=== PATIENT | male | born 1940 | race Caucasian/White ===

== ENCOUNTER 2019-08-18 09:50 | Outpatient (CLI) | payer MEDICARE, SELFPAY ==
--- NOTE | 2019-08-18 10:48 | CT_ITS ---
WS: [id number] CT ABDOMEN AND PELVIS WITH CONTRAST HISTORY: BLADDER MASS TECHNIQUE: Imaging performed of the abdomen and pelvis with IV contrast. Two phase imaging of the ab domen. Coronal and sagittal reformats are submitted. All CT scans at [facility] use at le ast one of these dose optimization techniques: automated exposure control; mA and/or kV adjustment pe r patient size (includes targeted exams where dose is matched to clinical indication); or iterative r econstruction. IV CONTRAST: Visipaque 320; 95 mL IV. Oral contrast: No DLP: 2116.53 mGycm COMPARISON: Ultrasound 03/04/2012 and prior chest CTA 07/08/2015. Lower thorax: Lung bases are clear. Heart is normal size. Small hiatal hernia. Liver/biliary system: Liver is top normal size. There are several scattered hypodensities throughout the liver. There is an additional mass in the RIGHT lobe of the liver with variable peripheral globul ar enhancement. Mass measures 8.0 x 5.1 cm. Mass has been described in the liver on a prior ultrasoun d from [address] from 2014. Suspect this is an atypical hemangioma. The additional smaller scattered hypodensities are probably cysts but too small to characterize. Gallbladder: Normal. No gallstones or wall thickening. No pericholecystic fluid. Pancreas: Normal. Spleen: Normal size spleen with granulomata. Adrenal glands: Normal. Right kidney: Several small cortical cysts. The largest measures 1.1 cm from the lower pole. No obstr uction or mass. Left kidney: Normal. Aorta: Tortuous ectatic aorta. 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 Lymphadenopathy: None. Free fluid: None. GI tract: Unremarkable. Abdominal wall: Small fat-containing abdominal hernia. Pelvis: Well-distended urinary bladder. There is very mild diffuse bladder wall thickening. Markedly enlarged prostate gland indents the posterior bladder. Prostate gland measures 8.4 x 5.6 x 6.2 cm and contains calcification. Bones: Mild narrowing of the hip joints. No osteoblastic or osteolytic bone disease. CT/CT abdomen pelvis w con* [id number] IMPRESSION: 1. Markedly enlarged prostate gland measuring 8.4 x 5.6 x 6.2 cm. Evaluate for possible prostate cancer. 2. Mild diffuse thickening of the bladder wall may be due to bladder outlet ob struction. 3. Hepatic mass measures 8.0 x 5.1 cm. 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 4. Tortuous ectatic aorta with a saccular aneurysm measuring 3.5 cm.
[2019-08-18] MEDS: iodixanol 320 mg/mL 100mL Btl IV (11:20)
== END 2019-08-18 09:51 | disposition home or self-care (01) ==
LOC: RADWPI 09:58
PROVIDERS: Family Provider Internal Medicine; PCP Internal Medicine; Visit Provider Internal Medicine
DX: N32.89 Other specified disorders of bladder (principal); N40.0 Benign prostatic hyperplasia without lower urinary tract symptoms; R16.0 Hepatomegaly, not elsewhere classified; I71.9 Aortic aneurysm of unspecified site, without rupture
CPT/HCPCS: 74177; Q9967

== ENCOUNTER → 2019-10-05 09:47 | Outpatient (BNVA) | payer MEDICARE, SELFPAY | PROVIDERS: Family Provider Internal Medicine; PCP Internal Medicine; Visit Provider Urology | DX: N40.0 Benign prostatic hyperplasia without lower urinary tract symptoms (principal); R97.20 Elevated prostate specific antigen [PSA]; C67.4 Malignant neoplasm of posterior wall of bladder | CPT/HCPCS: 81001; 84153 ==

== ENCOUNTER → 2019-10-13 09:23 | Outpatient (BNVA) | payer MEDICARE, SELFPAY | PROVIDERS: Family Provider Internal Medicine; PCP Internal Medicine; Visit Provider Urology | DX: C67.9 Malignant neoplasm of bladder, unspecified (principal); C67.4 Malignant neoplasm of posterior wall of bladder | CPT/HCPCS: 81001 ==

== ENCOUNTER → 2019-12-16 10:30 | Outpatient (BNVA) | payer MEDICARE, SELFPAY | PROVIDERS: Family Provider Internal Medicine; PCP Internal Medicine; Visit Provider Urology | DX: C67.4 Malignant neoplasm of posterior wall of bladder (principal) | CPT/HCPCS: 81001 ==

== ENCOUNTER 2020-06-06 13:07 | Emergency (ER) | payer MEDICARE, SELFPAY ==
[2020-06-06] VITALS (9 sets, daily range): BP systolic 134–161; BP diastolic 81–100; PULSE 67–92; RESP 12–20; TEMP 36.9–37.1; O2SAT 95–99; BMI 23.7
--- NOTE | 2020-06-06 15:20 | ED_ITS ---
HPI - COVID General: Chief Complaint: COVID symptoms Stated Complaint: COVID+, BCC CHECKED Time Seen by Provider: 06/06/20 13:47 Triage information: No fever, cough or shortness of breath . Exposure to COVID + person last 14 days History of Present Illness: HPI Narrative: Bob is a pleasant 79-year-old male presents emergency room with complaint of recently being diagnosed with Covid. He is not really having any symptoms. He was seen at [facility] today and found to be positive on a rapid antigen he felt a little weak but other than that he has been fine. He does have a history of hypertension ischemic cardiomyopathy systolic congestive heart failure as well as bladder cancer. His breathing is at his baseline he is not had any change she has not had a significant cough. Overall he says he has very few to no symptoms at this time. MD complaint: known COVID positive Prior covid testing: yes, results known Prior testing date: 06/06/20 COVID 19 common symptoms: positive cough and fatigue; negative dyspnea, throat pain, nasal congestion, nausea, vomiting or diarrhea COVID 19 other sytmptoms: negative chest pain Onset (ago): day(s) Pertinent comorbid conditions: hypertension, heart disease and COPD/respiratory disease Treatment prior to arrival: none COVID Results: No Data to Display Review of Systems Const: Reports: fatigue ENMT: Denies: throat pain, ear or mastoid pain, nasal discharge or nasal congestion Card: Denies: chest pain, edema, dyspnea on exertion or orthopnea Resp: Denies: dyspnea GI: Denies: abdominal pain, nausea, vomiting, hematemesis, coffee ground emesis, diarrhea, constipation, bloating, hematochezia or melena : Denies: flank pain, dysuria, urinary frequency or urinary urgency Skin/Breast: Denies: rash or pruritus PFSH ED PFSH: Medical History (Updated 06/06/20 @ 15:48 by Dani Lewis DO) Bladder cancer Elevated PSA Enlarged prostate HTN (hypertension) Hyperlipidemia Ischemic cardiomyopathy Systolic heart failure Surgical History S/P PTCA (percutaneous transluminal coronary angioplasty) Family History Father , at age 91 No problems noted. Mother , at age 91 No problems noted. 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 History of recent travel: Yes ([place]) Out of country: Yes Physical Exam Const: COMMON NORMALS: no acute distress GENERAL APPEARANCE: cooperative and comfortable ORIENTATION/CONSCIOUSNESS: Yes awake, Yes oriented to person, Yes oriented to place and Yes oriented to time HENMT: COMMON NORMALS: normocephalic, atraumatic and hearing grossly normal bilaterally HEAD & SCALP: normocephalic and atraumatic Neck/C-Spine: COMMON NORMALS: no JVD Resp: COMMON NORMALS: normal respiratory effort, No retractions, No use of accessory muscles and clear to auscultation bilaterally AUSCULTATION: clear to auscultation bilaterally Cardio: COMMON NORMALS: no JVD, regular rate, regular rhythm and No murmurs present (Cardio) RATE: regular rate RHYTHM: regular rhythm GI: COMMON NORMALS: Soft to palpation and No hepatosplenomegaly present AUSCULTATION: Yes normoactive bowel sounds PALPATION: Yes Soft to palpation, No Tenderness to palpation present (GI), No Guarding due to palpation present (GI) and Yes No hepatosplenomegaly present Extremity: COMMON NORMALS: normal to inspection, capillary refill normal, no clubbing, cyanosis or edema, no calf tenderness and no pedal edema Neuro: SENSORIUM/ORIENTATION: Yes oriented to person, Yes oriented to place and Yes oriented to time Skin: COMMON NORMALS: no rashes or lesions noted GENERAL SKIN EXAM: no rashes or lesions noted Course Vital Signs: Vital signs: Vital Signs Temperature 98.4 F 06/06/20 19:57 Pulse Rate 70 06/06/20 19:57 Respiratory Rate 18 06/06/20 19:57 Blood Pressure 142/82 06/06/20 19:57 Pulse Oximetry 96 06/06/20 19:57 MDM - COVID MDM Narrative: Medical decision making narrative: Patient tested positive earlier today at [facility] and a rapid antigen test we called to get documentation unfortunately they do not have a printout on their machine but they do recorded in her chart. Verified this with her lab and also talk to Dr. Weir who is on-call for [facility]. They can affirm that he did test positive. I discussed the option of getting IV infusion of monoclonal antibodies with the patient. We discussed the risks and the benefits and why it is that he qualifies. He would like to go ahead and proceed. Will have him sign the consents and start the infusion here in the hospital nursing is checking to see if he will have it here in the ER or if he will be brought over to the outpatient GI lab. Patient completed infusion in the ER department and was discharged home. Discussed signs and symptoms of worsening encouraged to worsen if is any difficulty breathing. COVID Results: No Data to Display Bamlanivimab Consideration Inclusion/Exclusion Criteria age >/= 65 positive rapid antigent test other site ([facility]) hypertension, cardiovascular disease and COPD/other respiratory disease not requiring hospitalization, not requiring oxygen (if not chronically on oxygen) and no increase oxygen requirement (if chronically on oxygen) Patient education Bamlanivimab education: patient/family/caregiver received/reviewed fact sheet, Emergency Use Authorization/unapproved drug status discussed with patient/family/caregiver, alternatives to this treatment discussed with patient/family/caregiver, risks and benefits of medication reviewed with p atient/family/caregiver, patient/family/caregiver given opportunity for questions, which were answered and patient consents to receiving Bamlanivimab Plan for treatment Meets criteria for BAM infusion Bamlanivimab information given and Order infusion of Bamlanivimab today. Other information Direct antigen test at [facility] confirmed with their office as well as with Dr. Weir. He had a positive direct antigen their machine is not printing out a formal result it is read off the machine and then entered into their computer system. Discharge Plan Discharge Patient Disposition: Home Clinical Impression: Asymptomatic COVID-19 virus infection Condition: Stable Prescriptions: No Action nitroglycerin [Nitrostat] 0.4 mg tablet, sublingual 0.4 mg SUBLINGUAL DIRECTED RF: 0 cholecalciferol (vitamin D3) 400 unit capsule 400 unit PO DAILY RF: 0 lisinopril 2.5 mg tablet 1.25 mg PO BID RF: 0 alprazolam 0.25 mg tablet 0.25 mg PO BID RF: 0 rosuvastatin 5 mg tablet 5 mg PO DAILY Qty: 90 RF: 3 sertraline 25 mg tablet 25 mg PO DAILY RF: 0 Discharge Orders: Discharge Order (Routine); Ordered 06/06/20 Ordered By: Renetta Gama Referrals: Bryn Sandoval DO [Primary Care Provider] - 1-3 days Discharge Diet: Usual diet Discharge Activity: Resume usual activity Activity Restrictions/Additional Instructions: Follow-up with your primary care doctor with the emergency room if you have any further symptoms, or worsening symptoms of shortness of breath. Coding Level of Care Code ED Abrasive Worker for Chg Fwd Exam Comprehensive
--- NOTE | 2020-06-14 14:16 | DCPLANNER ---
healthcare account manager made follow up phone call with patient after receiving the BAM infusion.
== END 2020-06-06 19:45 | disposition home or self-care (01) ==
PROVIDERS: Emergency Provider Emergency Medicine; PCP Internal Medicine
DX: U07.1 COVID-19 (principal); E78.5 Hyperlipidemia, unspecified; I11.0 Hypertensive heart disease with heart failure; I50.20 Unspecified systolic (congestive) heart failure; Z85.51 Personal history of malignant neoplasm of bladder
CPT/HCPCS: 12345; 96365; 99283; 99284; J7050

== ENCOUNTER 2020-09-26 07:18 | Outpatient (CLI) | payer MEDICARE, SELFPAY ==
--- NOTE | 2020-09-26 07:28 | US_ITS ---
WS: [id number] ULTRASOUND ABDOMEN CLINICAL INFORMATION: LIVER MASS KIDNEY CYSTS COMPARISON: CT September 07, 2019 FINDINGS: Liver Size: Normal. Craniocaudal length: 14.8 cm. Echogenicity: Normal. Surface nodularity: None. Mass (size and location): Heterogeneous hyperechoic mass in the right hepatic lobe measuring 4.6 x 5. 4 x 4.6 cm similar to ultrasound March 14, [address] Bile ducts Intrahepatic ducts: Normal. Common bile duct diameter: 0.2 cm. Gallbladder Normal. Gallstones: None. Gallbladder sludge: None. Gallbladder wall thickening: None. Pericholecystic fluid: None. Sonographic Peterson sign: Absent. Pancreas Not well visualized Spleen Splenomegaly: None. Craniocaudal length: 10.7 cm. Right kidney: Small simple cysts Hydronephrosis: None. Size: 12.0 cm x 5.2 cm x 5.0 cm Left kidney: Normal. Hydronephrosis: None. Size: 9.9 cm x 3.9 cm x 4.2 cm. Tortuous ectatic aorta with aneurysm measuring 3.9 x 4.0 cm unchanged from recent CT Diffuse bladder wall thickening can be seen with chronic cystitis. Nodular enlarged prostate measures 7.1 x 6.6 x 3.7 cm Ascites: None. US/US abdomen complete* [id number] IMPRESSION: 1. Heterogeneous hyperechoic hepatic mass is unchanged from the prior studies nonspecific but most likely hemangioma. 2. Aneurysmal abdominal aorta unchanged 3. Simple cysts right kidney. 4. Diffuse bladder wall thickening can be seen with bladder outlet obstruction . 5. Enlarged prostate as seen on the recent CT. Recommend correlation PSA.
== END 2020-09-26 07:19 | disposition home or self-care (01) ==
LOC: US 07:19
PROVIDERS: PCP Internal Medicine; Visit Provider Family Medicine
DX: Z87.898 Personal history of other specified conditions (principal); Q61.02 Congenital multiple renal cysts; N40.0 Benign prostatic hyperplasia without lower urinary tract symptoms; I71.4 Abdominal aortic aneurysm, without rupture; R16.0 Hepatomegaly, not elsewhere classified
CPT/HCPCS: 76700

== ENCOUNTER → 2020-11-16 10:21 | Outpatient (BNVA) | payer MEDICARE, SELFPAY | PROVIDERS: PCP Internal Medicine; Visit Provider Urology | DX: C67.4 Malignant neoplasm of posterior wall of bladder (principal); R97.20 Elevated prostate specific antigen [PSA]; N40.0 Benign prostatic hyperplasia without lower urinary tract symptoms | CPT/HCPCS: 81003 ==

== ENCOUNTER 2021-01-08 14:09 | Emergency (ER) | payer MEDICARE, SELFPAY ==
[2021-01-08 14:25] VITALS: BP 133/78; PULSE 71; RESP 18; TEMP 36.6; O2SAT 97; BMI 24.3
[2021-01-08 14:32] VITALS: BP 128/77; PULSE 55; RESP 18; O2SAT 98
--- NOTE | 2021-01-08 15:16 | ECG_ITS ---
[facility] Test Date: 2021-01-08 Pat Name: Bob Barreto Department: Room: Gender: Male [employer] Machine: : 1940 Requested By: Amol Lancaster Order Number: [id number] Christopher MD: Ancelmo Hudson M.D. Measurements Intervals [place] Rate: 54 P: 45 IN: 206 QRS: -19 QRSD: 95 T: 52 QT: 390 QTc: 371 Interpretive Statements SINUS BRADYCARDIA WITH SINUS ARRHYTHMIA POSSIBLE ANTERIOR MYOCARDIAL INFARCTION [30 ms Q WAVE IN V3/V4, OR R < 0.2 mV IN V4], OF INDETERMINATE AGE Compared to ECG 01/08/2021 16:14:06 First degree AV block no longer present Myocardial infarct finding still present Electronically Signed On 01-09-2021 21:05:50 CDT by Ancelmo Hudson M.D. [email or web address]
--- NOTE | 2021-01-08 15:17 | W.ED.CHESTPA ---
Documented by User: Amol Lancaster MD 01/08/21 17:59 HPI - Chest Pain General: Chief Complaint: Chest Pain Stated Complaint: cp Time Seen by Provider: 01/08/21 15:12 History of Present Illness: HPI narrative: This patient is a 80-year-old male who presents to the emergency department with chest pain that began around 7 AM this morning. Patient has taken a total of 3 nitro today but still having a nagging pressure type pain left chest. Patient does have a history of cardiac stents in the past. Patient did take aspirin 3 baby aspirin today. Will do medical evaluation treat as needed complaint: chest pain and chest heaviness Pertinent past history: coronary artery disease Onset (ago): hour(s) Timing of current episode: episodic Prior episodes: Yes Onset: during rest Pain location: substernal and left chest Pain radiation: none Severity: similar to previous episodes Quality: aching Relieving factors: nothing Exacerbating factors: nothing Associated symptoms: Deny abdominal pain, dyspnea, fever(s), nausea, palpitations or vomiting Review of Systems General: Reports: 10 or more systems reviewed and unremarkable except in HPI and below Const: Denies: fever(s), chills, body aches or fatigue Eyes: Denies: change in vision or blurry vision ENMT: Denies: throat pain, hoarseness or mouth pain Card: Reports: chest pain; Denies: palpitations, irregular heart rhythm, edema, swelling of feet/ankles or lightheadedness Resp: Denies: dyspnea, productive cough, non-productive cough, wheezing or pain on inspiration GI: Denies: abdominal pain, nausea or vomiting : Denies: flank pain, dysuria, urinary frequency, urinary urgency or urinary hesitancy Musc: Denies: neck pain, back pain, extremity pain, extremity swelling, joint pain, joint swelling, joint redness, joint warmth or limited range of motion Skin/Breast: Denies: rash, pruritus, erythema or skin tenderness Neuro: Denies: headache(s), numbness in extremities or weakness in extremities Psych: Denies: anxiety or depression PFS ED PFSH: Medical History (Updated 01/08/21 @ 18:53 by Ruben Cool DO) Bladder cancer Elevated PSA Enlarged prostate HTN (hypertension) Hyperlipidemia Ischemic cardiomyopathy Systolic heart failure Surgical History S/P PTCA (percutaneous transluminal coronary angioplasty) Family History Father , at age 91 No problems noted. Mother , at age 91 No problems noted. 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 History of recent travel: No ([employer]) Physical Exam Const: COMMON NORMALS: no acute distress, average body habitus, patient oriented x3, no limitations, healthy appearing, alert and well nourished HENMT: COMMON NORMALS: normocephalic, atraumatic, hearing grossly normal bilaterally, external ears normal, EAC's normal, TM's normal bilaterally, Normal external nose present, Normal nasal mucous membranes and turbinates present, moist oral mucous membranes, oropharynx normal, dentition normal and gingiva normal HEAD & SCALP: normocephalic and atraumatic NOSE: Normal external nose present and Normal nasal mucous membranes and turbinates present EXTERNAL EAR: Yes external ears normal EXTERNAL AUDITORY CANAL: EAC's normal TYMPANIC MEMBRANE: TM's normal bilaterally Neck/C-Spine: COMMON NORMALS: full ROM, no lymphadenopathy, supple, no meningeal signs, no JVD, Thyroid normal and No carotid bruits THYROID: Thyroid normal Chest: COMMONS NORMALS: normal inspection of the chest, normal palpation of entire chest wall, normal inspection of the breasts and normal palpation of the breasts Breast/axilla inspection: Yes normal inspection of the breasts BREAST/AXILLA PALPATION: Yes normal palpation of the breasts Resp: COMMON NORMALS: normal respiratory effort, No retractions, No use of accessory muscles, clear to auscultation bilaterally and percussion normal AUSCULTATION: clear to auscultation bilaterally PERCUSSION: percussion normal Cardio: COMMON NORMALS: no JVD, regular rate, regular rhythm, S1 normal heart sound present, S2 normal heart sound present, No gallops present (Cardio), No clicks present (Cardio), No murmurs present (Cardio), No rub (Cardio) and Peripheral pulses 2+ throughout RATE: regular rate RHYTHM: regular rhythm HEART SOUNDS: S1 normal heart sound present and S2 normal heart sound present PERIPHERAL PULSES: Peripheral pulses 2+ throughout GI: COMMON NORMALS: Normal to inspection, nondistended, normoactive bowel sounds present, Soft to palpation, non-tender, No hepatosplenomegaly present, no masses and no bruits PALPATION: Yes Soft to palpation and Yes No hepatosplenomegaly present : COMMON NORMALS: Yes no CVA tenderness BLADDER/KIDNEY EXAM: Yes no CVA tenderness Back/Pelvis: COMMON NORMALS: no CVA tenderness, thoracic and lumbar spine normal to inspection, no thoracic nor lumbar tenderness, thoraco-lumbar ROM normal and straight leg raise negative bilaterally Extremity: COMMON NORMALS: normal to inspection, full ROM, capillary refill normal, no joint enlargement, no clubbing, cyanosis or edema, no calf tenderness and no pedal edema Neuro: COMMON NORMALS: patient oriented x3 SENSORIUM/ORIENTATION: Yes alert MENINGEAL SIGNS: Yes no meningeal signs Course Vital Signs: Vital signs: Vital Signs Temperature 97.8 F 01/08/21 14:25 Pulse Rate 58 L 01/08/21 18:19 Respiratory Rate 12 01/08/21 18:19 Blood Pressure 152/92 01/08/21 18:19 Pulse Oximetry 98 01/08/21 18:19 MDM - Chest Pain Lab Data: Labs: Lab Results 01/08/21 01/08/21 01/08/21 Range/Units 15:25 15:25 15:25 WBC 6.3 (4.0-10.0) 10^3/ uL RBC 4.17 (4.1-5.3) 10^6/u L Hgb 13.2 (11.7-16.6) g/dL Hct 39.8 L (42.0-52.0) % MCV 95.4 H (80-94) fL MCH 31.7 (28.0-34.0) pg MCHC 33.2 (30.0-36.0) g/dL RDW 12.6 (12.1-15.1) % Plt Count 162 (130-400) 10^3/c mm MPV 10.1 (7.4-10.4) fL Neut % (Auto) 52.9 % Lymph % (Auto) 29.4 % [place] % (Auto) 14.2 % Eos % (Auto) 2.4 % Baso % (Auto) 0.6 % Neut # (Auto) 3.35 (1.8-7.7) 10^3/u L Lymph # (Auto) 1.9 (0.8-4.8) 10^3/u L [place] # (Auto) 0.9 (0.2-0.9) 10^3/u L Eos # (Auto) 0.2 (0.0-0.8) 10^3/u L Baso # (Auto) 0.0 (0.0-0.1) 10^3/u L Nucleated RBC % (a uto) 0 % Nucleated RBCs # 0.0 /100WBC PT 13.50 (12.1-14.9) SECO NDS INR 1.00 (0.8-1.2) APTT 26.4 (23.9-36.7) SECO NDS D-Dimer 0.58 (0-0.59) ug/mIFE U Sodium 135 L (136-145) mmol/L Potassium 4.7 (3.5-5.1) mmol/L Chloride 100 (98-107) mmol/L Carbon Dioxide 26 (22-29) mmol/L Anion Gap 13.7 (5-19) BUN 13 (8-23) mg/dL Creatinine 1.2 (0.7-1.2) mg/dL GFR Calculation Not Reportable Glucose 105 (65-115) mg/dL Calculated Osmolal ity 280 L (285-295) mOsm/k g Calcium 9.1 (8.5-10.5) mg/dL Total Bilirubin 0.8 (0.15-1.2) mg/dL AST 28 (0-40) U/L ALT 23 (0-41) U/L Alkaline Phosphata se 61 (40-130) IU/L Troponin T Baselin e (0-15) ng/L Troponin T 120 Min ione (0-15) ng/L Delta Troponin T (0-10) ABS# NT-Pro-B Natriuret Pep 136 (0-450) pg/mL Total Protein 6.3 L (6.6-8.7) g/dL Albumin 4.0 (3.5-5.2) g/dL Globulin 2.3 (1.3-4.6) g/dL 01/08/21 01/08/21 Range/Units 15:25 17:19 WBC (4.0-10.0) 10^3/ uL RBC (4.1-5.3) 10^6/u L Hgb (11.7-16.6) g/dL Hct (42.0-52.0) % MCV (80-94) fL MCH (28.0-34.0) pg MCHC (30.0-36.0) g/dL RDW (12.1-15.1) % Plt Count (130-400) 10^3/c mm MPV (7.4-10.4) fL Neut % (Auto) % Lymph % (Auto) % [place] % (Auto) % Eos % (Auto) % Baso % (Auto) % Neut # (Auto) (1.8-7.7) 10^3/u L Lymph # (Auto) (0.8-4.8) 10^3/u L [place] # (Auto) (0.2-0.9) 10^3/u L Eos # (Auto) (0.0-0.8) 10^3/u L Baso # (Auto) (0.0-0.1) 10^3/u L Nucleated RBC % (a uto) % Nucleated RBCs # /100WBC PT (12.1-14.9) SECO NDS INR (0.8-1.2) APTT (23.9-36.7) SECO NDS D-Dimer (0-0.59) ug/mIFE U Sodium (136-145) mmol/L Potassium (3.5-5.1) mmol/L Chloride (98-107) mmol/L Carbon Dioxide (22-29) mmol/L Anion Gap (5-19) BUN (8-23) mg/dL Creatinine (0.7-1.2) mg/dL GFR Calculation Glucose (65-115) mg/dL Calculated Osmolal ity (285-295) mOsm/k g Calcium (8.5-10.5) mg/dL Total Bilirubin (0.15-1.2) mg/dL AST (0-40) U/L ALT (0-41) U/L Alkaline Phosphata se (40-130) IU/L Troponin T Baselin e 18 H (0-15) ng/L Troponin T 120 Min ione 16.89 H (0-15) ng/L Delta Troponin T -1.11 L (0-10) ABS# NT-Pro-B Natriuret Pep (0-450) pg/mL Total Protein (6.6-8.7) g/dL Albumin (3.5-5.2) g/dL Globulin (1.3-4.6) g/dL EKG Data^: EKG 1: Attestation: I personally reviewed and interpreted this EKG as follows: EKG interpretation date: 01/08/21 EKG interpretation time: 14:24 Prior EKG tracings: not available for review Interpretation: Sinus rhythm with a heart rate of 67 nonspecific EKG changes. Abnormal EKG EKG 2: Attestation: I personally reviewed and interpreted this EKG as follows: EKG interpretation date: 01/08/21 EKG interpretation time: 16:21 Prior EKG tracings: available for review Interpretation: Sinus bradycardia with sinus arrhythmia heart rate 54 nonspecific EKG changes chronic abnormal EKG Discharge Plan Discharge Patient Disposition: Home Clinical Impression: Chest pain Qualifiers: Chest pain type: unspecified Qualified Code(s): R07.9 - Chest pain, unspecified Condition: Stable Prescriptions: No Action nitroglycerin [Nitrostat] 0.4 mg tablet, sublingual 0.4 mg SUBLINGUAL DIRECTED RF: 0 alprazolam 0.25 mg tablet 0.25 mg PO BID PRNRF: 0 cholecalciferol (vitamin D3) 10 mcg (400 unit) capsule 400 unit PO BID RF: 0 aspirin [Adult Low Dose Aspirin] 81 mg tablet,delayed release (DR/EC) 162 mg PO DAILY RF: 0 lisinopril 2.5 mg tablet 2.5 mg PO DAILY Qty: 90 RF: 3 rosuvastatin 5 mg tablet 5 mg PO DAILY Qty: 90 RF: 3 Discharge Orders: Discharge ED (Routine); Ordered 01/08/21 Ordered By: Ruben Cool Referrals: Bryn Sandoval DO [Primary Care Provider] - 4-7 days Patient Instructions: Chest Pain (ED) Activity Restrictions/Additional Instructions: Return for worsening or repeated episodes of chest discomfort, shortness of breath, fever, cough or congestion, any other concerning symptoms. Call your heart doctor tomorrow and let them know you were here, as more outpatient tests may be needed Coding Level of Care Code ED Assembly Room Supervisor for Chg Fwd Exam Comprehensive Documented by User: Ruben Cool DO 01/09/21 05:33 HPI - Chest Pain General: Chief Complaint: Chest Pain Stated Complaint: cp Time Seen by Provider: 01/08/21 15:12 PFSH ED PFSH: Medical History (Updated 01/08/21 @ 18:53 by Ruben Cool DO) Bladder cancer Elevated PSA Enlarged prostate HTN (hypertension) Hyperlipidemia Ischemic cardiomyopathy Systolic heart failure Surgical History S/P PTCA (percutaneous transluminal coronary angioplasty) Family History Father , at age 91 No problems noted. Mother , at age 91 No problems noted. 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 Lancaster at shift change. This gentleman has had chest pain since 7 AM. His EKG not show specific ST elevation x2, he does have a borderline NC interval. No evidence of 2nd or thrid degree heart block. His troponin did not rise at 2 hours, and remains negative. His other laboratory is benign. The patient refused chest x-ray. His D-dimer is negative as well. The patient was offered an outpatient stress test, but declined. Lab Data: Labs: Lab Results 01/08/21 01/08/21 01/08/21 Range/Units 15:25 15:25 15:25 WBC 6.3 (4.0-10.0) 10^3/ uL RBC 4.17 (4.1-5.3) 10^6/u L Hgb 13.2 (11.7-16.6) g/dL Hct 39.8 L (42.0-52.0) % MCV 95.4 H (80-94) fL MCH 31.7 (28.0-34.0) pg MCHC 33.2 (30.0-36.0) g/dL RDW 12.6 (12.1-15.1) % Plt Count 162 (130-400) 10^3/c mm MPV 10.1 (7.4-10.4) fL Neut % (Auto) 52.9 % Lymph % (Auto) 29.4 % [place] % (Auto) 14.2 % Eos % (Auto) 2.4 % Baso % (Auto) 0.6 % Neut # (Auto) 3.35 (1.8-7.7) 10^3/u L Lymph # (Auto) 1.9 (0.8-4.8) 10^3/u L [place] # (Auto) 0.9 (0.2-0.9) 10^3/u L Eos # (Auto) 0.2 (0.0-0.8) 10^3/u L Baso # (Auto) 0.0 (0.0-0.1) 10^3/u L Nucleated RBC % (a uto) 0 % Nucleated RBCs # 0.0 /100WBC PT 13.50 (12.1-14.9) SECO NDS INR 1.00 (0.8-1.2) APTT 26.4 (23.9-36.7) SECO NDS D-Dimer 0.58 (0-0.59) ug/mIFE U Sodium 135 L (136-145) mmol/L Potassium 4.7 (3.5-5.1) mmol/L Chloride 100 (98-107) mmol/L Carbon Dioxide 26 (22-29) mmol/L Anion Gap 13.7 (5-19) BUN 13 (8-23) mg/dL Creatinine 1.2 (0.7-1.2) mg/dL GFR Calculation Not Reportable Glucose 105 (65-115) mg/dL Calculated Osmolal ity 280 L (285-295) mOsm/k g Calcium 9.1 (8.5-10.5) mg/dL Total Bilirubin 0.8 (0.15-1.2) mg/dL AST 28 (0-40) U/L ALT 23 (0-41) U/L Alkaline Phosphata se 61 (40-130) IU/L Troponin T Baselin e (0-15) ng/L Troponin T 120 Min ione (0-15) ng/L Delta Troponin T (0-10) ABS# NT-Pro-B Natriuret Pep 136 (0-450) pg/mL Total Protein 6.3 L (6.6-8.7) g/dL Albumin 4.0 (3.5-5.2) g/dL Globulin 2.3 (1.3-4.6) g/dL 01/08/21 01/08/21 Range/Units 15:25 17:19 WBC (4.0-10.0) 10^3/ uL RBC (4.1-5.3) 10^6/u L Hgb (11.7-16.6) g/dL Hct (42.0-52.0) % MCV (80-94) fL MCH (28.0-34.0) pg MCHC (30.0-36.0) g/dL RDW (12.1-15.1) % Plt Count (130-400) 10^3/c mm MPV (7.4-10.4) fL Neut % (Auto) % Lymph % (Auto) % [place] % (Auto) % Eos % (Auto) % Baso % (Auto) % Neut # (Auto) (1.8-7.7) 10^3/u L Lymph # (Auto) (0.8-4.8) 10^3/u L [place] # (Auto) (0.2-0.9) 10^3/u L Eos # (Auto) (0.0-0.8) 10^3/u L Baso # (Auto) (0.0-0.1) 10^3/u L Nucleated RBC % (a uto) % Nucleated RBCs # /100WBC PT (12.1-14.9) SECO NDS INR (0.8-1.2) APTT (23.9-36.7) SECO NDS D-Dimer (0-0.59) ug/mIFE U Sodium (136-145) mmol/L Potassium (3.5-5.1) mmol/L Chloride (98-107) mmol/L Carbon Dioxide (22-29) mmol/L Anion Gap (5-19) BUN (8-23) mg/dL Creatinine (0.7-1.2) mg/dL GFR Calculation Glucose (65-115) mg/dL Calculated Osmolal ity (285-295) mOsm/k g Calcium (8.5-10.5) mg/dL Total Bilirubin (0.15-1.2) mg/dL AST (0-40) U/L ALT (0-41) U/L Alkaline Phosphata se (40-130) IU/L Troponin T Baselin e 18 H (0-15) ng/L Troponin T 120 Min ione 16.89 H (0-15) ng/L Delta Troponin T -1.11 L (0-10) ABS# NT-Pro-B Natriuret Pep (0-450) pg/mL Total Protein (6.6-8.7) g/dL Albumin (3.5-5.2) g/dL Globulin (1.3-4.6) g/dL Discharge Plan Discharge Patient Disposition: Home Clinical Impression: Chest pain Qualifiers: Chest pain type: unspecified Qualified Code(s): R07.9 - Chest pain, unspecified Condition: Stable Prescriptions: No Action nitroglycerin [Nitrostat] 0.4 mg tablet, sublingual 0.4 mg SUBLINGUAL DIRECTED RF: 0 alprazolam 0.25 mg tablet 0.25 mg PO BID PRNRF: 0 cholecalciferol (vitamin D3) 10 mcg (400 unit) capsule 400 unit PO BID RF: 0 aspirin [Adult Low Dose Aspirin] 81 mg tablet,delayed release (DR/EC) 162 mg PO DAILY RF: 0 lisinopril 2.5 mg tablet 2.5 mg PO DAILY Qty: 90 RF: 3 rosuvastatin 5 mg tablet 5 mg PO DAILY Qty: 90 RF: 3 Discharge Orders: Discharge ED (Routine); Ordered 01/08/21 Ordered By: Ruben Cool Referrals: Bryn Sandoval DO [Primary Care Provider] - 4-7 days Patient Instructions: Chest Pain (ED) Activity Restrictions/Additional Instructions: Return for worsening or repeated episodes of chest discomfort, shortness of breath, fever, cough or congestion, any other concerning symptoms. Call your heart doctor tomorrow and let them know you were here, as more outpatient tests may be needed Coding Level of Care Code ED Assembly Room Supervisor for [employer] Fwd Exam Comprehensive
[2021-01-08 15:44] LABS: Basophils % 0.6 %; Eosinophils # 0.2 10^3/uL (0.0-0.8); Eosinophils % 2.4 %; Hematocrit 39.8 % (42.0-52.0); Hemoglobin 13.2 g/dL (11.7-16.6); Lymphocytes # 1.9 10^3/uL (0.8-4.8); Lymphocytes % 29.4 %; Mean Corpuscular HGB Conc 33.2 g/dL (30.0-36.0); Mean Corpuscular Hemoglobin 31.7 pg (28.0-34.0); Mean Corpuscular Volume 95.4 fL (80-94); Mean Platelet Volume 10.1 fL (7.4-10.4); Monocytes # 0.9 10^3/uL (0.2-0.9); Monocytes % 14.2 %; Neutrophils # 3.35 10^3/uL (1.8-7.7); Neutrophils % 52.9 %; Nucleated Red Blood Cells % 0 %; Platelet Count 162 10^3/cmm (130-400); Red Blood Count 4.17 10^6/uL (4.1-5.3); Red Cell Distribution Width 12.6 % (12.1-15.1); White Blood Count 6.3 10^3/uL (4.0-10.0)
[2021-01-08 15:54] LABS: Partial Thromboplastin Time 26.4 SECONDS (23.9-36.7)
[2021-01-08 15:57] LABS: D Dimer 0.58 ug/mIFEU (0-0.59)
[2021-01-08 16:02] LABS: Troponin(5th) Baseline 18 ng/L (0-15)
[2021-01-08 16:09] LABS: Alanine Aminotransferase 23 U/L (0-41); Alkaline Phosphatase 61 IU/L (40-130); Anion Gap 13.7 (5-19); Aspartate Amino Transferase 28 U/L (0-40); Blood Urea Nitrogen 13 mg/dL (8-23); Calcium 9.1 mg/dL (8.5-10.5); Carbon Dioxide 26 mmol/L (22-29); Chloride 100 mmol/L (98-107); Creatinine Clr Calc Pharmacy 60.1294; Globulin 2.3 g/dL (1.3-4.6); Glucose 105 mg/dL (65-115); NT Pro B Type Natriuretic Pept 136 pg/mL (0-450); Osmolality Calculated 280 mOsm/kg (285-295); Potassium 4.7 mmol/L (3.5-5.1); Sodium 135 mmol/L (136-145); Total Bilirubin 0.8 mg/dL (0.15-1.2); Total Protein 6.3 g/dL (6.6-8.7)
[2021-01-08] MEDS: lidocaine 2% viscous 15 ML, aluminum-mag hydrox-simethicon 30 ML, sucralfate oral liq 1 GM PO (16:29)
[2021-01-08 16:32] VITALS: PULSE 52
--- NOTE | 2021-01-08 17:16 | ECG_ITS ---
[facility] Test Date: 2021-01-08 Pat Name: Bob Barreto Department: Room: Gender: Male Telephone Order Clerk: : 1940 Requested By: Amol Lancaster Order Number: [id number] Christopher MD: Ancelmo Hudson M.D. Measurements Intervals [place] Rate: 52 P: 48 TX: 213 QRS: -21 QRSD: 97 T: 48 QT: 393 QTc: 368 Interpretive Statements SINUS BRADYCARDIA WITH FIRST DEGREE AV BLOCK LOW QRS VOLTAGE IN PRECORDIAL LEADS [QRS DEFLECTION < 1.0 mV IN CHEST LEADS] ANTERIOR MYOCARDIAL INFARCTION [40+ ms Q WAVE AND/OR ST/T ABNORMALITY IN V3/V4], PROBABLY RECENT ACUTE [place] Compared to ECG 04/17/2019 17:02:20 First degree AV block now present Low QRS voltage now present Sinus rhythm no longer present Left-axis deviation no longer present Myocardial infarct finding still present Electronically Signed On 01-11-2021 0:32:24 CDT by Ancelmo Hudson M.D. [id number]
[2021-01-08 17:19] VITALS: PULSE 55; RESP 18
[2021-01-08 18:05] LABS: Troponin 5 2HR 16.89 ng/L (0-15)
[2021-01-08 18:08] LABS: Troponin 5 2HR Delta -1.11 ABS# (0-10)
[2021-01-08 18:19] VITALS: BP 152/92; PULSE 58; RESP 12; O2SAT 98
== END 2021-01-08 19:16 | disposition home or self-care (01) ==
PROVIDERS: Emergency Medicine; Emergency Provider Emergency Medicine; PCP Internal Medicine
DX: R07.9 Chest pain, unspecified (principal); Z79.82 Long term (current) use of aspirin; Z85.51 Personal history of malignant neoplasm of bladder; E78.5 Hyperlipidemia, unspecified; I11.0 Hypertensive heart disease with heart failure; I50.20 Unspecified systolic (congestive) heart failure
CPT/HCPCS: 36415; 80053; 83880; 84484; 85025; 85378; 85610; 85730; 93005; 99284

== ENCOUNTER → 2021-11-16 08:55 | Outpatient (BNVA) | payer MEDICARE, SELFPAY | PROVIDERS: PCP Internal Medicine; Visit Provider Urology | DX: C67.4 Malignant neoplasm of posterior wall of bladder (principal); R97.20 Elevated prostate specific antigen [PSA] | CPT/HCPCS: 52000; 81003; 99214 ==

== ENCOUNTER 2022-03-29 07:23 | Outpatient (CLI) | payer MEDICARE, SELFPAY | END 2022-03-29 07:24 | disposition home or self-care (01) | PROVIDERS: PCP Internal Medicine; Visit Provider Urology | DX: R97.20 Elevated prostate specific antigen [PSA] (principal); C67.4 Malignant neoplasm of posterior wall of bladder | CPT/HCPCS: 84153; 99213 ==

== ENCOUNTER → 2022-04-12 12:35 | Outpatient (BNVA) | payer MEDICARE, SELFPAY | PROVIDERS: PCP Internal Medicine; Visit Provider Urology | DX: C67.9 Malignant neoplasm of bladder, unspecified (principal); R97.20 Elevated prostate specific antigen [PSA]; C67.4 Malignant neoplasm of posterior wall of bladder | CPT/HCPCS: 81003 ==

== ENCOUNTER 2022-09-26 07:04 | Outpatient (CLI) | payer MEDICARE, SELFPAY | END 2022-09-26 07:05 | disposition home or self-care (01) | LOC: LAB 07:06 | PROVIDERS: PCP Internal Medicine; Visit Provider Urology | DX: R97.20 Elevated prostate specific antigen [PSA] (principal) | CPT/HCPCS: 36415; 84153 ==

== ENCOUNTER → 2022-09-27 12:37 | Outpatient (BNVA) | payer MEDICARE, SELFPAY | PROVIDERS: PCP Internal Medicine; Visit Provider Urology | DX: C67.4 Malignant neoplasm of posterior wall of bladder (principal); R97.20 Elevated prostate specific antigen [PSA] | CPT/HCPCS: 81003; 99213 ==

== ENCOUNTER → 2022-11-12 10:45 | Outpatient (BNVA) | payer MEDICARE, SELFPAY | PROVIDERS: PCP Internal Medicine; Visit Provider Internal Medicine Cardiovascular Disease | DX: I25.5 Ischemic cardiomyopathy (principal); I11.0 Hypertensive heart disease with heart failure; I50.22 Chronic systolic (congestive) heart failure; Z98.61 Coronary angioplasty status; I25.10 Atherosclerotic heart disease of native coronary artery without angina pectoris; Z79.82 Long term (current) use of aspirin | CPT/HCPCS: 99213 ==

== ENCOUNTER → 2022-12-13 15:07 | Outpatient (BNVA) | payer MEDICARE, SELFPAY | PROVIDERS: PCP Internal Medicine; Visit Provider Urology | DX: C67.9 Malignant neoplasm of bladder, unspecified (principal); C67.4 Malignant neoplasm of posterior wall of bladder; R97.20 Elevated prostate specific antigen [PSA] | CPT/HCPCS: 81003 ==

== ENCOUNTER 2023-03-13 21:55 | Emergency (ER) | payer MEDICARE, SELFPAY ==
--- NOTE | 2023-03-13 21:57 | XRR_ITS ---
PROCEDURE INFORMATION: Exam: XR Chest Exam date and time: 03/13/2023 10:10 PM Age: 82 years old Clinical indication: Pain; Chest pressure; Additional info: Cp TECHNIQUE: Imaging protocol: Radiologic exam of the chest. Views: 1 view. COMPARISON: CR XR chest 1V [id number] 06/26/2017 8:07 PM FINDINGS: Lungs: Unremarkable. No consolidation. Pleural spaces: Unremarkable. No pleural effusion. No pneumothorax. Heart/Mediastinum: Unremarkable. No cardiomegaly. There is prominence of the descending thoracic aorta. Bones/joints: Unremarkable. Intraperitoneal space: There is no free intraperitoneal air. XR/XR chest 1V portable [id number] IMPRESSION: No acute cardiopulmonary disease.
[2023-03-13 21:59] VITALS: BP 158/83; PULSE 64; RESP 16; TEMP 36.4; O2SAT 99
--- NOTE | 2023-03-13 22:02 | ECG_ITS ---
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 Measurements Intervals [place] Rate: 61 P: 10 [place]: 194 QRS: 57 QRSD: 92 T: -3 QT: 386 QTc: 392 Interpretive Statements SINUS RHYTHM POSSIBLE ANTERIOR MYOCARDIAL INFARCTION , OF INDETERMINATE AGE [30 ms Q WAVE IN V3/V4, OR R < 0.2 mV IN V4] Compared to ECG 01/08/2021 16:21:33 Sinus bradycardia no longer present Sinus arrhythmia no longer present Myocardial infarct finding still present Electronically Signed On 03-14-2023 6:48:18 CDT by Loyd Garibay M.D. [id number]
--- NOTE | 2023-03-13 22:22 | ED_ITS ---
HPI - Chest Pain General: Chief Complaint: Chest Pain Stated Complaint: cp Time Seen by Provider: 03/13/23 22:03 Source: patient Mode of arrival: ambulatory Limitations: no limitations History of Present Illness: 82-year-old male states that over the last 3 days he has had some substernal chest pain he states been a dull ache and sharp at times. He denies any shortness of breath he denies any nausea or diaphoresis states this is intermittent and random denies any worsening pain with exertion has some relief with nitro he is currently pain-free. Associated symptoms: Deny abdominal pain, dyspnea, fever(s), nausea or vomiting Review of Systems Const: Denies: fever(s), chills, body aches or change in appetite ENMT: Denies: throat pain or dental pain Card: Reports: chest pain Resp: Denies: dyspnea GI: Denies: abdominal pain, nausea, vomiting or diarrhea Musc: Denies: neck pain or back pain Skin/Breast: Denies: rash Neuro: Denies: headache(s) PFSH ED PFSH: Medical History Bladder cancer CAD (coronary artery disease) Elevated PSA Enlarged prostate HTN (hypertension) Hyperlipidemia Ischemic cardiomyopathy Systolic heart failure Surgical History S/P arterial stent S/P PTCA (percutaneous transluminal coronary angioplasty) Family History Father , at age 91 No problems noted. Mother , at age 91 No problems noted. 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 Physical Exam Const: COMMON NORMALS: no acute distress, patient oriented x3 and healthy appearing HENMT: COMMON NORMALS: normocephalic and atraumatic HEAD & SCALP: normocephalic and atraumatic Eye: COMMON NORMALS: Equal, round and reactive pupils present and EOMs intact bilaterally PUPIL: Yes Equal, round and reactive pupils present Neck/C-Spine: COMMON NORMALS: supple Chest: COMMONS NORMALS: normal inspection of the chest and normal palpation of entire chest wall Resp: COMMON NORMALS: normal respiratory effort, No retractions, No use of accessory muscles and clear to auscultation bilaterally AUSCULTATION: clear to auscultation bilaterally Cardio: COMMON NORMALS: regular rate, regular rhythm and No murmurs present (Cardio) RATE: regular rate RHYTHM: regular rhythm GI: COMMON NORMALS: Normal to inspection, nondistended, normoactive bowel sounds present, Soft to palpation, non-tender and no masses PALPATION: Yes Soft to palpation Extremity: COMMON NORMALS: normal to inspection and full ROM Neuro: COMMON NORMALS: patient oriented x3, moves all extremities and no focal motor deficits Psych: COMMON NORMALS: mental status grossly normal, Normal thought process present and cooperative THOUGHT PROCESS: Normal thought process present Skin: COMMON NORMALS: no rashes or lesions noted and no wounds GENERAL SKIN EXAM: no rashes or lesions noted Course Vital Signs: Vital signs: Vital Signs Temperature 97.5 F L 03/13/23 21:59 Pulse Rate 60 03/14/23 00:08 Respiratory Rate 16 03/14/23 00:08 Blood Pressure 127/68 03/14/23 00:08 Pulse Oximetry 96 03/14/23 00:08 MDM - Chest Pain Medical Decision Making Patient presents here chest pain is atypical in nature he is currently pain-free patient's troponins here are normal he has no signs of dissection or pulm embolism he is stable for discharge he is to follow-up with cardiology return if worsening he understands agrees to plan. Medical Records I reviewed the patient's medical records. Lab Data I reviewed the patient's lab results. 03/13/23 22:19 03/13/23 22:19 Radiology Impressions Chest X-Ray 03/13/23 21:57 IMPRESSION: No acute cardiopulmonary disease. Laboratory Results WBC 4.82 10^3/uL (3.29-11.43) 03/13/23 22:19 RBC 4.54 10^6/uL (3.85-5.65) 03/13/23 22:19 Hgb 14.60 g/dL (11.27-16.99) 03/13/23 22:19 Hct 42.3 % (37-53) 03/13/23 22:19 MCV 93.2 fl (82-101) 03/13/23 22:19 MCH 32.2 pg (27-33) 03/13/23 22:19 MCHC 34.5 g/dL (30-55) 03/13/23 22:19 RDW 12.2 % (12.1-15.1) 03/13/23 22:19 Plt Count 151 10^3/cmm (157-399) L 03/13/23 22:19 MPV 9.9 fL (7.4-10.4) 03/13/23 22:19 Neut % (Auto) 48.0 % 03/13/23 22:19 Lymph % (Auto) 30.7 % 03/13/23 22:19 Daniels % (Auto) 17.2 % 03/13/23 22:19 Eos % (Auto) 3.3 % 03/13/23 22:19 Baso % (Auto) 0.6 % 03/13/23 22:19 Neut # (Auto) 2.31 10^3/uL (1.8-7.7) 03/13/23 22:19 Lymph # (Auto) 1.5 10^3/uL (0.8-4.8) 03/13/23 22:19 Daniels # (Auto) 0.8 10^3/uL (0.2-0.9) 03/13/23 22:19 Eos # (Auto) 0.2 10^3/uL (0.0-0.8) 03/13/23 22:19 Baso # (Auto) 0.0 10^3/uL (0.0-0.1) 03/13/23 22:19 Nucleated RBC % (auto) 0 % 03/13/23 22:19 Nucleated RBCs # 0.0 /100WBC 03/13/23 22:19 PT 12.20 SECONDS (12.1-14.9) 03/13/23 22:19 INR 0.88 (0.8-1.2) 03/13/23 22:19 Sodium 136 mmol/L (136-145) 03/13/23 22:19 Potassium 4.4 mmol/L (3.5-5.1) 03/13/23 22:19 Chloride 98 mmol/L (98-107) 03/13/23 22:19 Carbon Dioxide 29 mmol/L (22-29) 03/13/23 22:19 Anion Gap 13.4 (5-19) 03/13/23 22:19 BUN 18 mg/dL (8-23) 03/13/23 22:19 Creatinine 1.1 mg/dL (0.7-1.2) 03/13/23 22:19 GFR Calculation Not Reportable 03/13/23 22:19 Glucose 116 mg/dL (65-115) H 03/13/23 22:19 Calculated Osmolality 285 mOsm/kg (285-295) 03/13/23 22:19 Calcium 9.7 mg/dL (8.5-10.5) 03/13/23 22:19 Total Bilirubin 0.4 mg/dL (0.15-1.2) 03/13/23 22:19 AST 23 U/L (0-40) 03/13/23 22:19 ALT 22 U/L (0-41) 03/13/23 22:19 Alkaline Phosphatase 69 U/L (40-130) 03/13/23 22:19 Troponin T Baseline 15 ng/L (0-15) 03/13/23 22:19 Troponin T 120 Minute 16.92 ng/L (0-15) H 03/14/23 00:30 Delta Troponin T 1.92 ABS# (0-10) 03/14/23 00:30 Total Protein 7.6 g/dL (6.6-8.7) 03/13/23 22:19 Albumin 5.1 g/dL (3.5-5.2) 03/13/23 22:19 Globulin 2.5 g/dL (1.3-4.6) 03/13/23 22:19 Lipase 49 U/L (13-60) 03/13/23 22:19 Discharge Plan Discharge Patient Disposition: Home Clinical Impression: Chest pain Condition: Stable Prescriptions: No Action cholecalciferol (vitamin D3) 10 mcg (400 unit) capsule 400 unit PO BID aspirin [Adult Low Dose Aspirin] 81 mg tablet,delayed release (DR/EC) 162 mg PO DAILY lidocaine HCl 2 % jelly 1 applic intra-urethral ONCE Qty: 1 0RF cyanocobalamin (vitamin B-12) 1,000 mcg capsule 1,000 mcg PO DAILY rosuvastatin 5 mg tablet 5 mg PO DAILY Qty: 30 0RF Rx Instructions: MUST have follow-up with new provider for further refills lisinopril 5 mg tablet 5 mg PO DAILY Qty: 90 3RF nitroglycerin [Nitrostat] 0.4 mg tablet, sublingual 0.4 mg SUBLINGUAL DIRECTED Qty: 25 6RF Discharge Orders: Discharge ED (Routine); Ordered 03/14/23 Ordered By: Lex Pretty Referrals: Loyd Garibay M.D [Physician] - 1-3 days Bryn Sandoval DO [Primary Care Provider] - Discharge Diet: Advance as tolerated Discharge Activity: Resume usual activity Patient Instructions: Chest Pain (ED) Coding Level of Care Code ED Instructional Designer for Margarita Vázquez
[2023-03-13 22:27] LABS: Basophils % 0.6 %; Eosinophils # 0.2 10^3/uL (0.0-0.8); Eosinophils % 3.3 %; Hematocrit 42.3 % (37-53); Lymphocytes # 1.5 10^3/uL (0.8-4.8); Lymphocytes % 30.7 %; Mean Corpuscular HGB Conc 34.5 g/dL (30-55); Mean Corpuscular Hemoglobin 32.2 pg (27-33); Mean Corpuscular Volume 93.2 fl (82-101); Mean Platelet Volume 9.9 fL (7.4-10.4); Monocytes # 0.8 10^3/uL (0.2-0.9); Monocytes % 17.2 %; Neutrophils # 2.31 10^3/uL (1.8-7.7); Nucleated Red Blood Cells % 0 %; Platelet Count 151 10^3/cmm (157-399); Red Blood Count 4.54 10^6/uL (3.85-5.65); Red Cell Distribution Width 12.2 % (12.1-15.1); White Blood Count 4.82 10^3/uL (3.29-11.43)
[2023-03-13] MEDS: aspirin 81 mg Chew Tablet 324 MG PO (22:37)
[2023-03-13 22:40] LABS: INR 0.88 (0.8-1.2)
[2023-03-13 22:46] LABS: Troponin(5th) Baseline 15 ng/L (0-15)
[2023-03-13 22:49] LABS: Alanine Aminotransferase 22 U/L (0-41); Albumin Level 5.1 g/dL (3.5-5.2); Alkaline Phosphatase 69 U/L (40-130); Anion Gap 13.4 (5-19); Aspartate Amino Transferase 23 U/L (0-40); Blood Urea Nitrogen 18 mg/dL (8-23); Calcium 9.7 mg/dL (8.5-10.5); Carbon Dioxide 29 mmol/L (22-29); Chloride 98 mmol/L (98-107); Globulin 2.5 g/dL (1.3-4.6); Glucose 116 mg/dL (65-115); Lipase 49 U/L (13-60); Osmolality Calculated 285 mOsm/kg (285-295); Potassium 4.4 mmol/L (3.5-5.1); Sodium 136 mmol/L (136-145); Total Bilirubin 0.4 mg/dL (0.15-1.2); Total Protein 7.6 g/dL (6.6-8.7)
--- NOTE | 2023-03-13 23:57 | ECG_ITS ---
[facility] Test Date: 2023-03-14 Pat Name: Bob Barreto Department: Room: Gender: Male Provider Relations Coordinator: : 1940 Requested By: Lex Pretty Order Number: [id number] Chritsopher MD: Loyd Garibay M.D. Measurements Intervals [place] Rate: 56 P: 58 [place]: 208 QRS: 11 QRSD: 93 T: 69 QT: 395 QTc: 382 Interpretive Statements SINUS BRADYCARDIA Compared to ECG 03/13/2023 22:02:31 Sinus rhythm no longer present Myocardial infarct finding no longer present Electronically Signed On 03-14-2023 6:49:42 CDT by Loyd Garibay M.D. [email or web address] Ltdmerit health central[facility].[employer]/store/OM/[id number]
[2023-03-14 00:08] VITALS: BP 127/68; PULSE 60; RESP 16; O2SAT 96
[2023-03-14 00:54] LABS: Troponin 5 2HR 16.92 ng/L (0-15)
[2023-03-14 01:05] LABS: Troponin 5 2HR Delta 1.92 ABS# (0-10)
[2023-03-14 01:41] VITALS: BP 127/68; PULSE 60; RESP 16; TEMP 36.4; O2SAT 96
--- NOTE | 2023-03-14 08:59 | DCPLANNER ---
Addendum entered by Niurka Guerra 03/14/23 13:12: Patient has a follow up appointment scheduled for Monday, March 27, 2023 at 1:[address] Johnson at [facility]. Original Note: product communications manager had message to schedule a follow up appointment for patient with cardiology. product communications manager sent patients information to the front office staff at [facility]. Patients information will be printed and reviewed. Clinic will call patient with appointment information.
== END 2023-03-14 01:43 | disposition home or self-care (01) ==
PROVIDERS: Emergency Provider Emergency Medicine; PCP Internal Medicine
DX: R07.9 Chest pain, unspecified (principal); Z79.82 Long term (current) use of aspirin; Z85.51 Personal history of malignant neoplasm of bladder; I25.10 Atherosclerotic heart disease of native coronary artery without angina pectoris; I10 Essential (primary) hypertension; E78.5 Hyperlipidemia, unspecified
CPT/HCPCS: 36415; 71045; 80053; 83690; 84484; 85025; 85610; 93005; 99285

== ENCOUNTER → 2023-03-27 13:07 | Outpatient (BNVA) | payer MEDICARE, SELFPAY | PROVIDERS: PCP Internal Medicine; Visit Provider Internal Medicine Cardiovascular Disease | DX: I25.5 Ischemic cardiomyopathy (principal); R97.20 Elevated prostate specific antigen [PSA]; I11.0 Hypertensive heart disease with heart failure; I50.22 Chronic systolic (congestive) heart failure; I25.10 Atherosclerotic heart disease of native coronary artery without angina pectoris; Z98.61 Coronary angioplasty status | CPT/HCPCS: 99213 ==

== ENCOUNTER → 2023-11-08 11:16 | Outpatient (BNVA) | payer MEDICARE, SELFPAY | PROVIDERS: PCP Internal Medicine; Visit Provider Internal Medicine Cardiovascular Disease | DX: I25.5 Ischemic cardiomyopathy (principal); Z98.61 Coronary angioplasty status; I11.0 Hypertensive heart disease with heart failure; I50.22 Chronic systolic (congestive) heart failure; I25.10 Atherosclerotic heart disease of native coronary artery without angina pectoris; E78.5 Hyperlipidemia, unspecified | CPT/HCPCS: 99213 ==

== ENCOUNTER 2024-03-06 08:36 | Emergency (ER) | payer MEDICARE, SELFPAY ==
[2024-03-06] VITALS (7 sets, daily range): BP systolic 110–126; BP diastolic 64–88; PULSE 54–61; RESP 16–18; TEMP 36.6; O2SAT 92–94; BMI 24.1
--- NOTE | 2024-03-06 08:40 | XR_ITS ---
WS: [id number] Portable AP upright chest, 03/06/2024 Clinical Data: dyspnea/cough Comparison: Portable chest, 03/13/2023 Findings: No nodules, masses or effusions are seen. The heart is normal. The pulmonary vascularity is not increased. No pneumonia or pneumothorax is seen. The aortic arch and descending thoracic aorta s how calcification and tortuosity. There are monitor leads on the chest wall. XR/XR chest 1V portable [id number] Impression: Atherosclerosis.
--- NOTE | 2024-03-06 08:43 | ECG_ITS ---
[facility] Test Date: 2024-03-06 Pat Name: Bob Barreto Department: Room: Gender: Male Unit Clerk: : 1940 Requested By: Dani Canada Order Number: [id number] Christopher MD: Loyd Garibay M.D. Measurements Intervals [place] Rate: 57 P: 47 [place]: 196 QRS: -28 QRSD: 94 T: 58 QT: 402 QTc: 392 Interpretive Statements SINUS BRADYCARDIA BORDERLINE LEFT AXIS DEVIATION [QRS AXIS < -20] NONSPECIFIC T-WAVE ABNORMALITY Compared to ECG 03/14/2023 00:10:53 T-wave abnormality now present Electronically Signed On 03-06-2024 11:28:34 CDT by Loyd Garibay M.D. https://[email or web address].HireArtmagee general hospitalChromalouis stokes [facility].[employer]/store/NU/[id number] f
--- NOTE | 2024-03-06 08:48 | ED_ITS ---
HPI - SOB/Dyspnea 2 General: Chief Complaint: Shortness of Breath/Dyspnea Stated Complaint: sob Time Seen by Provider: 03/06/24 08:39 History of Present Illness: HPI Narrative: 83-year-old male presents emergency room complaining of generally feeling weak. He arrived by private vehicle but had gone to an ambulance. They did an EKG systolic some stickers on his chest when he got here. He has a known history of coronary disease and previously had CA with stent placement. He was seen a couple of days ago by his commercial real estate lender was told his EKG was normal. He has a little bit of low-grade fever along with a nonproductive cough myalgias just generally not feeling well fatigue and malaise. Associated symptoms: Deny abdominal pain, chest pain or fever(s) Related Data Home Medications Medication Instructions Recorded Confirmed cyanocobalamin (vitamin B-12) 1,000 mcg PO DAILY 11/12/22 03/06/24 1,000 mcg capsule aspirin 81 mg tablet,delayed 243 mg PO DAILY 11/08/23 03/06/24 release (Adult Low Dose Aspirin) cholecalciferol (vitamin D3) 10 400 unit PO DAILY 11/08/23 03/06/24 mcg (400 unit) capsule alprazolam 0.25 mg tablet 0.25 mg PO BID PRN Anxiety 03/06/24 03/06/24 amoxicillin 875 mg-potassium 1 tab PO BID 03/06/24 03/06/24 clavulanate 125 mg tablet lisinopril 5 mg tablet 5 mg PO BID 03/06/24 03/06/24 prednisone 20 mg tablet 20 mg PO DAILY 03/06/24 03/06/24 Previous Rx's Medication Instructions Recorded nitroglycerin 0.4 mg sublingual 0.4 mg sublingual DIRECTED #25 02/28/23 tablet (Nitrostat) tabs rosuvastatin 5 mg tablet 5 mg PO DAILY #90 tabs 06/07/23 albuterol sulfate 90 mcg/actuation 2 inh inhalation Q4H PRN shortness 03/06/24 aerosol inhaler of breath or wheezing #18 grams Allergies Allergy/AdvReac Type Severity Reaction Status Date / Time No Known Allergies Allergy Verified 11/08/23 11:22 Review of Systems 2 Const: Denies: fever(s) or chills Card: Denies: chest pain Resp: Reports: dyspnea GI: Denies: abdominal pain : Denies: dysuria, urinary frequency or urinary urgency Musc: Denies: neck pain or back pain Skin/Breast: Denies: rash PFSH ED 2 PFSH: Medical History (Updated 03/06/24 @ 14:37 by Dani Lewis DO) CAD (coronary artery disease) Elevated PSA Bladder cancer Enlarged prostate Hyperlipidemia HTN (hypertension) Systolic heart failure Ischemic cardiomyopathy Surgical History S/P arterial stent S/P PTCA (percutaneous transluminal coronary angioplasty) Family History Father , at age 91 No problems noted. Mother , at age 91 No problems noted. 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 Physical Exam 2 Const: COMMON NORMALS: no acute distress GENERAL APPEARANCE: cooperative and comfortable ORIENTATION/CONSCIOUSNESS: Yes awake, Yes oriented to person, Yes oriented to place and Yes oriented to time HENMT: COMMON NORMALS: normocephalic, atraumatic and hearing grossly normal bilaterally HEAD & SCALP: normocephalic and atraumatic Resp: COMMON NORMALS: normal respiratory effort, No retractions, No use of accessory muscles and clear to auscultation bilaterally AUSCULTATION: clear to auscultation bilaterally Cardio: COMMON NORMALS: regular rate, regular rhythm and No murmurs present (Cardio) RATE: regular rate RHYTHM: regular rhythm GI: COMMON NORMALS: Soft to palpation and No hepatosplenomegaly present A USCULTATION: Yes normoactive bowel sounds PALPATION: Yes Soft to palpation, No Tenderness to palpation present (GI), No Guarding due to palpation present (GI) and Yes No hepatosplenomegaly present Extremity: COMMON NORMALS: normal to inspection, capillary refill normal, no clubbing, cyanosis or edema, no calf tenderness and no pedal edema Neuro: SENSORIUM/ORIENTATION: Yes oriented to person, Yes oriented to place and Yes oriented to time Skin: COMMON NORMALS: no rashes or lesions noted GENERAL SKIN EXAM: no rashes or lesions noted Course 2 Vital Signs: Vital signs: Vital Signs Temperature 97.8 F 03/06/24 08:41 Pulse Rate 61 03/06/24 13:48 Respiratory Rate 18 03/06/24 13:48 Blood Pressure 110/64 03/06/24 11:40 Pulse Oximetry 92 03/06/24 13:48 Oxygen Delivery Me thod Room Air 03/06/24 13:48 MDM - SOB/Dyspnea Medical Decision Making Cardiac enzymes are negative EKG did not show any acute changes. Patient is anxious to go home and also did a CTA of his chest that shows also negative really had chest pain per se he had more shortness of breath. He has cardiac workup he has been seen for in [place]. He has not had any hypoxia or further shortness of breath since arriving here. Will set him up for a outpatient stress test. Medical Records I reviewed the patient's medical records. Lab Data I reviewed the patient's lab results. 03/06/24 08:52 03/06/24 08:52 Labs/Radiology: Radiology Impressions Chest X-Ray 03/06/24 08:40 Impression: Atherosclerosis. Chest CTA 03/06/24 11:43 IMPRESSION: 1. No pulmonary embolism. 2. No pneumonia. 3. Mildly ectatic atheromatous thoracic aorta. Laboratory Results WBC 2.30 10^3/uL (3.29-11.43) L 03/06/24 08:52 RBC 4.27 10^6/uL (3.85-5.65) 03/06/24 08:52 Hgb 13.30 g/dL (11.27-16.99) 03/06/24 08:52 Hct 38.8 % (37-53) 03/06/24 08:52 MCV 90.9 fl (82-101) 03/06/24 08:52 MCH 31.1 pg (27-33) 03/06/24 08:52 MCHC 34.3 g/dL (30-55) 03/06/24 08:52 RDW 12.1 % (12.1-15.1) 03/06/24 08:52 Plt Count 88 10^3/cmm (157-399) L 03/06/24 08:52 MPV 10.1 fL (7.4-10.4) 03/06/24 08:52 Neut % (Auto) 59.1 % 03/06/24 08:52 Lymph % (Auto) 28.3 % 03/06/24 08:52 [place] % (Auto) 11.7 % 03/06/24 08:52 Eos % (Auto) 0.0 % 03/06/24 08:52 Baso % (Auto) 0.0 % 03/06/24 08:52 Neut # (Auto) 1.36 10^3/uL (1.8-7.7) L 03/06/24 08:52 Lymph # (Auto) 0.7 10^3/uL (0.8-4.8) L 03/06/24 08:52 [place] # (Auto) 0.3 10^3/uL (0.2-0.9) 03/06/24 08:52 Eos # (Auto) 0.0 10^3/uL (0.0-0.8) 03/06/24 08:52 Baso # (Auto) 0.0 10^3/uL (0.0-0.1) 03/06/24 08:52 Nucleated RBC % (auto) 0 % 03/06/24 08:52 Nucleated RBCs # 0.0 /100WBC 03/06/24 08:52 Sodium 134 mmol/L (136-145) L 03/06/24 08:52 Potassium 3.9 mmol/L (3.5-5.1) 03/06/24 08:52 Chloride 96 mmol/L (98-107) L 03/06/24 08:52 Carbon Dioxide 24 mmol/L (22-29) 03/06/24 08:52 Anion Gap 16.9 (5-19) 03/06/24 08:52 BUN 22 mg/dL (8-23) 03/06/24 08:52 Creatinine 1.2 mg/dL (0.7-1.2) 03/06/24 08:52 GFR Calculation Not Reportable 03/06/24 08:52 Glucose 142 mg/dL (65-115) H 03/06/24 08:52 Calculated Osmolality 284 mOsm/kg (285-295) L 03/06/24 08:52 Calcium 8.3 mg/dL (8.5-10.5) L 03/06/24 08:52 Total Bilirubin 0.3 mg/dL (0.15-1.2) 03/06/24 08:52 AST 39 U/L (0-40) 03/06/24 08:52 ALT 32 U/L (0-41) 03/06/24 08:52 Alkaline Phosphatase 70 U/L (40-130) 03/06/24 08:52 Troponin T Baseline 18 ng/L (0-15) H 03/06/24 08:52 Troponin T 120 Minute 18.12 ng/L (0-15) H 03/06/24 10:39 Delta Troponin T 0.12 ABS# (0-10) 03/06/24 10:39 NT-Pro-B Natriuret Pep 114 pg/mL (0-450) 03/06/24 08:52 Total Protein 6.4 g/dL (6.6-8.7) L 03/06/24 08:52 Albumin 4.2 g/dL (3.5-5.2) 03/06/24 08:52 Globulin 2.2 g/dL (1.3-4.6) 03/06/24 08:52 All radiology interpretation(s) finalized by discharge EKG Data EKG 1: Interpretation: March 06, 2024 843 Sinus bradycardia with left axis deviation rate of 57 [place] interval [address] change. No significant change from 03/14/2023 EKG 2: Interpretation: EKG done at 03/06/2024 1053 EKG shows sinus bradycardia. Mild Derek axis deviation. Rate of 57 [place] interval of 199 QT is normal no acute ST segment changes noted Discharge Plan Discharge Patient Disposition: Home Clinical Impression: Dyspnea Condition: Stable Prescriptions: New albuterol sulfate 90 mcg/actuation HFA aerosol inhaler 2 inh INHALATION Q4H PRN (Reason: shortness of breath or wheezing) Qty: 18 0RF No Action cholecalciferol (vitamin D3) 10 mcg (400 unit) capsule 400 unit PO DAILY aspirin [Adult Low Dose Aspirin] 81 mg tablet,delayed release (DR/EC) 243 mg PO DAILY Rx Instructions: (3 tablets) cyanocobalamin (vitamin B-12) 1,000 mcg capsule 1,000 mcg PO DAILY nitroglycerin [Nitrostat] 0.4 mg tablet, sublingual 0.4 mg SUBLINGUAL DIRECTED Qty: 25 6RF rosuvastatin 5 mg tablet 5 mg PO DAILY Qty: 90 3RF prednisone 20 mg tablet 20 mg PO DAILY alprazolam 0.25 mg tablet 0.25 mg PO BID PRN (Reason: Anxiety) amoxicillin-pot clavulanate 875-125 mg tablet 1 tab PO BID lisinopril 5 mg tablet 5 mg PO BID Discharge Orders: Discharge ED (Routine); Ordered 03/06/24 Ordered By: Dani Lewis Referrals: Bryn Sandoval, [Primary Care Provider] - Discharge Diet: Usual diet Discharge Activity: Increase activity as tolerated Patient Instructions: Opioid Safety, Pain Management Activity Restrictions/Additional Instructions: Thank you for choosing [facility] for your healthcare needs today. It is very important that you follow up as instructed or that you return to the Emergency Department should you have concerns or if your condition changes or worsens in any way. You are seen in the emergency room and brief episode of shortness of breath. Examination of your heart and lungs did not show any abnormalities. There is no sign of acute coronary syndrome CTA of your chest did not show any pulmonary embolism. No signs of pneumonia or pneumothorax. Will set you up for an outpatient Lexiscan sestamibi stress test. You can use albuterol as needed for further episodes of shortness of breath or symptoms otherwise change or worsen return to the emergency Coding Level of Care Code ED Precision Assembler Bench for Margarita Vázquez
[2024-03-06 09:01] LABS: Hematocrit 38.8 % (37-53); Lymphocytes # 0.7 10^3/uL (0.8-4.8); Lymphocytes % 28.3 %; Mean Corpuscular HGB Conc 34.3 g/dL (30-55); Mean Corpuscular Hemoglobin 31.1 pg (27-33); Mean Corpuscular Volume 90.9 fl (82-101); Mean Platelet Volume 10.1 fL (7.4-10.4); Monocytes # 0.3 10^3/uL (0.2-0.9); Monocytes % 11.7 %; Neutrophils # 1.36 10^3/uL (1.8-7.7); Neutrophils % 59.1 %; Nucleated Red Blood Cells % 0 %; Platelet Count 88 10^3/cmm (157-399); Red Blood Count 4.27 10^6/uL (3.85-5.65); Red Cell Distribution Width 12.1 % (12.1-15.1)
[2024-03-06 09:17] LABS: Troponin(5th) Baseline 18 ng/L (0-15)
[2024-03-06 09:18] LABS: Alanine Aminotransferase 32 U/L (0-41); Albumin Level 4.2 g/dL (3.5-5.2); Alkaline Phosphatase 70 U/L (40-130); Aspartate Amino Transferase 39 U/L (0-40); Chloride 96 mmol/L (98-107); Glucose 142 mg/dL (65-115); Potassium 3.9 mmol/L (3.5-5.1); Sodium 134 mmol/L (136-145)
[2024-03-06 09:54] LABS: Anion Gap 16.9 (5-19); Blood Urea Nitrogen 22 mg/dL (8-23); Carbon Dioxide 24 mmol/L (22-29); Creatinine Clr Calc Pharmacy 56.9719; Globulin 2.2 g/dL (1.3-4.6); Total Bilirubin 0.3 mg/dL (0.15-1.2)
[2024-03-06 10:00] LABS: Calcium 8.3 mg/dL (8.5-10.5); Osmolality Calculated 284 mOsm/kg (285-295); Total Protein 6.4 g/dL (6.6-8.7)
--- NOTE | 2024-03-06 10:53 | ECG_ITS ---
[facility] Test Date: 2024-03-06 Pat Name: Bob Barreto Department: Room: Gender: Male Occupational Health And Safety Manager: : 1940 Requested By: Dani Canada Order Number: [id number] Christopher MD: Loyd Garibay M.D. Measurements Intervals [place] Rate: 57 P: 46 [place]: 199 QRS: -24 QRSD: 93 T: 48 QT: 405 QTc: 395 Interpretive Statements SINUS BRADYCARDIA BORDERLINE LEFT AXIS DEVIATION [QRS AXIS < -20] Compared to ECG 03/06/2024 08:43:41 T-wave abnormality no longer present Electronically Signed On 03-06-2024 11:29:27 CDT by Loyd Garibay M.D. [email or web address].[employer]/store/[id number]
[2024-03-06 11:03] LABS: Troponin 5 2HR 18.12 ng/L (0-15); Troponin 5 2HR Delta 0.12 ABS# (0-10)
--- NOTE | 2024-03-06 11:43 | CT_ITS ---
WS: [id number] CT CHEST ANGIOGRAPHY WITH REFORMATS HISTORY: Dyspnea TECHNIQUE: Contiguous axial images are obtained through the chest during arterial injection of intrav enous contrast. Images are reconstructed to evaluate the pulmonary arteries. MIP imaging also reviewe d. All CT scans at [facility] use at least one of these dose optimization techniques: automat ed exposure control; mA and/or kV adjustment per patient size (includes targeted exams where dose is matched to clinical indication); or iterative reconstruction. CONTRAST: Omnipaque 350; 100 mL IV. DLP: 141.25 mGy.cm COMPARISON: 07/08/2015 With good opacification of the pulmonary arteries. No filling defects or pulmonary emboli are identif ied. Mildly ectatic atherosclerotic thoracic aorta. Moderate LEFT heart enlargement. No RIGHT heart s train. No pericardial or pleural effusions. Mild volume loss in the lower lung perez and dependent changes. No pneumonia. No pulmonary mass or n odule. No adenopathy. Small hiatal hernia. Low-attenuation mass in the RIGHT lobe of the liver has been previously described as a hemangioma. Vi sualized gallbladder is normal. No adrenal mass. CT/CT angio chest PE protcl [id number] IMPRESSION: 1. No pulmonary embolism. 2. No pneumonia. 3. Mildly ectatic atheromatous thoracic aorta.
[2024-03-06 12:16] LABS: NT Pro B Type Natriuretic Pept 114 pg/mL (0-450)
[2024-03-06] MEDS: iohexol 350 mg/mL 500 mL Btl (per mL) IV (13:19)
== END 2024-03-06 14:52 | disposition home or self-care (01) ==
PROVIDERS: Emergency Provider Family Medicine; PCP Internal Medicine
DX: R06.00 Dyspnea, unspecified (principal); R00.1 Bradycardia, unspecified; Z79.82 Long term (current) use of aspirin; I25.10 Atherosclerotic heart disease of native coronary artery without angina pectoris; Z85.51 Personal history of malignant neoplasm of bladder; E78.5 Hyperlipidemia, unspecified; I11.0 Hypertensive heart disease with heart failure; I50.20 Unspecified systolic (congestive) heart failure; I25.5 Ischemic cardiomyopathy
CPT/HCPCS: 36415; 71045; 71275; 80053; 83880; 84484; 85025; 93005; 99285; Q9967

== ENCOUNTER → 2024-05-12 09:56 | Outpatient (BNVA) | payer MEDICARE, SELFPAY | PROVIDERS: PCP Internal Medicine; Visit Provider Nurse Practitioner Family | DX: I25.5 Ischemic cardiomyopathy (principal); I25.10 Atherosclerotic heart disease of native coronary artery without angina pectoris; I11.0 Hypertensive heart disease with heart failure; I50.20 Unspecified systolic (congestive) heart failure | CPT/HCPCS: 99214 ==

== ENCOUNTER 2024-06-02 19:55 | Emergency (ER) | payer MEDICARE, SELFPAY ==
[2024-06-02 19:58] VITALS: BP 154/90; PULSE 109; RESP 18; TEMP 36.8; O2SAT 98; BMI 24.3
--- NOTE | 2024-06-02 20:18 | XRR_ITS ---
PROCEDURE INFORMATION: Exam: XR Chest Exam date and time: 06/02/2024 8:22 PM Age: 83 years old Clinical indication: Cough and fever; Additional info: Cough fever TECHNIQUE: Imaging protocol: Radiologic exam of the chest. Views: 1 view. COMPARISON: CT angio chest PE protcl [id number] 03/06/2024 12:58 PM FINDINGS: Lungs: Unremarkable. No consolidation. Pleural spaces: Unremarkable. No pleural effusion. No pneumothorax. Heart/Mediastinum: Unremarkable. No cardiomegaly. Bones/joints: Unremarkable. XR/XR chest 1V portable [id number] IMPRESSION: No acute findings.
[2024-06-02 20:57] LABS: Basophils % 0.3 %; Eosinophils # 0.1 10^3/uL (0.0-0.8); Hematocrit 38.9 % (37-53); Lymphocytes # 0.8 10^3/uL (0.8-4.8); Lymphocytes % 8.3 %; Mean Corpuscular HGB Conc 33.4 g/dL (30-55); Mean Corpuscular Hemoglobin 31.2 pg (27-33); Mean Corpuscular Volume 93.3 fl (82-101); Mean Platelet Volume 9.9 fL (7.4-10.4); Monocytes # 1.1 10^3/uL (0.2-0.9); Neutrophils # 7.94 10^3/uL (1.8-7.7); Neutrophils % 79.1 %; Nucleated Red Blood Cells % 0 %; Platelet Count 155 10^3/cmm (157-399); Red Blood Count 4.17 10^6/uL (3.85-5.65); Red Cell Distribution Width 12.9 % (12.1-15.1); White Blood Count 10.03 10^3/uL (3.29-11.43)
[2024-06-02 21:13] LABS: Lactic Sepsis W/Reflex 0.9 mmol/L (0.5-2.2)
[2024-06-02 21:14] LABS: Alanine Aminotransferase 14 U/L (0-41); Albumin Level 4.5 g/dL (3.5-5.2); Alkaline Phosphatase 68 U/L (40-130); Anion Gap 14.3 (5-19); Aspartate Amino Transferase 20 U/L (0-40); Blood Urea Nitrogen 19 mg/dL (8-23); Calcium 9.8 mg/dL (8.5-10.5); Carbon Dioxide 28 mmol/L (22-29); Chloride 101 mmol/L (98-107); Creatinine Clr Calc Pharmacy 62.4217; Globulin 3.1 g/dL (1.3-4.6); Glucose 130 mg/dL (65-115); Osmolality Calculated 292 mOsm/kg (285-295); Potassium 4.3 mmol/L (3.5-5.1); Sodium 139 mmol/L (136-145); Total Bilirubin 0.5 mg/dL (0.15-1.2); Total Protein 7.6 g/dL (6.6-8.7)
--- NOTE | 2024-06-02 21:14 | ECG_ITS ---
[facility]: [facility]24-[facility]02 Pat Name: Bob Barreto Department: Room: Gender: Male Faith Healer: : 1940 Requested By: Kevin Segura Order Number: [id number] Christopher MD: KRISTY SHELTON Measurements Intervals [place] Rate: 104 P: 53 [place]: 148 QRS: -3 QRSD: 88 T: 77 QT: 323 QTc: 426 Interpretive Statements SINUS TACHYCARDIA LOW QRS VOLTAGE IN PRECORDIAL LEADS [QRS DEFLECTION < 1.0 mV IN CHEST LEADS] ABNORMAL RHYTHM ECG Compared to ECG 03/06/2024 10:53:30 Low QRS voltage now present Sinus bradycardia no longer present Electronically Signed On 06-03-2024 17:22:41 TIMBER FRAMER by KRISTY SHELTON [id number]
--- NOTE | 2024-06-02 21:40 | ED_ITS ---
HPI - COVID 2 General: Chief Complaint: COVID symptoms Stated Complaint: Fever, chills, weakness, coughing Time Seen by Provider: 06/02/24 21:17 Source: patient Mode of arrival: ambulatory Limitations: no limitations History of Present Illness: Patient is an 83-year-old male present to the emergency department complaining of COVID-like symptoms for the past week. States he took a home COVID test prior to presenting which was positive. He is reporting fatigue, weakness, fevers, chills, and a productive cough, though states he has been coughing for a month. States that with a cough in the past he was prescribed antibiotics and this did improve it. No sick contact exposure to his knowledge. MD complaint: known COVID positive and has COVID symptoms Prior covid testing: yes, results known Prior testing date: 06/02/24 COVID 19 common symptoms: positive fever(s), chills, productive cough and fatigue; negative dyspnea, headache(s), throat pain, nausea, vomiting or diarrhea COVID 19 other sytmptoms: negative chest pain Onset (ago): week(s) COVID Results: 2 Coronavirus (PCR) Positive (Negative) A 06/02/24 21:31 Related Data Home Medications Medication Instructions Recorded Confirmed cyanocobalamin (vitamin B-12) 1,000 mcg PO DAILY 11/12/22 05/12/24 1,000 mcg capsule aspirin 81 mg tablet,delayed 243 mg PO DAILY 11/08/23 05/12/24 release (Adult Low Dose Aspirin) cholecalciferol (vitamin D3) 10 400 unit PO DAILY 11/08/23 05/12/24 mcg (400 unit) capsule alprazolam 0.25 mg tablet 0.25 mg PO BID PRN Anxiety 03/06/24 05/12/24 amoxicillin 875 mg-potassium 1 tab PO BID 03/06/24 05/12/24 clavulanate 125 mg tablet prednisone 20 mg tablet 20 mg PO DAILY 03/06/24 05/12/24 clopidogrel 75 mg tablet 75 mg PO DAILY 05/12/24 05/12/24 lisinopril 5 mg tablet 2.5 mg PO BID 05/12/24 05/12/24 Previous Rx's Medication Instructions Recorded nitroglycerin 0.4 mg sublingual 0.4 mg sublingual DIRECTED #25 02/28/23 tablet (Nitrostat) tabs rosuvastatin 5 mg tablet 5 mg PO DAILY #90 tabs 06/07/23 albuterol sulfate 90 mcg/actuation 2 inh inhalation Q4H PRN shortness 03/06/24 aerosol inhaler of breath or wheezing #18 grams azithromycin 500 mg tablet 500 mg PO DAILY 5 days #5 tabs 06/02/24 Allergies Allergy/AdvReac Type Severity Reaction Status Date / Time No Known Allergies Allergy Verified 05/12/24 10:00 Review of Systems 2 General: Reports: 10 or more systems reviewed and unremarkable except in HPI and below Const: Reports: fever(s), chills, fatigue and malaise Eyes: Denies: change in vision ENMT: Denies: throat pain, ear or mastoid pain or nasal discharge Card: Denies: chest pain, palpitations, swelling of feet/ankles or lightheadedness Resp: Reports: productive cough; Denies: dyspnea or wheezing GI: Denies: abdominal pain, nausea, vomiting, diarrhea or constipation : Denies: flank pain, difficulty urinating, dysuria or urinary frequency Musc: Denies: neck pain, back pain or joint pain Skin/Breast: Denies: rash Neuro: Denies: headache(s), numbness in extremities or weakness in extremities PFSH ED 2 PFSH: Medical History CAD (coronary artery disease) Elevated PSA Bladder cancer Enlarged prostate Hyperlipidemia HTN (hypertension) Systolic heart failure Ischemic cardiomyopathy Surgical History S/P arterial stent S/P PTCA (percutaneous transluminal coronary angioplasty) Family History Father , at age 91 No problems noted. Mother , at age 91 No problems noted. 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 Physical Exam 2 Const: COMMON NORMALS: no acute distress and no limitations GENERAL APPEARANCE: cooperative, comfortable and well developed O RIENTATION/CONSCIOUSNESS: Yes awake HENMT: COMMON NORMALS: normocephalic, atraumatic, hearing grossly normal bilaterally, Normal external nose present, moist oral mucous membranes and oropharynx normal HEAD & SCALP: normocephalic and atraumatic NOSE: Normal external nose present Eye: COMMON NORMALS: Equal, round and reactive pupils present, EOMs intact bilaterally and conjunctivae normal CONJUNCTIVA: Yes conjunctivae normal P UPIL: Yes Equal, round and reactive pupils present Neck/C-Spine: COMMON NORMALS: full ROM, supple and no JVD Resp: COMMON NORMALS: normal respiratory effort, No retractions, No use of accessory muscles and clear to auscultation bilaterally AUSCULTATION: clear to auscultation bilaterally Cardio: COMMON NORMALS: no JVD, regular rate, regular rhythm, No clicks present (Cardio), No murmurs present (Cardio) and No rub (Cardio) RATE: r egular rate RHYTHM: regular rhythm GI: COMMON NORMALS: Normal to inspection, nondistended, normoactive bowel sounds present, Soft to palpation and non-tender AUSCULTATION: Yes normoactive bowel sounds PALPATION: Yes Soft to palpation RECTAL EXAM: Yes deferred Extremity: COMMON NORMALS: normal to inspection, full ROM and capillary refill normal Psych: COMMON NORMALS: mental status grossly normal and Normal thought process present THOUGHT PROCESS: Normal thought process present Skin: COMMON NORMALS: no rashes or lesions noted GENERAL SKIN EXAM: no rashes or lesions noted Course 2 Vital Signs: Vital signs: Vital Signs Temperature 98.2 F 06/02/24 19:58 Pulse Rate 91 06/02/24 22:48 Respiratory Rate 18 06/02/24 19:58 Blood Pressure 131/63 06/02/24 22:48 Pulse Oximetry 94 06/02/24 22:48 Oxygen Delivery Me thod Room Air 06/02/24 21:45 MDM - COVID Medical Decision Making Patient tested positive with home COVID test earlier, is also positive here in the emergency department. His lab work was normal, x-ray normal, EKG normal. Was concerned of the symptoms, he had a lot of questions asked in regards to COVID and did ask if we could prescribe him Paxlovid here. Told him he needs to follow-up with primary care in regards to any questions or with his COVID, he did have reports of multiple weeks of a productive cough, and this could be a coinfection with an atypical respiratory bronchitis, states that he had antibiotics in the past and has helped this so we will prescribe short course of azithromycin at this time. Vitals have been stable throughout ED course, will be discharged home at this time. Lab Data 06/02/24 20:49 06/02/24 20:49 Radiology Impressions Chest X-Ray 06/02/24 20:18 IMPRESSION: No acute findings. Laboratory Results WBC 10.03 10^3/uL (3.29-11.43) 06/02/24 20:49 RBC 4.17 10^6/uL (3.85-5.65) 06/02/24 20:49 Hgb 13.00 g/dL (11.27-16.99) 06/02/24 20:49 Hct 38.9 % (37-53) 06/02/24 20:49 MCV 93.3 fl (82-101) 06/02/24 20:49 MCH 31.2 pg (27-33) 06/02/24 20:49 MCHC 33.4 g/dL (30-55) 06/02/24 20:49 RDW 12.9 % (12.1-15.1) 06/02/24 20:49 Plt Count 155 10^3/cmm (157-399) L 06/02/24 20:49 MPV 9.9 fL (7.4-10.4) 06/02/24 20:49 Neut % (Auto) 79.1 % 06/02/24 20:49 Lymph % (Auto) 8.3 % 06/02/24 20:49 Frederick % (Auto) 11.0 % 06/02/24 20:49 Eos % (Auto) 1.0 % 06/02/24 20:49 Baso % (Auto) 0.3 % 06/02/24 20:49 Neut # (Auto) 7.94 10^3/uL (1.8-7.7) H 06/02/24 20:49 Lymph # (Auto) 0.8 10^3/uL (0.8-4.8) 06/02/24 20:49 Frederick # (Auto) 1.1 10^3/uL (0.2-0.9) H 06/02/24 20:49 Eos # (Auto) 0.1 10^3/uL (0.0-0.8) 06/02/24 20:49 Baso # (Auto) 0.0 10^3/uL (0.0-0.1) 06/02/24 20:49 Nucleated RBC % (auto) 0 % 06/02/24 20:49 Nucleated RBCs # 0.0 /100WBC 06/02/24 20:49 Sodium 139 mmol/L (136-145) 06/02/24 20:49 Potassium 4.3 mmol/L (3.5-5.1) 06/02/24 20:49 Chloride 101 mmol/L (98-107) 06/02/24 20:49 Carbon Dioxide 28 mmol/L (22-29) 06/02/24 20:49 Anion Gap 14.3 (5-19) 06/02/24 20:49 BUN 19 mg/dL (8-23) 06/02/24 20:49 Creatinine 1.1 mg/dL (0.7-1.2) 06/02/24 20:49 GFR Calculation Not Reportable 06/02/24 20:49 Glucose 130 mg/dL (65-115) H 06/02/24 20:49 Calculated Osmolality 292 mOsm/kg (285-295) 06/02/24 20:49 Lactic Acid 0.9 mmol/L (0.5-2.2) 06/02/24 20:49 Calcium 9.8 mg/dL (8.5-10.5) 06/02/24 20:49 Total Bilirubin 0.5 mg/dL (0.15-1.2) 06/02/24 20:49 AST 20 U/L (0-40) 06/02/24 20:49 ALT 14 U/L (0-41) 06/02/24 20:49 Alkaline Phosphatase 68 U/L (40-130) 06/02/24 20:49 Total Protein 7.6 g/dL (6.6-8.7) 06/02/24 20:49 Albumin 4.5 g/dL (3.5-5.2) 06/02/24 20:49 Globulin 3.1 g/dL (1.3-4.6) 06/02/24 20:49 Coronavirus (PCR) Positive (Negative) A 06/02/24 21:31 Influenza A (PCR) Negative (Negative) 06/02/24 21:31 Influenza Type B (PCR) Negative (Negative) 06/02/24 21:31 RSV (PCR) Negative (Negative) 06/02/24 21:31 2 Coronavirus (PCR) Positive (Negative) A 06/02/24 21:31 All radiology interpretation(s) finalized by discharge Discharge Plan Discharge Patient Disposition: Home Clinical Impression: COVID-19 Condition: Stable Prescriptions: New azithromycin 500 mg tablet 500 mg PO DAILY 5 Days Qty: 5 0RF No Action cholecalciferol (vitamin D3) 10 mcg (400 unit) capsule 400 unit PO DAILY aspirin [Adult Low Dose Aspirin] 81 mg tablet,delayed release (DR/EC) 243 mg PO DAILY Rx Instructions: (3 tablets) cyanocobalamin (vitamin B-12) 1,000 mcg capsule 1,000 mcg PO DAILY clopidogrel 75 mg tablet 75 mg PO DAILY nitroglycerin [Nitrostat] 0.4 mg tablet, sublingual 0.4 mg SUBLINGUAL DIRECTED Qty: 25 6RF rosuvastatin 5 mg tablet 5 mg PO DAILY Qty: 90 3RF prednisone 20 mg tablet 20 mg PO DAILY alprazolam 0.25 mg tablet 0.25 mg PO BID PRN (Reason: Anxiety) amoxicillin-pot clavulanate 875-125 mg tablet 1 tab PO BID albuterol sulfate 90 mcg/actuation HFA aerosol inhaler 2 inh INHALATION Q4H PRN (Reason: shortness of breath or wheezing) Qty: 18 0RF lisinopril 5 mg tablet 2.5 mg PO BID Discharge Orders: Discharge ED (Routine); Ordered 06/02/24 Ordered By: Haroldo Chatman Referrals: Bryn Sandoval DO [Primary Care Provider] - Patient Instructions: COVID-19 (Coronavirus Disease 2019) (ED) Activity Restrictions/Additional Instructions: Tylenol or ibuprofen for any pain or fevers. Drink plenty of fluids. Take azithromycin for your productive cough, closely follow-up with your primary care provider and house mover helper. Return with any new or worsening. Contagion precautions. Coding Level of Care Code ED Retirement Assistant for Margarita Vázquez
[2024-06-02 21:45] VITALS: O2SAT 94
[2024-06-02 22:16] VITALS: BP 125/75; PULSE 94; O2SAT 91
[2024-06-02 22:22] LABS: Influenza A NEGATIVE (Negative); Influenza B NEGATIVE (Negative); Respiratory Syncytial Virus Ce NEGATIVE (Negative)
[2024-06-02 22:30] VITALS: BP 131/63; PULSE 91; O2SAT 94
[2024-06-02 22:35] LABS: Covid PCR Positive (Negative)
[2024-06-02 22:48] VITALS: BP 131/63; PULSE 91; O2SAT 94
== END 2024-06-02 22:40 | disposition home or self-care (01) ==
PROVIDERS: Emergency Medicine; Emergency Provider Physician Assistant; PCP Internal Medicine
DX: U07.1 COVID-19 (principal); Z11.52 Encounter for screening for COVID-19; Z79.82 Long term (current) use of aspirin; I25.10 Atherosclerotic heart disease of native coronary artery without angina pectoris; C67.9 Malignant neoplasm of bladder, unspecified; E78.5 Hyperlipidemia, unspecified; I11.0 Hypertensive heart disease with heart failure; I50.20 Unspecified systolic (congestive) heart failure; Z95.5 Presence of coronary angioplasty implant and graft
CPT/HCPCS: 0241U; 36415; 71045; 80053; 83605; 85025; 93005; 99285

== ENCOUNTER → 2024-06-24 16:21 | Outpatient (BNVA) | payer MEDICARE, SELFPAY | PROVIDERS: PCP Internal Medicine; Visit Provider Internal Medicine Cardiovascular Disease | DX: I25.5 Ischemic cardiomyopathy (principal); I11.0 Hypertensive heart disease with heart failure; I50.22 Chronic systolic (congestive) heart failure; I25.10 Atherosclerotic heart disease of native coronary artery without angina pectoris | CPT/HCPCS: 99213 ==

== ENCOUNTER 2025-01-16 16:07 | Emergency (ER) | payer MEDICARE, SELFPAY ==
--- OUTSIDE RECORDS SUMMARY | 2025-01-16 16:16 | XMS_ITS | Clinical Summary ---
Author Organization [facility] de Address [address] [place] [address] Phone Care Team Providers Care Alarm Mechanic Name Role Phone LozanoJeramie hammonds DO Primary Care Provider Allergies No known active allergies Medications aspirin (CHELSI CHEWABLE) 81 mg Tablet, Chewable Take 81 mg by mouth 2 times daily . Active lisinopril (PRINIVIL) 2.5 mg tablet Take 0.5 Tablet (1.25 mg) by mouth daily. 10 Tablet 0 07/09/2015 Active ALPRAZolam (XANAX) 0.25 mg tablet 05/14/2018 Active rosuvastatin (CRESTOR) 5 mg tablet 05/28/2018 Active Active Problems Problem Noted Date Diagnosed Date Precordial pain 07/08/2015 Atherosclerosis of [place] coronary artery of [place] sherri heart 07/08/2015 Overview (07/08/2015): PCI to LAD. Family History Medical History Relation Name Comments Colon Cancer Neg Hx Social History Tobacco Use Types Packs/Day Years Used Date Smoking Tobacco: Never Smokeless Tobacco: Never Alcohol Use Standard Drinks/Week Comments No 0 (1 standard drink = 0.6 oz pur e alcohol) Sex and Gender Information Value Date Recorded Sex Assigned at Not on file Legal Sex Male 6:47 AM FILTER BED PLACER Gender Identity Not on file Sexual Orientation Not on file Last Filed Vital Signs Vital Sign Reading Time Taken Comments Blood Pressure 113/78 06/27/2018 8:54 AM FILTER BED PLACER Pulse 74 06/27/2018 8:54 AM FILTER BED PLACER Temperature 36.9 C (98.4 F) 06/27/2018 7:19 AM FILTER BED PLACER Respiratory Rate 18 06/27/2018 8:49 AM FILTER BED PLACER Oxygen Saturation 97% 06/27/2018 8:54 AM FILTER BED PLACER Inhaled Oxygen Concentration - - Weight 86.2 kg (190 lb) 06/25/2018 9:52 AM FILTER BED PLACER Height 188 cm (6' 2 ) 06/25/2018 9:52 AM FILTER BED PLACER Body Mass Index 24.39 06/25/2018 9:52 AM FILTER BED PLACER Plan of Treatment Health Maintenance Due Date Last Done Comments DTAP/TDAP/TD VACCINES (1 - Tdap) 1961 PNEUMOCOCCAL VACCINE 50+ YEA RS (1 of 1 - PCV) 1992 ZOSTER VACCINE (1 of 2) 1992 RSV VACCINE (60+ or ) (1 - 1-dose 75+ series) 2017 COLORECTAL SCREENING 06/27/2023 06/27/2018, 06/27/2018, 03/31/2012, Additional history exists INFLUENZA VACCINE (#1) 2025 Procedures Procedure Name Priority Date/Time Associated Diagnosis Comments COLONOSCOPY REPORT 06/27/2018 8: 33 AM FILTER BED PLACER from Last 3 Months or Most Recently Relevant to Health Maintenance Results * COLONOSCOPY REPORT (06/27/2018 8:33 AM FILTER BED PLACER) Narrative Procedure Note Gm Isbell MD - 06/27/2018 8:33 AM CST [facility] GI Patient Name: Bob Barreto Procedure Date: 06/27/2018 Date of : 1940 Admit Type: Outpatient Age: 77 Attending MD: Gm Isbell , Procedure: Colonoscopy Indications: Screening for colorectal malignant neoplasm, High risk colon cancer surveillance: Personal history of colonic polyps Providers: Rachel Hebert, Chelsie Bond Referring MD: Jeramie Lozano, Medicines: Monitored Anesthesia Care Complications: No immediate complications. Procedure: Pre-Anesthesia Assessment: - [place] Protocol: - Pre-procedure Verification: Prior to the procedure, the patient's identity was verified by full name and date of . The patient's identity was verified on all pertinent medical records, including History and Physical and pre-anesthesia assessment. Also prior to the procedure, a History and Physical was performed, and patient medications, allergies and sensitivities were reviewed. The patient's tolerance of previous anesthesia was reviewed. The risks and benefits of the procedure and the sedation options and risks were discussed with the patient. All questions were answered and informed consent was obtained. - Time-Out: Prior to the start of the procedure, the patient's identification, proposed procedure, accurate signed consent, correctly labeled images and records, and need for prophylactic antibiotics were verified by the physician and the nurse in the endoscopy suite. - Prior to the procedure, a History and Physical was performed, and patient medications, allergies and sensitivities were reviewed. The patient's tolerance of previous anesthesia was reviewed. - The risks and benefits of the procedure and the sedation options and risks were discussed with the patient. All questions were answered and informed consent was obtained. After I obtained informed consent, the scope was passed under direct vision. Throughout the procedure, the patient's blood pressure, pulse, and oxygen saturations were monitored continuously. The Colonoscope was introduced through the anus and advanced to the cecum, identified by appendiceal orifice and ileocecal valve. The colonoscopy was performed with ease. The patient tolerated the procedure well. The quality of the bowel preparation was adequate. The ileocecal valve, appendiceal orifice, and rectum were photographed. Estimated Blood Loss: Estimated blood loss was minimal. Findings: The perianal and digital rectal examinations were normal. Pertinent negatives include normal sphincter tone, no palpable rectal lesions and no anal lesion or abnormality was detected. Internal hemorrhoids were found during retroflexion. The hemorrhoids were small. A 7 mm polyp was found in the ascending colon. The polyp was sessile. The polyp was removed with a cold snare. Resection and retrieval were complete. Estimated blood loss was minimal. Verification of patient identification for the specimen was done by the physician, nurse and certified master safe technician using the patient's name and date. Impression: - Internal hemorrhoids. - One 7 mm polyp in the ascending colon, removed with a cold snare. Resected and retrieved. Recommendation: - Await pathology results. - Resume previous diet. - Patient has a contact number available for emergencies. The signs and symptoms of potential delayed complications were discussed with the patient. Return to normal activities tomorrow. Written discharge instructions were provided to the patient. - Continue present medications. - Repeat colonoscopy is recommended for surveillance. The colonoscopy date will be determined after pathology results from today's exam become available for review. Gm Isbell, 06/27/2018 8:33:24 AM Number of Addenda: 0 Note Initiated On: 06/27/2018 8:10 AM Scope Withdrawal Time 0 hours 6 minutes 26 seconds Scope In: 8:18:52 AM Scope Out: 8:30:48 AM [address] [place], [place] Gm Isbell MD GI PROCEDURE ORDERABL ES Final Result from Last 3 Months or Most Recently Relevant to Health Maintenance [place] [address] [place] [address] Advance Directives For more information, please contact: [phone] * Full Code (Latest Code Status on File) Date Activated Date Inactivated Comments 06/27/2018 7:25 AM 06/27/2018 11:08 AM * Full Code Date Activated Date Inactivated Comments 07/08/2015 6:59 PM 07/09/2015 7:34 PM * Full Code Date Activated Date Inactivated Comments 03/31/2012 9:23 AM 03/31/2012 12:46 PM Care Teams Alarm Mechanic Relationship Specialty Start Date End Date Jeramie Lozano DO [address] [place] [address] PCP - General Family Practice 02/21/12
--- OUTSIDE RECORDS SUMMARY | 2025-01-16 16:16 | XMS_ITS | Clinical Summary ---
Author Organization [facility] Address [address] Attn: Epic Prelude ADT LYDIA JONES [address] Care Team Providers Care Plant Specialist Name Role Phone Jeramie Lozano DO Primary Care Provider Allergies No known active allergies Medications ALPRAZolam (XANAX) 0.25 mg tablet 05/14/2018 Active rosuvastatin (CRESTOR) 5 mg tablet 05/28/2018 Active lisinopriL (PRINIVIL) 2.5 mg tablet Take 0.5 Tablet (1.25 mg) by mouth daily. 10 Tablet 0 07/09/2015 Active aspirin (CHELSI CHEWABLE) 81 mg Tablet, Chewable Take 81 mg by mouth 2 times daily . 07/08/2015 Active Active Problems Problem Noted Date Diagnosed Date Atherosclerosis of [place] coronary artery of [place] sherri heart 07/08/2015 Overview (11/10/2020): PCI to LAD. Precordial pain 07/08/2015 Family History Medical History Relation Name Comments Colon Cancer Neg Hx Social History Tobacco Use Types Packs/Day Years Used Date Smoking Tobacco: Never Smokeless Tobacco: Never Alcohol Use Standard Drinks/Week Comments No 0 (1 standard drink = 0.6 oz pur e alcohol) Sex and Gender Information Value Date Recorded Sex Assigned at Not on file Legal Sex Male 6:30 AM BI CONSULTANT Gender Identity Not on file Sexual Orientation Not on file Last Filed Vital Signs Vital Sign Reading Time Taken Comments Blood Pressure 113/78 06/27/2018 8:54 AM BI CONSULTANT Pulse 74 06/27/2018 8:54 AM BI CONSULTANT Temperature 36.9 C (98.4 F) 06/27/2018 7:19 AM BI CONSULTANT Respiratory Rate 18 06/27/2018 8:49 AM BI CONSULTANT Oxygen Saturation - - Inhaled Oxygen Concentration - - Weight 86.2 kg (190 lb) 06/25/2018 9:52 AM BI CONSULTANT Height 188 cm (6' 2 ) 06/25/2018 9:52 AM BI CONSULTANT Body Mass Index 24.39 06/25/2018 9:52 AM BI CONSULTANT Plan of Treatment Health Maintenance Due Date Last Done Comments DTAP/TDAP/TD VACCINES (1 - Tdap) 1961 PNEUMOCOCCAL VACCINE 50+ YEA RS (1 of 1 - PCV) 1992 ZOSTER VACCINE (1 of 2) 1992 RSV VACCINE (60+ or ) (1 - 1-dose 75+ series) 2017 COLORECTAL SCREENING 06/27/2023 06/27/2018, 06/27/20 18 INFLUENZA VACCINE (#1) 2025 Procedures Procedure Name Priority Date/Time Associated Diagnosis Comments COLONOSCOPY REPORT Routine 06/27/2018 8:33 AM BI CONSULTANT from Last 3 Months or Most Recently Relevant to Health Maintenance Results * COLONOSCOPY REPORT (06/27/2018 8:33 AM BI CONSULTANT) 06/27/2018 8:33 AM BI CONSULTANT Gm Isbell MD GI PROCEDURE ORDERABL ES Final Result [facility] from Last 3 Months or Most Recently Relevant to Health Maintenance Care Teams Plant Specialist Relationship Specialty Start Date End Date Jeramie Lozano DO [address] [place] [address] PCP - General Family Practice 02/21/12
[2025-01-16 16:17] VITALS: BP 175/78; PULSE 76; RESP 18; TEMP 36.7; O2SAT 97
--- OUTSIDE RECORDS SUMMARY | 2025-01-16 16:17 | XMS_ITS | Data Portability ---
Author Organization [facility], [facility] Address [address] [place] [address] Care Team Providers Care Cardiology Consultant Name Role Phone TATIANA BRADLEY Primary Care Provider Unavailabl e Assessment No assessment recorded. Plan of Treatment Reminders Order Date Submit Date Provider Last Modified By Organization Details Last Modified Time Details Appointments Sandoval Transfer 2024 08:30A M Tatiana Bradley MD Not available Not available Not available Lab hemoglobi n A1C/hemog lobin total, QN, blood 2023 024 [facility], [address], [place], [address], 07/06/2024 12:38:52 CBC 2023 024 [facility], [address], [place], [address], 03/30/2024 16:00:39 BMP, serum or plasma 2023 024 [facility], [address], [place], [address], 03/30/2024 16:53:32 Referral None recorded. Procedures None recorded. Surgeries None recorded. Imaging None recorded. Medication Orders alprazola m 0.25 mg tablet 2023 024 [id number], [address], [place], [place], [id number], 06/08/2024 11:40:05 prednison e 20 mg tablet 2023 024 [facility] #[id number], [address], [place], [place], [id number], 03/04/2024 10:35:02 Augmentin 875 mg-125 mg tablet 2023 024 [facility] #44607, [address], [place], [place], [id number], 03/30/2024 14:40:28 alprazola m 0.25 mg tablet 2023 024 [facility] #[id number], [address], [place], [place], [id number], 03/04/2024 10:35:06 Patient TargetsNo targets recorded. Patient Instructions Encounter Date Encounter Id Patient Instructions Last Modified By Organization Details Last Modified Time 03/30/2024 [id number] hospital records reviewed s/p stent to lad and opening of old stent gets psa with urology next week sleeps all night but wakes up exhausted; easily dozes; 14 on epworth; will need sleep study Not available 03/30/2024 14:59:29 07/01/2024 [id number] reassured on ski n lesion on neck follows with cardiology monitoring sugar he would like to establish with Dr. Bradley [email or web address] Not available 07/01/2024 10:36:16 07/06/2024 [id number] he is checking sugar at home and running higher last a1c 6; repeat today blood pressure reviewed from home and excellent Not available 07/06/2024 12:21:13 Reason for Referral None Reported. Results Created Date Observation Date Name Description Value Unit Range Abnormal Flag Note LastModifiedBy Organization Detail LastModifiedTime 03/30/20 24 03/30/2024 CBC WBC 4.8 x10 4.5-10 .5 Not Available [facility] [address], [place], [address], 03/30/2024 16:00:39 03/30/20 24 03/30/2024 CBC RBC 3.71 x10 4.30-5 .90 low Not Available [facility] [address], [place], [address], 03/30/2024 16:00:39 03/30/20 24 03/30/2024 CBC HGB 12.0 g/dL 13.5-1 8.0 low Not Available [facility] [address], [place], [address], 03/30/2024 16:00:39 03/30/20 24 03/30/2024 CBC HCT 34.4 % 35.0-6 0.0 low Not Available [facility] [address] [facility] [address], [place], [address], 03/30/2024 16:00:39 03/30/20 24 03/30/2024 CBC MCV 92.8 fL 80.0-9 9.9 Not Available [facility] [address] [facility] [address], [place], [address], 03/30/2024 16:00:39 03/30/20 24 03/30/2024 CBC MCH 32.5 pg 27.0-3 2.0 high Not Available [facility] [address] 1, [place], [address], 03/30/2024 16:00:39 03/30/20 24 03/30/2024 CBC MCHC 35.0 g/dL 32.0-3 6.0 Not Available [facility] [address] [facility] 1, [place], [address], 03/30/2024 16:00:39 03/30/20 24 03/30/2024 CBC RDW 13.6 % 11.5-1 4.5 Not Available [facility] [address] 1, [place], [address], 03/30/2024 16:00:39 03/30/20 24 03/30/2024 CBC plt 133.8 x10 150.0- 451.0 low Not Available [facility] [address] [facility] 1, [place], [address], 03/30/2024 16:00:39 03/30/20 24 03/30/2024 CBC lymphocytes % 23.4 % 20.0-5 0.0 Not Available [facility] [address] [facility] 1, [place], [address], 03/30/2024 16:00:39 03/30/20 24 03/30/2024 CBC granulcytes % 56.9 % 30.0-7 0.0 Not Available [facility] [address] [facility], [place], [address], 03/30/2024 16:00:39 03/30/20 24 03/30/2024 CBC monocytes % 16.3 % 2.0-16 .0 high Not Available [facility] [address] [facility] 1, [place], [address], 03/30/2024 16:00:39 03/30/20 24 03/30/2024 CBC granulcytes# 2.7 x10 Not Mora ilable [facility] [address] [facility], [place], [address], 03/30/2024 16:00:39 03/30/20 24 03/30/2024 CBC lymphocytes # 1.1 x10 Not Available [facility] [address] 1, [place], [address], 03/30/2024 16:00:39 03/30/20 24 03/30/2024 CBC monocytes # 0.8 x10 Not Avai lable [facility] [address], [place], [address], 03/30/2024 16:00:39 03/30/20 24 03/30/2024 BMP (MALE ) glucose 111.0 mg/dL 60.0-9 9.0 high Not Available [facility] [address] [facility] 1, [place], [address], 03/30/2024 16:53:32 03/30/20 24 03/30/2024 BMP (MALE ) BUN (blood urea nitrogen) 16.0 mg/dL 10.0-2 6.0 Not Available [facility] [address] [facility] 1, [place], [address], 03/30/2024 16:53:32 03/30/20 24 03/30/2024 BMP (MALE ) creatinine (serum) 1.2 mg/dL 0.4-1. 5 Not Available [facility] [address] [facility] 1, [place], [address], 03/30/2024 16:53:32 03/30/20 24 03/30/2024 BMP (MALE ) BUN/creatini ne ratio 13.11 ratio Not Available [facility] [address] 1, [place], [address], 03/30/2024 16:53:32 03/30/20 24 03/30/2024 BMP (MALE ) calcium 9.3 mg/dL 8.4-10 .5 Not Available [facility] [address] 1, [place], [address], 03/30/2024 16:53:32 03/30/20 24 03/30/2024 BMP (MALE ) sodium 136.0 mmol/ L 136.0- 145.0 Not Available [facility] [address] [facility] 1, [place], [address], 03/30/2024 16:53:32 03/30/20 24 03/30/2024 BMP (MALE ) potassium 4.4 mmol/ L 3.5-5. 1 Not Available [facility] [address], [place], [address], 03/30/2024 16:53:32 03/30/20 24 03/30/2024 BMP (MALE ) chloride 105.0 mmol/ L 98.0-1 10.0 normal Not Available [facility] [address], [place], [address], 03/30/2024 16:53:32 03/30/20 24 03/30/2024 BMP (MALE ) C02 27.0 mmol/ L 22.0-3 1.0 Not Available [facility] [address] [facility], [place], [address], 03/30/2024 16:53:32 07/06/20 24 07/06/2024 HBA1C hemaglobin A1C 5.8 4.2-6. 5 Not Available [facility] [address] [facility], [place], [address], 07/06/2024 12:38:51 Result Notes None recorded. Problems Name Problem SNOMED Code Status Onset Date Resolution Date Notes Provider Name and Address Organization Details Recorded Time Coronary atherosc lerosis 312118736 Active 2021 Jerri robles [facility] 4 10:51:04 Hyperten sive disorder 78810347 Active 2021 Jerri robles [facility] 4 10:51:08 Acute sinusiti s 44988907 Completed 202003/30/2021 SINUSITI S - Status is Inactive ; Recorded 03/30/20 21 8:32AM by Veronica Cam CMT, Annotati on/Adden dum; Promoted ; acuity set as *; Not Available [facility] 3 03:08:33 Bipolar I disorder 376445865 Completed 202003/30/2021 BIPOLAR AFFECTIV E DISORDER - Status is Inactive ; Recorded 03/30/20 9:36AM by DAVID Szymanski, Office Visit; Promoted ; acuity set as *; Not Available [facility] 3 03:08:33 Hyperlip idemia 70674029 Active 2022 ROJELIO KIAN null, [facility] 3 08:31:28 Seborrhe ic keratosi s 022928849 Active [address], [address] , [facility] 4 10:35:18 [facility] hyperten andrews 05015953 Active 2022 Radha robles, [facility] 3 11:31:33 Coronary arterios clerosis 16620219 Active 2022 Radha robles, [facility] 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 3 11:32:00 Anxiety 91917773 Active 2022 Radha Ruby null, [facility] 3 11:32:06 Prostate mass 217320169 Active 2022 Radha robles, [facility] 3 11:32:28 Liver mass 282166912 Active 2022 Radha Ruby null, [facility] 3 11:32:37 Hypergly cemia 83554487 Active 2022 Radha robles, [facility] 3 11:32:56 Mass of urinary bladder 736225473 Active 2022 Radha robles, [facility] 3 11:33:05 Prostate specific antigen above referenc e range 402775970 Active 2022 Radha robles, [facility] 3 11:33:22 Mass of neck 024406649 Active 2022 Radha robles, [facility] 3 11:33:35 Myocardi al infarcti on 89840496 Active 2022 Radha Anneers travis [facility] 3 11:33:49 Dysphagi a 10097815 Active 2022 Radha robles, [facility] 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 3 11:34:23 Malignan t neoplasm of prostate 604440726 Active [address], [address] , [facility] 3 11:15:15 Notes:Some problems listed i n Document: #[id number] could not be added to this patient's chart. Please review this document and add these problems to the patient's chart manually as needed. Problem Notes None recorded. Procedures Surgical History Date Name Laterality Status Provider Name and Address Organization Details Recorded Time 2 Psa screening completed KATI BAUTISTA [facility] 05/20/2023 10:01:21 Imaging Results None recorded. Procedure Notes None recorded. Medical Equipment None Reported. Allergies No known drug allergies Medications Name Sig Start Date Stop Date Status Note LastModified by Organization Details LastModified Time bicalutam joon 50 mg tablet 03/30 completed Not Available Not Available Not Available ondansetr on HCl 4 mg tablet TAKE 1 TABLET BY MOUTH EVERY 6 HOURS NEEDED FOR NAUSEA OR VOMITING active Not Available Not Available No t Available prednison e 20 mg tablet TAKE 1 TABLET BY MOUTH EVERY DAY active Not Available Not Available No t Available clopidogr el 75 mg tablet TAKE 1 TABLET BY MOUTH DAILY active Not Available Not Available No t Available aspirin 81 mg tablet,de layed release daily active Not Available Not Available Not Available alprazola m 0.25 mg tablet TAKE 1 TABLET BY MOUTH TWICE DAILY NEEDED active Not Available Not Available No t Available nitroglyc ilir 0.4 mg sublingua l tablet DISSOLVE ONE TABLET UNDER TONGUE NEEDED FOR CHEST PAIN active Not Available Not Available No t Available sertralin e 25 mg tablet Take 1 tablet every day by oral route. 03/30 completed Not Available Not Available Not Available aspirin 81 mg chewable tablet TAKE 1 TABLET BY MOUTH DAILY 03/30 completed Not Available Not Available Not Available lisinopri l 5 mg tablet TAKE 1 TABLET BY MOUTH TWICE DAILY active Not Available Not Available No t Available levofloxa douglas 500 mg tablet 12/26 completed Not Available Not Available Not Available lisinopri l 2.5 mg tablet TAKE 1 TABLET BY MOUTH TWICE DAILY active Not Available Not Available No t Available amoxicill in 875 mg-potass ium clavulana te 125 mg tablet TAKE 1 TABLET BY MOUTH EVERY 12 HOURS 03/30 completed Not Available Not Available Not Available Ventolin HFA 90 mcg/actua tion aerosol inhaler INHALE 2 PUFFS BY MOUTH EVERY 4 HOURS NEEDED FOR SHORTNES S OF BREATH OR WHEEZING active Not Available Not Available No t Available azithromy douglas 500 mg tablet TAKE 1 TABLET BY MOUTH DAILY FOR 5 DAYS 07/01 completed Not Available Not Available Not Available rosuvasta tin 5 mg tablet TAKE 1 TABLET BY MOUTH EVERY DAY 03/30 completed Not Available Not Available Not Available rosuvasta tin 20 mg tablet TAKE 1 TABLET BY MOUTH AT BEDTIME active Not Available Not Available No t Available bupropion HCl XL 150 mg 24 hr tablet, extended release Take 1 tablet every day by oral route. 03/30 completed Not Available Not Available Not Available nystatin 942696 UNIT OINTMENT ,BID 03/30 completed Not Available Not Available Not Available alprazola m two times daily, as needed 07/01 completed Recorded 03/12/20 22 2:13PM by Bryn Sandoval DO, Office Visit; Refill Quantity : 10; Tablet; Not Available Not Available Not Available lisinopri l daily 12/29 completed cs/smf; 63700; Recorded 07/31/19 22 7:59AM by Komal Aragon (Authori frederickd through Bryn Sandoval DO), Office Visit; Refill Quantity : 30; Tablet; Not Available Not Available Not Available Crestor daily 12/29 completed 14080; Recorded 08/31/19 23 11:17AM by Liss Chaparro (Authori maryam through Hernesto Stanley MD), Refill Request; Refill Quantity : 90; Tablet; Not Available Not Available Not Available aspirin 81 mg capsule Take 1 capsule every day by oral route. 07/01 completed Not Available Not Available Not Available COVID-19 At-Home Test kit TEST DIRECTED TODAY active Not Available Not Available No t Available Vitals Date Recorded Body weight Respiratory rate Heart rate Oxygen saturation Oxygen saturation in Arterial blood by Pulse oximetry Systolic And Diastolic Provider Name and Address Organization Details Last Updated DateTime 4 36487.3 7 g 16 /min 82 /min 95 % 95 % 96/54 mm[Hg] [facility] 4 10:18:43 Date Recorded Body height Body mass index (BMI) Body weight Oxygen saturation Oxygen saturation in Arterial blood by Pulse oximetry Systolic And Diastolic Provider Name and Address Organization Details Last Updated DateTime 4 187.96 cm 9.5 kg/m2 43843.8 4 g 95 % 95 % 122/64 mm[Hg] [facility] 4 14:37:25 Date Recorded Body height Body mass index (BMI) Body weight Respiratory rate Heart rate Oxygen saturation Oxygen saturation in Arterial blood by Pulse oximetry Systolic And Diastolic Provider Name and Address Organization Details Last Updated DateTime 4 187.96 cm 23.2 kg/m2 05969.2 2 g 20 /min 92 /min 94 % 94 % 132/70 mm[Hg] [facility] 4 11:20:40 Date Recorded Body height Body mass index (BMI) Body weight Respiratory rate Heart rate Oxygen saturation Oxygen saturation in Arterial blood by Pulse oximetry Systolic And Diastolic Provider Name and Address Organization Details Last Updated DateTime 4 187.96 cm 24.5 kg/m2 27880.1 4 g 18 /min 50 /min 97 % 97 % 136/72 mm[Hg] [facility] 4 10:13:36 Date Recorded Body height Body mass index (BMI) Body weight Heart rate Oxygen saturation Oxygen saturation in Arterial blood by Pulse oximetry Systolic And Diastolic Provider Name and Address Organization Details Last Updated DateTime 4 187.96 cm 10.5 kg/m2 99284.5 7 g 82 /min 90 % 90 % 142/70 mm[Hg] [facility] 4 12:07:06 Social History Question Answer Notes LastModified by Organization D etails LastModified Time Are You Blind Or Do You Have Difficulty Seeing? No [email or web address] Information n ot available 10/03/2022 Are You Deaf Or Do You Have Serious Difficulty Hearing? No [email or web address] Information not available 10/03/2022 Do You Have Difficulty Walking Or Climbing Stairs? No [email or web address] Information not available 10/03/2022 Sex: Unknown Functional Status Question Answer Note LastModified by Organizat ion Details LastModified Time Are you able to walk? YESWOREST [email or web address] Information not available 10/03/2022 Do you have difficulty doing errands alone? No [email or web address] Information not available 10/03/2022 Are you able to care for yourself? Yes [email or web address] Information not available 10/03/2022 Do you have difficulty dressing or bathing? No [email or web address] Information not available 10/03/2022 Mental Status Question Answer Note LastModified by Organization D etails LastModified Time Do you have difficulty concentrating, remembering or making decisions? No [email or web address] Information no t available 10/03/2022 Family History Relationship Description Onset Age of this Age Resolved Age Notes LastModified by Organization Details LastModified Time Mother Anxiety [email or web address] Not available 0 10/29/2024 08:35:10 Mother Hypertensive disorder [email or web address] Not available 2024 08:35:22 Medical History Condition Response Coronary Artery Disease N Gout N Kidney Stones N Hyperthyroidism N Hypothyroidism N Depression N COPD N Anemia N Difficulty Swallowing N MRSA exposure N Anxiety Disorder N Meniere's disease N Diabetes N Obesity N Arthritis N Mental Disorder N Tuberculosis N AIDS/HIV N Congestive Heart Failure (CHF) N Cancer Y Stroke N Diverticulitis N Asthma N Reflux/GERD N High Cholesterol N Liver Disease N Heart Disease N Pulmonary Embolism N Fibromyalgia N Chronic Ear Infections N Hypertension N Osteoporosis N Kidney Disease N Past Encounters Encounter ID Performer Location Encounter Start Date Encounter Closed Date Diagnosis/Indication Diagnosis SNOMED-CT Code Diagnosis ICD10 Code Diagnosis Note [id number] Bryn Sandoval DO [facility] ([facility]) [address] [place] [address] 10/03/2022 10:19:09 10/09/2022 18:20:00 Anxiety 77940502 F41.9 Prostate s pecific antigen above reference range 257740388 R97.20 Essential hypertension 77569604 I10 Presbyesophagus 67711629 4 K22.89 [id number] DO STACY Porras ([facility]) [address] [place] [address] 11/09/2022 10:43:31 11/09/2022 19:21:44 Malignant neoplasm of prostate 828679988 C61 MRI reviewed showing stage 4 [id number] Bryn Sandoval DO [facility] ([facility]) [address] [place] [address] 12/26/2022 15:29:39 12/26/2022 20:48:34 Hyperlipidemia 56825637 E78.00 Malignant neoplasm of prostate 156443601 C61 Major depr essive disorder 863989859 F32.9 [id number] Bryn Sandoval DO [facility] ([facility]) [address] [place] [address] 02/11/2023 11:05:32 02/11/2023 20:02:23 Anxiety 63384970 F41.9 Major depr essive disorder 064507302 F32.9 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 C61 [id number] Bryn Sandoval DO [facility] ([facility]) [address] [place] [address] 5 07/01/2023 08:38:59 07/01/2023 09:31:48 Essential hypertension 43844286 I10 Hyperlipidemia 73371991 E78.00 Malignant neoplasm of prostate 140933689 C61 [id number] Bryn Sandoval DO [facility] ([facility]) [address] [place] [address] 07/01/2023 13:52:58 07/01/2023 16:40:16 Essential hypertension 44532205 I10 Active or passive immunization 314319791 Z23 Adult [facility] th examination 158289543 Z00.01 Anxiety 91093294 F41.9 Change in skin lesion 39 2952340 L98.9 [id number] Bryn Sandoval DO [facility] ([facility]) [address] [place] [address] 12/30/2023 11:38:31 12/30/2023 17:06:23 Essential hypertension 41063875 I10 [id number] Bryn Sandoval DO [facility] ([facility]) [address] [place] [address] 03/04/2024 10:11:00 03/04/2024 10:43:37 Malignant neoplasm of prostate 549508293 C61 Hypertensive disorder 38 303935 I10 Anxiety 52758193 F41.9 Acute bact erial bronchitis 713915833 J20.9 [id number] Bryn Sandoval DO [facility] ([facility]) [address] [place] [address] 03/30/2024 14:23:02 03/30/2024 15:41:34 Coronary arteriosclerosis 99862728 I25.10 Stented co ronary artery 472125783 Z95.5 [id number] Bryn Sandoval DO [facility] ([facility]) [address] [place], [place] [address] 06/08/2024 11:14:56 06/08/2024 12:20:57 Middle ear effusion 9200313172 H74.8X9 Anxiety 93345262 F41.9 [id number] Bryn Sandoval DO [facility] ([facility]) [address] [place] [address] 5 07/01/2024 10:05:15 07/01/2024 11:36:56 Seborrheic keratosis 608195743 L82.1 Coronary arteriosclerosis 14683411 I25.10 Hyperglycemia 95467353 R 73.9 [id number] Bryn Sandoval DO [facility] ([facility]) [address] [place] [address] 5 07/06/2024 12:00:36 07/06/2024 12:41:23 Hyperglycemia 23284454 R73.9 Essential hypertension 89898801 I10 Health Concerns Section Related Observation LastModified by Organization Detai ls LastModified Time None Recorded Concern Status LastModified by Organization Details LastModified Time None Recorded Advance Directives Directive None Recorded Payers Insurance Date Sequence Insurance Name Policy Number Policy Laughlin Covered Member ID Laughlin Member ID Guarantor Name 01/16/2025 1 [facility] (MEDICARE REPLACEMENT/A DVANTAGE - PPO) [id number] Bob Barreto [id number] Bob Barreto Notes Date Note Type Note Provider Name and Address Organization Details Recorded Time 03/04/2024 text/html Generalized Anxi ety DisorderReported bypatient.Severity:mod erate Context:depression Associated Symptoms:excess anxiety Bryn Sandoval DO [address] [place] [address], [address], [facility] Garcia 03/04/2024 10:34:58 03/30/2024 text/html Generalized Anxi ety DisorderReported bypatient.Severity:mod erate Context:depression Associated Symptoms:excess anxiety Bryn Sandoval DO [address] [place] [address], [phone], [facility] Garcia 03/30/2024 14:59:36 06/08/2024 text/html CoughReported bypatient.Quality:prod uctive Severity:moderate Context:non-smoker Bryn Sandoval, [address], [address], [facility], [place] 06/08/2024 11:39:13 07/01/2024 text/html Skin LesionRepor santo bypatient.Location:[facility] Severity:unchanged Aggravating Factors:none Prior Treatments:none Bryn Sandoval [address], [address], [facility], [place] 07/01/2024 10:37:38 07/06/2024 text/html Generalized Anxi ety DisorderReported bypatient.Severity:mod erate Context:depression Associated Symptoms:excess anxiety Bryn Sandoval [address], [address], [facility], [place] 07/06/2024 12:23:03
--- NOTE | 2025-01-16 16:27 | ECG_ITS ---
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
== END 2025-01-16 16:41 | disposition left against medical advice (07) ==
LOC: ER 16:14
PROVIDERS: Emergency Provider Family Medicine; PCP Family Medicine
DX: R94.31 Abnormal electrocardiogram [ECG] [EKG] (principal); Z53.21 Procedure and treatment not carried out due to patient leaving prior to being seen by health care provider
CPT/HCPCS: 93005

== ENCOUNTER → 2025-01-27 15:43 | Outpatient (BNVA) | payer MEDICARE, SELFPAY | PROVIDERS: PCP Family Medicine; Visit Provider Internal Medicine Cardiovascular Disease | DX: I25.10 Atherosclerotic heart disease of native coronary artery without angina pectoris (principal); Z98.61 Coronary angioplasty status; F41.9 Anxiety disorder, unspecified; I11.0 Hypertensive heart disease with heart failure; I50.20 Unspecified systolic (congestive) heart failure | CPT/HCPCS: 99214 ==

== ENCOUNTER 2025-02-10 09:06 | Outpatient (CLI) | payer MEDICARE, SELFPAY ==
--- NOTE | 2025-02-10 09:00 | USCV_ITS ---
Bob Barreto Age: 84 Gender: M : 1940 Exam Date: 02/10/2025 09:14 Ordering Phys: Darci Sosa MD ([email or web address]) Technologist: [employer]R Exam Location: [facility] [place] Indication: bilat stenosis Risk Factors: Previous Vascular Surgery: Right Brachial BP: / Left Brachial BP: / Right Left Velocity (cm/s) Spectral Plaque Velocity (cm/s) Spectral Plaque Syst/Diast Broadening Syst/Diast Broadening 80.90/ 11.60 Prox CCA 74.90 / 15.20 71.50/ 12.80 Mid CCA 59.10 / 16.20 73.80/ 16.80 Distal CCA 63.90 / 15.20 43.90/ 10.60 Prox ICA 53.30 / 13.00 57.40/ 14.90 Mid ICA 51.80 / 15.90 41.60/ 11.90 Distal ICA 65.40 / 21.10 73.00 ECA 90.50 0.60 ICA/CCA 0.80 Antegrade Vertebral Antegrade 39.00/ 9.30 cm/s 39.30/ 11.60 cm/s Bi Subclavian Tri 54.70 109.4 0 CONCLUSIONS Right ICA stenosis <50%. Moderate atheromatous plaque right carotid bulb/ICA. Left ICA stenosis <50%. Moderate atheromatous plaque left carotid bulb/ICA. Normal antegrade Doppler flow noted in the left vertebral artery. Normal antegrade Doppler flow noted in the right vertebral artery. Estevan Humphreys MD (Electronically Signed) Final Date: 10 February 2025 16:06 S
== END 2025-02-10 09:07 | disposition home or self-care (01) ==
LOC: RAD 09:07
PROVIDERS: PCP Family Medicine; Visit Provider Internal Medicine Cardiovascular Disease
DX: I65.23 Occlusion and stenosis of bilateral carotid arteries (principal)
CPT/HCPCS: 93880

== ENCOUNTER 2025-06-01 23:47 | Emergency (ER) | payer MEDICARE, SELFPAY ==
--- NOTE | 2025-06-01 23:49 | ECG_ITS ---
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 Measurements Intervals [place] Rate: 53 P: 43 RI: 215 QRS: -14 QRSD: 102 T: 44 QT: 409 QTc: 386 Interpretive Statements SINUS BRADYCARDIA WITH FIRST DEGREE AV BLOCK LOW QRS VOLTAGE IN PRECORDIAL LEADS [QRS DEFLECTION < 1.0 mV IN CHEST LEADS] Compared to ECG 01/16/2025 16:17:18 First degree AV block now present Sinus rhythm no longer present Electronically Signed On 06-02-2025 07:39:41 RECLAMATION WORKER by Ancelmo Hudson M.D. [email or web address]
[2025-06-01 23:53] VITALS: BP 157/74; PULSE 53; RESP 18; TEMP 36.4; O2SAT 99; BMI 24.9
[2025-06-02] VITALS (11 sets, daily range): BP systolic 139–185; BP diastolic 75–104; PULSE 54–70; O2SAT 96–99
[2025-06-02 01:23] LABS: Hematocrit 34.1 % (37-53); Hemoglobin 11.40 g/dL (11.27-16.99); Mean Corpuscular HGB Conc 33.4 g/dL (30-55); Mean Corpuscular Hemoglobin 30.6 pg (27-33); Mean Corpuscular Volume 91.4 fl (82-101); Nucleated Red Blood Cells % 0 %; Platelet Count 145 10^3/cmm (157-399); Red Blood Count 3.73 10^6/uL (3.85-5.65); White Blood Count 5.19 10^3/uL (3.29-11.43)
[2025-06-02 01:46] LABS: Troponin(5th) Baseline 22 ng/L (0-15)
--- NOTE | 2025-06-02 01:49 | ECG_ITS ---
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 Measurements Intervals [place] Rate: 54 P: 39 TN: 192 QRS: 13 QRSD: 92 T: 55 QT: 406 QTc: 387 Interpretive Statements SINUS BRADYCARDIA LOW QRS VOLTAGE IN PRECORDIAL LEADS [QRS DEFLECTION < 1.0 mV IN CHEST LEADS] Compared to ECG 01/16/2025 16:17:18 Sinus rhythm no longer present Electronically Signed On 06-02-2025 09:52:30 CONSTRUCTION STONEMASON by Ancelmo Hudson M.D. [email or web address] [id number]
[2025-06-02 01:56] LABS: Alanine Aminotransferase 21 U/L (0-41); Albumin Level 4.3 g/dL (3.5-5.2); Alkaline Phosphatase 92 U/L (40-130); Anion Gap 15.3 (5-19); Aspartate Amino Transferase 23 U/L (0-40); Blood Urea Nitrogen 12 mg/dL (8-23); Calcium 9.4 mg/dL (8.5-10.5); Carbon Dioxide 26 mmol/L (22-29); Chloride 96 mmol/L (98-107); Globulin 2.2 g/dL (1.3-4.6); Glucose 112 mg/dL (65-115); Magnesium 2.2 mg/dL (1.7-2.3); NT Pro B Type Natriuretic Pept 194 pg/mL (0-450); Osmolality Calculated 277 mOsm/kg (285-295); Potassium 4.3 mmol/L (3.5-5.1); Sodium 133 mmol/L (136-145); Total Protein 6.5 g/dL (6.6-8.7)
[2025-06-02 02:58] LABS: CRP High Sensitivity Cardiac 2.000 mg/dL (0.0-0.3)
[2025-06-02 03:44] LABS: Troponin 5 2HR 20.24 ng/L (0-15)
[2025-06-02 03:50] LABS: Troponin 5 2HR Delta -1.76 ABS# (0-10)
--- NOTE | 2025-06-02 04:10 | W.ED.CHESTPA ---
HPI - Chest Pain General: Chief Complaint: Chest Pain Stated Complaint: Chest Pains Time Seen by Provider: 06/02/25 00:23 History of Present Illness: Patient is an 84-year-old male with a history of CAD status post PCI, heart failure, HLD, hypertension who presents to the ED with a recent episode of dull, midline chest pain that did not radiate, seemingly occurred with exertion while he was working, resolve quickly with rest and did not recur. He is completely pain-free on initial ED evaluation. He reports chronic weakness over the past month, which has been more pronounced in the last few days, and attributes this to a persistent urinary tract/prostate infection for which he has been on various antibiotics for approximately 30 days, currently restarted on his original regimen for the past three days and is due to follow-up with the urologist tomorrow to further discuss this. He has had no abdominal pain, NVD, dysuria, hematuria. He has not had provocative cardiac testing in the last year, denies having episodes of this chest pain prior to today's episode. Related Data Home Medications ?Medication ?Instructions ?Recorded ?Confirmed aspirin 81 mg tablet,delayed 243 mg PO DAILY 11/08/23 01/27/25 release (Adult Low Dose Aspirin) cholecalciferol (vitamin D3) 10 400 unit PO DAILY 11/08/23 01/27/25 mcg (400 unit) capsule alprazolam 0.25 mg tablet 0.25 mg PO BID PRN Anxiety 03/06/24 01/27/25 clopidogrel 75 mg tablet 75 mg PO DAILY 05/12/24 01/27/25 lisinopril 5 mg tablet 5 mg PO BID 04/13/25 Previous Rx's ?Medication ?Instructions ?Recorded nitroglycerin 0.4 mg sublingual 0.4 mg sublingual DIRECTED #25 02/28/23 tablet (Nitrostat) tabs rosuvastatin 5 mg tablet 5 mg PO DAILY #90 tabs 06/07/23 Allergies Allergy/AdvReac Type Severity Reaction Status Date / Time No Known Allergies Allergy Verified 06/02/25 00:06 Review of Systems General: Reports: 10 or more systems reviewed and unremarkable except in HPI and below Card: Reports: chest pain : Reports: dysuria [facility] ED PFSH: Medical History (Updated 06/02/25 @ 04:10 by Jose Martin Cormier DO) CAD (coronary artery disease) Elevated PSA Bladder cancer Enlarged prostate Hyperlipidemia HTN (hypertension) Systolic heart failure Ischemic cardiomyopathy Surgical History S/P arterial stent S/P PTCA (percutaneous transluminal coronary angioplasty) Family History Father , at age 91 No problems noted. Mother , at age 91 No problems noted. 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 Normal sinus rhythm with no murmurs, no leg swelling, 2+ pulses throughout, good cap refill. Breathing comfortably on room air, saturating well, able to speak in full sentences without getting short of breath, no adventitious lung sounds. Abdomen soft, nontender, nondistended, no overlying skin changes, no CVA tenderness. Course Vital Signs: Vital signs: Vital Signs Temperature 97.5 F L 06/01/25 23:53 Pulse Rate 60 06/02/25 04:00 Respiratory Rate 18 06/01/25 23:53 Blood Pressure 147/75 06/02/25 04:00 Pulse Oximetry 97 06/02/25 04:00 Oxygen Delivery Me thod Room Air 06/02/25 03:30 MDM - Chest Pain Medical Decision Making -ddx: Stable versus unstable angina, pericarditis, URI, pneumonia, dysrhythmia, UTI, prostatitis, dehydration, electrolyte abnormality - Patient overall well-appearing, with 1 episode of sending stable angina, quickly resolved after exertion, has not been having this leading up to now, has felt a little weaker than normal over the past few days in setting of treatment of his prostatitis, will evaluate with cardiac/infectious labs and risk stratify for ultimate disposition, denying needing any pain medication at this time. - Patient with largely reassuring laboratory evaluation, no signs or symptoms concerning for bacteremia or sepsis, normal vitals, no leukocytosis low ESR. No significant electrolyte abnormality, no KOMAL. First troponin of 22 and negative delta to 20 with EKGs showing sinus bradycardia, no interval irregularities, no ST elevation or depression, no dynamic changes and probably has baseline mild troponin elevation with his previous cardiac history. No further episodes of chest pain while in the ED. - Even though patient had a largely reassuring ED evaluation, had a hear score of 6 and his story was concerning for stable angina especially in setting of no provocative cardiac testing within the last year, for this, recommended admission but patient preferred to be discharged home, stated he had his urology follow-up appointment tomorrow which was important to him with his prostatitis, shared decision-making was had and we agreed he could go home and would return with any worsening of this chest pain especially if at rest, syncope, breathing difficulties, and he would make a cardiology appointment within the next week to rediscuss his symptoms and see if repeat provocative testing was needed at this time, discharged in stable condition with at bedside. Lab Data 06/02/25 01:00 06/02/25 01:00 Laboratory Results WBC 5.19 10^3/uL (3.29-11.43) 06/02/25 01:00 RBC 3.73 10^6/uL (3.85-5.65) L 06/02/25 01:00 Hgb 11.40 g/dL (11.27-16.99) 06/02/25 01:00 Hct 34.1 % (37-53) L 06/02/25 01:00 MCV 91.4 fl (82-101) 06/02/25 01:00 MCH 30.6 pg (27-33) 06/02/25 01:00 MCHC 33.4 g/dL (30-55) 06/02/25 01:00 RDW 12.2 % (12.1-15.1) 06/02/25 01:00 Plt Count 145 10^3/cmm (157-399) L 06/02/25 01:00 MPV 9.7 fL (7.4-10.4) 06/02/25 01:00 Neut % (Auto) 54.4 % 06/02/25 01:00 Lymph % (Auto) 24.7 % 06/02/25 01:00 Vernon % (Auto) 15.8 % 06/02/25 01:00 Eos % (Auto) 3.9 % 06/02/25 01:00 Baso % (Auto) 0.6 % 06/02/25 01:00 Neut # (Auto) 2.83 10^3/uL (1.8-7.7) 06/02/25 01:00 Lymph # (Auto) 1.3 10^3/uL (0.8-4.8) 06/02/25 01:00 Vernon # (Auto) 0.8 10^3/uL (0.2-0.9) 06/02/25 01:00 Eos # (Auto) 0.2 10^3/uL (0.0-0.8) 06/02/25 01:00 Baso # (Auto) 0.0 10^3/uL (0.0-0.1) 06/02/25 01:00 Nucleated RBC % (auto) 0 % 06/02/25 01:00 Nucleated RBCs # 0.0 /100WBC 06/02/25 01:00 ESR 5 mm/hr (0-10) 06/02/25 01:00 Sodium 133 mmol/L (136-145) L 06/02/25 01:00 Potassium 4.3 mmol/L (3.5-5.1) 06/02/25 01:00 Chloride 96 mmol/L (98-107) L 06/02/25 01:00 Carbon Dioxide 26 mmol/L (22-29) 06/02/25 01:00 Anion Gap 15.3 (5-19) 06/02/25 01:00 BUN 12 mg/dL (8-23) 06/02/25 01:00 Creatinine 1.0 mg/dL (0.7-1.2) 06/02/25 01:00 GFR Calculation Not Reportable 06/02/25 01:00 Glucose 112 mg/dL (65-115) 06/02/25 01:00 Calculated Osmolality 277 mOsm/kg (285-295) L 06/02/25 01:00 Calcium 9.4 mg/dL (8.5-10.5) 06/02/25 01:00 Phosphorus 3.9 mg/dL (2.5-4.5) 06/02/25 01:00 Magnesium 2.2 mg/dL (1.7-2.3) 06/02/25 01:00 Total Bilirubin 0.4 mg/dL (0.15-1.2) 06/02/25 01:00 AST 23 U/L (0-40) 06/02/25 01:00 ALT 21 U/L (0-41) 06/02/25 01:00 Alkaline Phosphatase 92 U/L (40-130) 06/02/25 01:00 Troponin T Baseline 22 ng/L (0-15) H 06/02/25 01:00 Troponin T 120 Minute 20.24 ng/L (0-15) H 06/02/25 03:08 Delta Troponin T -1.76 ABS# (0-10) L 06/02/25 03:08 C-React Prot High Sens 2.000 mg/dL (0.0-0.3) H 06/02/25 01:00 NT-Pro-B Natriuret Pep 194 pg/mL (0-450) 06/02/25 01:00 Total Protein 6.5 g/dL (6.6-8.7) L 06/02/25 01:00 Albumin 4.3 g/dL (3.5-5.2) 06/02/25 01:00 Globulin 2.2 g/dL (1.3-4.6) 06/02/25 01:00 All radiology interpretation(s) finalized by discharge EKG Data EKG 1: Interpretation: Sinus bradycardia in the 50s, no interval prolongation, no ST elevation or depression Clincial Decision Support The following clinical decision support tools were used to aid in care of the patient HEART Score -> History: Moderately Suspicious, EKG: Normal, Age: 65 or more yrs, Risk Factors: >/=3 Risk Factors, Troponin: Baseline Trop 16-45 ng/L. Resulting HEART Score: 6. Discharge Plan Discharge Patient Disposition: Home Clinical Impression: Stable angina, UTI (urinary tract infection) Condition: Stable Prescriptions: No Action cholecalciferol (vitamin D3) 10 mcg (400 unit) capsule 400 unit PO DAILY aspirin [Adult Low Dose Aspirin] 81 mg tablet,delayed release (DR/EC) 243 mg PO DAILY Rx Instructions: (3 tablets) clopidogrel 75 mg tablet 75 mg PO DAILY nitroglycerin [Nitrostat] 0.4 mg tablet, sublingual 0.4 mg SUBLINGUAL DIRECTED Qty: 25 6RF rosuvastatin 5 mg tablet 5 mg PO DAILY Qty: 90 3RF lisinopril 5 mg tablet 5 mg PO BID alprazolam 0.25 mg tablet 0.25 mg PO BID PRN (Reason: Anxiety) Discharge Orders: Discharge ED (Routine); Ordered 06/02/25 Ordered By: Jose Martin Cormier Referrals: Dusty Bradley MD [Primary Care Provider, Family Practice] Reese Sosa MD [Referring, Cardiology] - 4-7 days Patient Instructions: Opioid Safety, Pain Management, Patient Portal & Dawn Instructions Activity Restrictions/Additional Instructions: You were seen for your episode of chest pain and weakness in setting of your urinary tract infection, you were evaluated with an EKG and laboratory studies that were ultimately reassuring for no heart attack or other emergent conditions today. Because of your cardiac history, it is important that you follow-up with a gear keeper and see if new stress testing is needed on your heart, call the gear keeper office listed above in the next 3 days to set up an appointment if they do not contact you within this timeframe. Return to the ED with severe worsening of the chest pain at rest, difficulties breathing, episodes of passing out, fevers, any other emergent concerns. Print Language: [place] Coding Level of Care Code ED Community Living Coach for Chg Fwd Heart Score HEART Score Components History: Moderately Suspicious EKG: Normal Age: 65 or more yrs Risk Factors: >/=3 Risk Factors Troponin: Baseline Trop 16-45 ng/L HEART Score RESULT HEART Score: 6
--- OUTSIDE RECORDS SUMMARY | 2025-06-02 05:30 | XMS_ITS | Data Portability ---
Author Organization [facility] Bebeto Garcia, [facility] Address [address] [facility] [address] [place] [address] Care Team Providers Care Assignment Officer Name Role Phone TATIANA BRADLEY Primary Care Provider Unavailabl e Assessment Encounter Date Assessment Date Assessment LastModified by Organization Details LastModified Time 05/31/2025 05/31/2025 will request his cystoscopy results. he has a history of prostate cancer. it is unclear what was done during the cystoscopy. it sounds like no bx etc was necessary. previous cx resistant to cipro but he feels he is responding. has failed augmentin and macrobid. suspect possible prostate infection. will start cipro await cx. if he feels worse or any new fever, he will go immediately to the ER. Not available 05/31/2025 10:26:59 Plan of Treatment Reminders Order Date Submit Date Provider Last Modified By Organization Details Last Modified Time Details Appointments RECHECK 15 2024 08:45A M Tatiana Bradley MD Not available Not available Not available LAB 2024 09:40A M LAB Not available Not available Not available Lab urinalysi s, complete 2024 025 [facility], [address], [address], [place], [address], 05/31/2025 11:02:58 culture, urine 2024 025 [employer] [facility], [address] [facility] [address], [address], [place], [address], 05/31/2025 10:09:19 culture, urine 2024 025 [employer] [facility], [address] [place] [address], [address], [place], [address], 05/29/2025 02:44:05 urinalysi s, dipstick 2024 025 [facility] ([facility]), [address] [place], [address], 05/27/2025 09:21:56 urinalysi s, complete 2024 025 [facility], [address] [place], [place] [address]e, [address], [place], [address], 05/12/2025 12:58:05 culture, urine 2024 025 [employer] [facility], [address] [place] [address], [address], [place], [address], 05/15/2025 18:05:34 PSA, serum or plasma 2024 025 [employer] [facility], [address] [place] [address], [address], [place], [address], 01/22/2025 08:31:51 hemoglobi n A1C/hemog lobin total, QN, blood 2024 025 [facility], [address] [place] [address] Ave, [address], [place], [address], 01/21/2025 09:30:06 CBC 2024 025 [facility], [address] [place] [address] Ave, [address], [place], [address], 01/21/2025 09:24:30 iron + TIBC + ferritin, serum 2024 025 [employer] [facility], [address] [place] [address], [address], [place], [address], 01/22/2025 08:31:50 vitamin B12 + folate, serum or blood 2024 025 [employer] [facility], [address] [facility] [address], [address], [place], [address], 01/22/2025 08:31:52 lipid panel, blood 2024 025 [facility], [address], [address], [place], [address], 01/21/2025 09:37:52 CMP, serum or plasma 2024 025 [facility], [address], [address], [place], [address], 01/21/2025 09:37:58 hemoglobi n A1C/hemog lobin total, QN, blood 2023 024 [facility], [address], [address], [place], [address], 07/06/2024 12:38:52 Referral None recorded. Procedures measureme nt of post-void ing residual urine and/or bladder capacity (PROC) [address], [address], [address], [place], [address], 05/31/2025 11:48:39 Surgeries None recorded. Imaging US, kidney [address], [address], [place], [address], 05/31/2025 11:48:15 Medication Orders ciproflox acin 500 mg tablet 2024 025 [facility][id number], [address], [place], [place], [id number], 05/31/2025 10:22:45 nitrofura ntoin monohydra te/macroc rystals 100 mg capsule 2024 025 [facility] #[id number], [address], [place], [place], [id number], 05/27/2025 09:28:24 cefdinir 300 mg capsule 2024 [facility] #[id number], [address], [place], [place], [id number], 05/26/2025 05:01:46 Nitrostat 0.4 mg sublingua l tablet 2024 [facility] #[id number], [address], [place], [place], [id number], 01/19/2025 09:57:19 Patient TargetsNo targets recorded. Patient Instructions Encounter Date Encounter Id Patient Instructions Last Modified By Organization Details Last Modified Time 07/06/2024 [id number] he is checking sugar at home and running higher last a1c 6; repeat today blood pressure reviewed from home and excellent [email or web address] Not available 07/06/2024 12:21:13 05/12/2025 [id number] We will switch t o cefdinir and call with culture results. Follow up for worsening [email or web address] Not available 05/12/2025 14:05:59 Reason for Referral None Reported. Results Created Date Observation Date Name Description Value Unit Range Abnormal Flag Note LastModifiedBy Organization Detail LastModifiedTime 07/06/20 24 07/06/2024 HBA1C hemaglobin A1C 5.8 4.2-6. 5 Not Available [facility] [address] [facility] [address], [place], [address], 07/06/2024 12:38:51 01/22/20 25 01/21/2025 CBC WBC 5.0 x10 4.5-10 .5 Not Available [facility] [address], [place], [address], 01/21/2025 09:24:30 01/22/2001/21/2025 CBC RBC 4.19 x10 4.30-5 .90 low Not Available [facility] [address], [place], [address], 01/21/2025 09:24:30 01/22/2001/21/2025 CBC HGB 13.1 g/dL 13.5-1 8.0 low Not Available [facility] [address], [place], [address], 01/21/2025 09:24:30 01/22/2001/21/2025 CBC HCT 39.6 % 35.0-6 0.0 Not Available [facility] [address] [facility] 1, [place], [address], 01/21/2025 09:24:30 01/22/2001/21/2025 CBC MCV 94.5 fL 80.0-9 9.9 Not Available [facility] [address] [facility] 1, [place], [address], 01/21/2025 09:24:30 01/22/2001/21/2025 CBC MCH 31.4 pg 27.0-3 2.0 Not Available [facility] [address] [facility] [address], [place], [address], 01/21/2025 09:24:30 01/22/2001/21/2025 CBC MCHC 33.2 g/dL 32.0-3 6.0 Not Available [facility] [address], [place], [address], 01/21/2025 09:24:30 01/22/202025 CBC RDW 13.3 % 11.5-1 4.5 Not Available [facility] [address] [facility] 1, [place], [address], 01/21/2025 09:24:30 01/22/2001/21/2025 CBC plt 139.3 x10 150.0- 451.0 low Not Available [facility] [address] [facility] 1, [place], [address], 01/21/2025 09:24:30 01/22/20 25 01/21/2025 CBC lymphocytes % 23.9 % 20.0-5 0.0 Not Available [facility] [address] [facility] 1, [place], [address], 01/21/2025 09:24:30 01/22/20 25 01/21/2025 CBC granulcytes % 57.3 % 30.0-7 0.0 Not Available [facility] [address] [facility] 1, [place], [address], 01/21/2025 09:24:30 01/22/2001/21/2025 CBC monocytes % 15.6 % 2.0-16 .0 Not Available [facility] [address] [facility] 1, [place], [address], 01/21/2025 09:24:30 01/22/2001/21/2025 CBC granulcytes# 2.9 x10 Not Mora ilable [facility] [address] [facility] 1, [place], [address], 01/21/2025 09:24:30 01/22/2001/21/2025 CBC lymphocytes # 1.2 x10 Not Available [facility] [address] [facility] 1, [place], [address], 01/21/2025 09:24:30 01/22/2001/21/2025 CBC monocytes # 0.8 x10 Not Avai lable [facility] [address] [facility] [address] [facility] 1, [place], [address], 01/21/2025 09:24:30 01/22/20 25 01/21/2025 HBA1C hemaglobin A1C 5.7 4.2-6. 5 Not Available [facility] [address] [facility], [place], [address], 01/21/2025 09:30:06 01/22/2001/21/2025 LIPID PROFI LE (MALE ) cholesterol 143.0 mg/dL 0.0-20 0.0 Not Available [facility] [address] [facility] [address] [facility], [place], [address], 01/21/2025 09:37:52 01/22/20 25 01/21/2025 LIPID PROFI LE (MALE ) trig 149.0 mg/dL 0.0-15 0.0 Not Available [facility] [address] [facility] [address] [address], [place], [address], 01/21/2025 09:37:52 01/22/2001/21/2025 LIPID PROFI LE (MALE ) HDL - direct 38.0 mg/dL >40.0 low Not Available [facility] [address] [facility] 1, [place], [address], 01/21/2025 09:37:52 01/22/20 25 01/21/2025 LIPID PROFI LE (MALE ) VLDL - direct 29.8 mg/dL Not Available [facility] [address] [address], [place], [address], 01/21/2025 09:37:52 01/22/20 25 01/21/2025 LIPID PROFI LE (MALE ) LDL - direct 75.2 mg/dL 0.0-13 0.0 Not Available [facility] [address] [facility] 1, [place], [address], 01/21/2025 09:37:52 01/22/20 25 01/21/2025 CMP (MALE ) glucose 119.0 mg/dL 60.0-9 9.0 high Not Available [facility] [address] [facility] 1, [place], [address], 01/21/2025 09:37:58 01/22/20 25 01/21/2025 CMP (MALE ) BUN (blood urea nitrogen) 14.0 mg/dL 10.0-2 6.0 Not Available [facility] [address] [facility] 1, [place], [address], 01/21/2025 09:37:58 01/22/20 25 01/21/2025 CMP (MALE ) creatinine (serum) 1.1 mg/dL 0.4-1. 5 Not Available [facility] [address] [facility] 1, [place], [address], 01/21/2025 09:37:58 01/22/20 25 01/21/2025 CMP (MALE ) BUN/creatini ne ratio 12.73 ratio Not Available [facility] [address] [facility] 1, [place], [address], 01/21/2025 09:37:58 01/22/20 25 01/21/2025 CMP (MALE ) eGFR calculated 68.1 Not Available [facility] [address] [facility] 1, [place], [address], 01/21/2025 09:37:58 01/22/20 25 01/21/2025 CMP (MALE ) total protein 7.4 g/dL 6.0-8. 5 Not Available [facility] [address] [facility] 1, [place], [address], 01/21/2025 09:37:58 01/22/20 25 01/21/2025 CMP (MALE ) total bilirubin 0.7 mg/dL 0.2-1. 3 Not Available [facility] [address] [facility] 1, [place], [address], 01/21/2025 09:37:58 01/22/20 25 01/21/2025 CMP (MALE ) albumin 4.5 g/dL 3.5-5. 5 Not Available [facility] [address] [facility] 1, [place], [address], 01/21/2025 09:37:58 01/22/2001/21/2025 CMP (MALE ) globulin 2.9 calc Not Available [facility] [address] [address], [place], [address], 01/21/2025 09:37:58 01/22/20 25 01/21/2025 CMP (MALE ) AST (SGOT) 30.0 U/L 0.0-46 .0 Not Available [facility] [address] [facility] 1, [place], [address], 01/21/2025 09:37:58 01/22/2001/21/2025 CMP (MALE ) altv (SGPT) 27.0 U/L 13.0-6 9.0 normal Not Available [facility] [address] [facility] 1, [place], [address], 01/21/2025 09:37:58 01/22/20 25 01/21/2025 CMP (MALE ) A/G ratio 1.6 ratio Not Available [facility] [address] [facility] 1, [place], [address], 01/21/2025 09:37:58 01/22/20 25 01/21/2025 CMP (MALE ) ALP phos 72.0 U/L 30.0-1 40.0 normal Not Available [facility] [address] [facility], [place], [address], 01/21/2025 09:37:58 01/22/2001/21/2025 CMP (MALE ) calcium 9.8 mg/dL 8.4-10 .5 Not Available [facility] [address] [facility] 1, [place], [address], 01/21/2025 09:37:58 01/22/2001/21/2025 CMP (MALE ) sodium 140.0 mmol/ L 136.0- 145.0 Not Available [facility] [address] [facility] 1, [place], [address], 01/21/2025 09:37:58 01/22/2001/21/2025 CMP (MALE ) potassium 4.7 mmol/ L 3.5-5. 1 Not Available [facility] [address] [facility] 1, [place], [address], 01/21/2025 09:37:58 01/22/2001/21/2025 CMP (MALE ) chloride 104.0 mmol/ L 98.0-1 10.0 normal Not Available [facility] [address] [facility] 1, [place], [address], 01/21/2025 09:37:58 01/22/2001/21/2025 CMP (MALE ) C02 29.0 mmol/ L 22.0-3 1.0 Not Available [facility] [address] [facility] 1, [place], [address], 01/21/2025 09:37:58 01/22/2001/21/2025 CMP (MALE ) anion gap 7.0 calc Not Available [facility] [address] [facility], [place], [address], 01/21/2025 09:37:58 01/22/20 25 01/21/2025 CMP (MALE ) osmolality 290.6 calc Not Available [facility] [address] [facility] 1, [place], [address], 01/21/2025 09:37:58 01/22/20 25 01/22/2025 IRON, TIBC AND NATHANIEL TIN PANEL iron, total 68 mcg/d L 50-180 normal Not Available [employer] [address] [address] [place], [address], 01/22/2025 08:31:50 01/22/20 25 01/22/2025 IRON, TIBC AND NATHANIEL TIN PANEL iron binding capacity 364 mcg/d L_(ca lc) 250-42 5 normal Not Available [employer] [address] [place], [address], 01/22/2025 08:31:50 01/22/20 25 01/22/2025 IRON, TIBC AND NATHANIEL TIN PANEL % saturation 19 %_(ca lc) 20-48 low Not Available [address], [address], 01/22/2025 08:31:50 01/22/20 25 01/22/2025 IRON, TIBC AND NATHANIEL TIN PANEL ferritin 60 NG/mL 24-380 normal Not Available [address], [address], 01/22/2025 08:31:50 01/22/20 25 01/22/2025 PSA, TOTAL PSA, total 0.35 NG/mL < or = 4.00 normal The total PSA value from this assay syste m is stand ardiz ed again st the WHO stand adriana. The test resul t will be appro ximat leighann 20% lower when denzel red to the equim olar- stand ardiz ed total PSA (Marte man Coult er). Denzel rison of seria l PSA resul ts shodarian d be inter prete d with this fact in mind. This test was perfo rmed using the Sieme ns chemi lumin escen t metho d. Value s obtai lamberto from diffe rent assay metho ds canno t be used inter park eably . PSA level s, regar dless of value , shoul d not be inter prete d as absol hector evide nce of the prese nce or absen ce of disea se. Not Available [facility] [address], [address], 01/22/2025 08:31:51 01/22/20 25 01/22/2025 VITAM IN B12/F OLATE , SERUM PANEL vitamin B12 1366 pg/mL 200-11 00 high Not Available [facility] [address], [address], 01/22/2025 08:31:52 01/22/2001/22/2025 VITAM IN B12/F OLATE , SERUM PANEL folate, serum 9.0 NG/mL normal Refer ence Range Low: <3.4 Borde rline : 3.4-5 .4 Myla l: >5.4 Not Available [address], [address], 01/22/2025 08:31:52 05/12/20 25 05/12/2025 URINA LYSIS WITH MICRO color YELLOW Not Available [facility] [address], [address], 05/12/2025 12:58:05 05/12/20 25 05/12/2025 URINA LYSIS WITH MICRO clarity CLEAR Not Available [facility] [address] [facility] 1, [place], [address], 05/12/2025 12:58:05 05/12/20 25 05/12/2025 URINA LYSIS WITH MICRO glu NEGATI VE Not Available [facility] [address], [address], 05/12/2025 12:58:05 05/12/2005/12/2025 URINA LYSIS WITH MICRO bili NEGATI VE Not Available [facility] [address], [place], [address], 05/12/2025 12:58:05 05/12/2005/12/2025 URINA LYSIS WITH MICRO ket NEGATI VE Not Available [facility] [address], [place], [address], 05/12/2025 12:58:05 05/12/2005/12/2025 URINA LYSIS WITH MICRO S.g 1.015 1.005- 1.025 Not Available [facility] [address], [place], [address], 05/12/2025 12:58:05 05/12/2005/12/2025 URINA LYSIS WITH MICRO pH 6.0 5.0-7. 0 Not Available [facility] [address], [place], [address], 05/12/2025 12:58:05 05/12/2005/12/2025 URINA LYSIS WITH MICRO pro 1+ high Not Available [facility] [address], [place], [address], 05/12/2025 12:58:05 05/12/2005/12/2025 URINA LYSIS WITH MICRO uro 0.2 E.U./D L Not Available [facility] [address], [place], [address], 05/12/2025 12:58:05 05/12/2005/12/2025 URINA LYSIS WITH MICRO nit NEGATI VE Not Available [facility] [address], [place], [address], 05/12/2025 12:58:05 05/12/2005/12/2025 URINA LYSIS WITH MICRO blo 1+ high Not Available [facility] [address] [facility] [address], [place], [address], 05/12/2025 12:58:05 05/12/2005/12/2025 URINA LYSIS WITH MICRO galilea 3+ high Not Available [facility] [address] [facility] [address], [place], [address], 05/12/2025 12:58:05 05/12/2005/12/2025 URINA LYSIS WITH MICRO WBC 40-50 abnormal Not Available [facility] [place] [address] [facility] [address], [place], [address], 05/12/2025 12:58:05 05/12/2005/12/2025 URINA LYSIS WITH MICRO RBC 10-12 abnormal Not Available [facility] [place] [place] [facility] [address] [facility] [address], [place], [address], 05/12/2025 12:58:05 05/12/2005/12/2025 URINA LYSIS WITH MICRO epi cells 1-2 Not Available [facility] [address] [facility] [address], [place], [address], 05/12/2025 12:58:05 05/12/2005/12/2025 URINA LYSIS WITH MICRO bacteria 1+ MIXED KAVYA abnormal Not Available [facility] [address] [facility] [address], [place], [address], 05/12/2025 12:58:05 05/12/2005/12/2025 URINA LYSIS WITH MICRO other NEGATI VE Not Available [facility] [address] [facility] [address], [place], [address], 05/12/2025 12:58:05 05/12/20 25 05/15/2025 CULTU RE, URINE , ROUTI NE culture, urine, routine SEE NOTE abnormal CULTU RE, URINE , ROUTI NE Micro Numbe r: [id number] Test Statu s: Final Speci men Sourc e: Urine Speci men Quali ty: Adequ ate Resul t: Great er than 100,0 00 CFU/m L of Esche ganesh a coli E.col i ----- ----- ----- - INT JOSÉ MANUEL AMOX/ CLAVU LANAT E S 4 AMP/S ULBAC RAMIREZ I 16 CEFAZ QUINTON R >=32 1 CEFEP MARY ELLEN R 16 CEFTA ZIDIM E S <=0.5 CEFTR IAXON E R >=64 CIPRO FLOXA DOUGLAS R >=4 GENTA MICIN R >=16 IMIPE NEM S <=0.2 5 LEVOF LOXAC IN R >=8 MEROP ENEM S <=0.2 5 NITRO FURAN TOIN S <=16 PIP/T AZOBA CTAM S <=4 TRIME THOPR IM/GILMORE LFA R >=320 S = Susce ptibl e I = Inter media te R = Resis tant NS = Not susce ptibl e SDD = Susce ptibl e Dose Depen dent * = Not Teste d NR = Not Repor santo NN = See Thera py Comme nts THERA PY COMME NTS Note 1: For uncom plica santo UTI cause d by E. coli, K. pneum oniae or P. mirab ilis: Cefaz quinton is susce ptibl e if JOSÉ MANUEL <32 mcg/m L and predi cts susce ptibl e to the oral agent s cefac payal, cefdi saba, cefpo doxim e, cefpr ozil, cefur oxime , cepha lexin and lorac arbef . Not Available [employer] [facility] [address] [place], [address], 05/15/2025 18:05:34 05/27/20 25 05/29/2025 CULTU RE, URINE , ROUTI NE culture, urine, routine SEE NOTE CULTU RE, URINE , ROUTI NE Micro Numbe r: [id number] Test Statu s: Final Speci men Sourc e: Urine Speci men Quali ty: Adequ ate Resul t: Less than 10,00 0 CFU/m L of singl e Gram posit sherri organ ism isola santo. No furth er testi ng will be perfo rmed. If clini john indic ated, recol lecti on using a metho d to minim ize conta minat ion, with promp t trans kelsie to Urine Cultu re Trans port Tube, is recom val d. Not Available [employer] [facility] [address] [place], [address], 05/29/2025 02:44:05 05/27/2005/27/2025 urina lysis , dipst ick Leukocytes Small Not Available [facility] ( [facility] [address] [place] [address], [address], 05/27/2025 09:08:23 05/27/20 25 05/27/2025 urina lysis , dipst ick Nitrite negati ve Not Available [facility] ([facility]) [address] [place] [address], [address], 05/27/2025 09:08:23 05/27/20 25 05/27/2025 urina lysis , dipst ick Urobilinogen .2 Not Available [facility] ([facility]) [address] [place] [address], [address], 05/27/2025 09:08:23 05/27/20 25 05/27/2025 urina lysis , dipst ick Protein 30 Not Available [facility] ([facility]) [address] [place] [address], [address], 05/27/2025 09:08:23 05/27/20 25 05/27/2025 urina lysis , dipst ick pH 6.5 Not Available [facility] ([facility]) [address] [place], [address], 05/27/2025 09:08:23 05/27/2005/27/2025 urina lysis , dipst ick Blood Small Not Available [facility] ([facility]) [address] [place], [address], 05/27/2025 09:08:23 05/27/2005/27/2025 urina lysis , dipst ick Specific Patrick 1.015 Not Available [facility] ( [facility]) [address] [place], [address], 05/27/2025 09:08:23 05/27/2005/27/2025 urina lysis , dipst ick Ketone Negati ve Not Available [facility] ([facility]) [address] [place], [address], 05/27/2025 09:08:23 05/27/2005/27/2025 urina lysis , dipst ick Bilirubin Negati ve Not Available [facility] ([facility]) [address] [place], [address], 05/27/2025 09:08:23 05/27/20 25 05/27/2025 urina lysis , dipst ick Glucose Negati ve Not Available [facility] ([facility]) [address] [place], [address], 05/27/2025 09:08:23 05/27/2005/27/2025 urina lysis , dipst ick Appearance Clear Not Available [facility] ( [facility] [address] [place], [address], 05/27/2025 09:08:23 05/27/20 25 05/27/2025 urina lysis , dipst ick Color Yellow Not Available [facility] ([facility]) [address] [place], [address], 05/27/2025 09:08:23 Result Notes None recorded. Problems Name Problem SNOMED Code Status Onset Date Resolution Date Notes Provider Name and Address Organization Details Recorded Time Acute sinusiti s 75917978 Completed 202003/30/2021 SINUSITI S - Status is Inactive ; Recorded 03/30/20 8:32AM by Veronica Cam CMT, Annotati on/Adden dum; Promoted ; acuity set as *; Not Available [facility] 3 03:08:33 Bipolar I disorder [id number] Completed 202003/30/2021 BIPOLAR AFFECTIV E DISORDER - Status is Inactive ; Recorded 03/30/20 9:36AM by DAVID Szymanski, Office Visit; Promoted ; acuity set as *; Not Available [facility] 3 03:08:33 Coronary atherosc lerosis [id number] Active 2021 CHUCK robles [facility] 5 08:24:40 [facility] hyperten andrews 14677137 Active 2022 CHUCK robles [facility] 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 5 08:39:16 Anxiety 99535448 Active 2022 CHUCK robles [facility] 5 08:24:40 Liver mass 758254219 Active 2022 Radha robles, [facility] 3 11:32:37 Hypergly cemia 06345526 Active 2022 CHUCK robles [facility] 5 08:24:40 Mass of urinary bladder 065645651 Active 2022 Radha Ruby null, [facility] 3 11:33:05 Myocardi al infarcti on 35231071 Active 2022 CHUCK robles, [facility] 5 08:24:40 Dysphagi a 29140275 Active 2022 Radha Ruby null, [facility] 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 3 11:34:23 Malignan t neoplasm of prostate [id number] Completed 202201/19/2025 CHUCK robles, [facility] 5 08:29:00 Hyperlip idemia 44406614 Active 2022 CHUCK robles, [facility] 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 5 10:01:19 Hyperten sive heart failure 75878708 Active 2024 CHUCK robles, [facility] 5 08:40:35 Congesti ve heart failure 67910928 Active 2024 CHUCK robles, [facility] 5 08:40:52 Chronic anemia 549769589 Active 2024 Tatiana Bradley MD [address] [place] [address], [phone] , [facility] [place] 10:01:24 History of malignan t neoplasm 319655941 Active 2024 Tatiana Bradley MD [address] [place], [address] , [facility] [place] 10:02:38 Problem Notes None recorded. Procedures Surgical History Date Name Laterality Status Provider Name and Address Organization Details Recorded Time 03/10/20 24 echocardiography completed CHUCK GONZALEZ [facility] [place] 01/19/2025 14:27:18 placement of stent in coronary artery completed [facility]/19/2025 09:37:30 insertion of carotid artery stent completed [facility]ika [facility] 01/19/2025 09:38:34 Imaging Results None recorded. Procedure Notes None [...] 6 HOURS NEEDED FOR NAUSEA OR VOMITING 01/19 completed Not Available Not Available Not Available prednison e 20 mg tablet TAKE 1 TABLET BY MOUTH EVERY DAY 01/19 completed Not Available Not Available Not Available prednison e 5 mg tablet TAKE 1 TABLET BY MOUTH DAILY 05/31 completed Not Available Not Available Not Available clopidogr el 75 mg tablet TAKE 1 TABLET BY MOUTH DAILY. MAKE AN APPOINTM ENT active Not Available Not Available No t Available ciproflox acin 500 mg tablet Take 1 tablet every 12 hours by oral route for 14 days. 2024 active Not Available Not Available Not Avai lable aspirin 81 mg tablet,de layed release daily active Not Available Not Available Not Available alprazola m 0.25 mg tablet TAKE 1 TABLET BY MOUTH TWICE DAILY NEEDED active Not Available Not Available No t Available nitroglyc ilir 0.4 mg sublingua l tablet DISSOLVE ONE TABLET UNDER TONGUE NEEDED FOR CHEST PAIN DIRECTED active Not Available Not Available No t [...] completed Not Available Not Available Not Available cefdinir 300 mg capsule Take 1 capsule every 12 hours by oral route with meal(s) for 7 days. 05/26 completed Not Available Not Available Not Available lisinopri l 2.5 mg tablet TAKE 1 TABLET BY MOUTH TWICE DAILY 05/31 completed Not Available Not Available Not Available amoxicill in 875 mg-potass ium clavulana te 125 mg tablet TAKE 1 TABLET BY MOUTH EVERY 12 HOURS active Not Available Not Available No t Available Ventolin HFA 90 mcg/actua tion aerosol [...] tablet TAKE 1 TABLET BY MOUTH AT BEDTIME. MAKE AN APPOINTM ENT FOR FURTHER REFILLS active Not Available Not Available No t Available bupropion HCl XL 150 mg 24 hr tablet, extended release Take 1 tablet every day by oral route. 03/30 completed Not Available Not Available Not Available nitrofura ntoin monohydra te/macroc rystals 100 mg capsule TAKE 1 CAPSULE BY MOUTH EVERY 12 HOURS FOR 7 DAYS active Not Available Not Available No t Available nystatin 994092 UNIT OINTMENT ,BID 03/30 completed Not Available Not Available Not Available alprazola m two times daily, as needed 07/01 completed Recorded 03/12/20 22 2:13PM by Bryn Sandoval DO, Office Visit; Refill Quantity : 10; Tablet; Not Available Not Available Not Available lisinopri l daily 12/29 completed cs/smf; 39397; Recorded 07/31/19 22 7:59AM by Komal Aragon (Authori zed through Bryn Sandoval DO), Office Visit; Refill Quantity : 30; Tablet; Not Available Not Available Not Available Crestor daily 12/29 completed 44825; Recorded 08/31/19 23 11:17AM by Liss Chaparro (Authori zed through Hernesto Stanley MD), Refill Request; Refill Quantity : 90; Tablet; Not Available Not Available Not Available aspirin 81 mg capsule Take 1 capsule every day by oral route. 07/01 completed Not Available Not Available Not Available COVID-19 At-Home Test kit TEST DIRECTED TODAY 01/19 completed Not Available Not Available Not Available Vitals Date Recorded Body height Body mass index (BMI) Body weight Oxygen saturation Oxygen saturation in Arterial blood by Pulse oximetry Heart rate Respiratory rate Body temperature Systolic And Diastolic Provider Name and Address Organization Details Last Updated DateTime 5 187.96 cm 24.8 kg/m2 72276.3 3 g 95 % 95 % 60 /min 20 /min 96.1 [degF] 118/74 mm[Hg] Chante Nam [facility] 5 09:32:34 Date Recorded Body height Body mass index (BMI) Body weight Heart rate Oxygen saturation Oxygen saturation in Arterial blood by Pulse oximetry Body temperature Systolic And Diastolic Provider Name and Address Organization Details Last Updated DateTime 5 187.96 cm 25.2 kg/m2 50110.1 g 74 /min 97 % 97 % 98.1 [degF] 136/82 mm[Hg] Beverly Chase [facility] 5 12:48:19 Date Recorded Body height Body mass index (BMI) Body weight Body temperature Heart rate Oxygen saturation Oxygen saturation in Arterial blood by Pulse oximetry Systolic And Diastolic Provider Name and Address Organization Details Last Updated DateTime 5 187.96 cm 25.2 kg/m2 41811.1 g 98.1 [degF] 73 /min 96 % 96 % 136/72 mm[Hg] Beverly Chase [facility] 5 09:17:33 Date Recorded Body height Body mass index (BMI) Body weight Body temperature Heart rate Oxygen saturation Oxygen saturation in Arterial blood by Pulse oximetry Systolic And Diastolic Provider Name and Address Organization Details Last Updated DateTime 5 187.96 cm 24.9 kg/m2 07569.9 2 g 97.1 [degF] 77 /min 94 % 94 % 126/62 mm[Hg] Lucy Jean Baptisteoch [facility] 5 09:55:09 Date Recorded Body height Body mass index (BMI) Body weight Heart rate Oxygen saturation Oxygen saturation in Arterial blood by Pulse oximetry Systolic And Diastolic Provider Name and Address Organization Details Last Updated DateTime 4 187.96 cm 10.5 kg/m2 84054.5 7 g 82 /min 90 % 90 % 142/70 mm[Hg] ROJELIO KIAN [facility] 4 12:07:06 Social History Question Answer Notes LastModified by [employer] Funding Details LastModified Time Tobacco Smoking Status Never Smoker Chante robles [facility] 01/19/2025 09:36:24 Are You Blind Or Do You Have Difficulty Seeing? No [email or web address] Information not available 10/03/2022 Are You Deaf Or Do You Have Serious Difficulty Hearing? No Information not available 10/03/2022 What Was The Date Of Your Most Recent Tobacco Screening? 05/27/2025 [email or web address] Information not available 05/27/2025 Do You Have Difficulty Walking Or Climbing Stairs? No [email or web address] Information not available 10/03/2022 Sex: Unknown Functional Status Question Answer Note LastModified by [employer] Funding Details LastModified Time Do you use any illicit or recreational drugs? No Information not available 01/19/2025 What is your level of alcohol consumption? None [email or web address] Information not available 01/19/2025 Are you able to walk independently without assistance or assistive devices? YESWOREST [email or web address] Information not available 10/03/2022 Do you have difficulty doing errands alone? No [email or web address] Information not available 10/03/2022 Are you able to care for yourself independently? Yes [email or web address] Information not available 10/03/2022 Do you have difficulty dressing, bathing, grooming, or toileting? No [email or web address] Information not available 10/03/2022 Mental Status Question Answer Note LastModified by Organization D etails LastModified Time Do you have difficulty concentrating, remembering or making decisions? No Information no t available 10/03/2022 Family History Relationship Description Onset Age of this Age Resolved Age Notes LastModified by Organization Details LastModified Time Mother Anxiety [email or web address] Not available 0 10/29/2024 08:35:10 Mother Hypertensive disorder [email or web address] Not available 2024 08:35:22 Medical History Condition Response Coronary Artery Disease N Gout N Kidney Stones N Hyperthyroidism N Hypothyroidism N Depression N COPD N Anemia N MRSA exposure N Difficulty Swallowing N Anxiety Disorder N Diabetes N Meniere's disease N Obesity N Arthritis N Mental Disorder [...] Diagnosis SNOMED-CT Code Diagnosis ICD10 Code Diagnosis IMO Codes Diagnosis Note [id number] Bryn Sandoval DO [facility]) [address] [place] [address] 10/03/2022 10:19:09 10/09/2022 18:20:00 Anxiety 69795952 F41.9 Prostate s pecific antigen above reference range 910148594 R97.20 Essential hypertension 77712374 I10 Presbyesophagus 54464020 4 K22.89 [id number] Bryn Sandoval DO [facility] ([facility]) [address] [place] [address] 11/09/2022 10:43:31 11/09/2022 19:21:44 Malignant neoplasm of prostate 157127916 C61 MRI reviewed showing stage 4 [id number] Bryn Sandoval DO [facility] ([facility]) [address] [place] [phone] 12/26/2022 15:29:39 12/26/2022 20:48:34 Hyperlipidemia 61520289 E78.00 Malignant neoplasm of prostate 911375338 C61 Major depr essive disorder 354188302 F32.9 [id number] Bryn DO Lori [facility] ([facility]) [address] [place], [place] [phone] 02/11/2023 11:05:32 02/11/2023 20:02:23 Anxiety 16336357 F41.9 Major depr essive disorder 586059382 F32.9 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 417005896 C61 [id number] Bryn Sandoval DO [facility] ([facility]) [address] [place] [address] 07/01/2023 08:38:59 07/01/2023 09:31:48 Essential hypertension 40347381 I10 Hyperlipidemia 04242239 E78.00 Malignant neoplasm of prostate 354525144 C61 [id number] Bryn DO Lori [facility] ([facility]) [address] [place] [address] 07/01/2023 13:52:58 07/01/2023 16:40:16 Essential hypertension 79974925 I10 Active or passive immunization 902685047 Z23 Adult heal th examination 683039214 Z00.01 Anxiety 84080824 F41.9 Change in skin lesion 39 1763692 L98.9 [id number] Bryn Sandoval DO [facility] ([facility]) [address] [place] [address] 12/30/2023 11:38:31 12/30/2023 17:06:23 Essential hypertension 83445284 I10 [id number] Byrn Sandoval DO [facility] ([facility]) [address] [place] [address] 03/04/2024 10:11:00 03/04/2024 10:43:37 Malignant neoplasm of prostate 986566433 C61 Hypertensive disorder 38 711619 I10 Anxiety 99957223 F41.9 Acute bact erial bronchitis 612769564 J20.9 [id number] Bryn SandovalDO [facility] ([facility]) [address] [place] [address] 5 03/30/2024 14:23:02 03/30/2024 15:41:34 Coronary arteriosclerosis 02625612 I25.10 Stented co ronary artery 582640852 Z95.5 [id number] Bryn DO Loir [facility]) [address] [place] [address] 5 06/08/2024 11:14:56 06/08/2024 12:20:57 Middle ear effusion 3037171647 H74.8X9 Anxiety 58896444 F41.9 [id number] Bryn SandovalDO [facility]) [address] [place] [address] 5 07/01/2024 10:05:15 07/01/2024 11:36:56 Seborrheic keratosis 617928217 L82.1 Coronary arteriosclerosis 29015560 I25.10 Hyperglycemia 37832109 R 73.9 [id number] Bryn SandovalDO [facility] ([facility]) [address] [place] [address] 5 07/06/2024 12:00:36 07/06/2024 12:41:23 Hyperglycemia 26254065 R73.9 Essential hypertension 59059562 I10 [id number] Tatiana Bradley MD [facility] ([facility]) [address] [place] [address] 5 01/19/2025 09:22:28 01/19/2025 11:58:41 Malignant neoplasm of prostate 332498047 C61 Hyperlipidemia 13774491 E78.00 Anxiety 61468452 F41.9 Essential hypertension 74263919 I10 Metastatic malignant neoplasm to bone 38788715 C79.51 C61 8307003 60915403 Hypertensi ve heart failure 35238374 I11.0 743118 Coronary atherosclerosis 603374242 I25.119 Myocardial infarction 22 640204 I21.9 Hyperglycemia 79501131 R 73.9 Chronic anemia 192990095 D64.9 100107 Chronic sy stolic heart failure 082862368 I50.22 045897 History of malignant neoplasm 203838825 Z85.51 [id number] PAMELLA JACOB APRN [facility] ([facility]) [address] [place] [address] 05/12/2025 12:37:37 05/12/2025 14:28:11 Dysuria 65899817 R30.0 16615 Acute urin patti tract infection 147820874 N39.0 326638 [id number] DAVID WELLS [facility] ([facility]) [address] [place] [phone] 05/27/2025 09:03:43 05/27/2025 13:47:42 Dysuria 78302864 R30.0 97889 Discussed to take antibiotic as prescribed until completedU rine culture ordered - will notify of any resultsEdu cated patient on increasing PO fluids of water, decreasing caffeine (coffee) and sugary drinks. Discussed if developmen t of abdominal pain, flank pain, fever, vomiting, worsening symptoms return to walk-in, PCP or ED for re-evaluat ion. Return to clinic if any changes, any worsening, any concernsPa tient verbalized understand ing of plan. [id number] Tatiana Bradley MD [facility]) [address] [place] [phone] 05/31/2025 09:30:20 05/31/2025 10:27:09 Dysuria 06171053 R30.0 66635 Recurrent urinary tract infection 060990613 N39.0 827442 Health Concerns Section Related Observation LastModified by Organization Detai ls LastModified Time None Recorded Concern Status LastModified by Organization Details LastModified Time None Recorded Advance Directives Directive None Recorded Payers Insurance Date Sequence Insurance Name Policy Number Policy Laughlin Covered Member ID Laughlin Member ID Guarantor Name 05/27/2025 1 [facility] (MEDICARE REPLACEMENT/A DVANTAGE - PPO) [id number] Bob Barreto [id number] Bob Barreto Notes Date Note Type Note Provider Name and Address Organization Details Recorded Time 07/06/2024 text/html Generalized Anxi ety DisorderReported by PatientHPIFor associated symptoms, patient reportsexcess anxiety. For severity, patient reportsmoderate. For context, patient reportsdepression.ROS as noted in the HPI Bryn SandovalDO [address] [place], [address], [facility] 07/06/2024 12:23:03 01/19/2025 text/html Annual WellnessReported by PatientSocial/Behavior al HistoryFor diet and nutrition, patient reportshealthy diet. For fracture risk, patient reportsno history of fractures. For physical activity, patient reportsexercises on a regular basisandgood physical condition. For additional lifestyle factors, patient reportsno tobacco useandno alcohol intake.Mental Status:For depression risk, patient reportshistory of depressionbut reportsno loss of interest in activities.Functional AbilityFor hearing, patient reportsloss of hearing in one ear only(left ears). For vision, patient reportsno vision problems. establish care, he had a stent placed about 8 months he would like to get off his plavix? we discussed risks of this and benefits of plavix. he understands his stent may clot abruptly if he does not take both his asa and plavix every day every time. he understand and will continue. he will see cardiology next week. Tatiana Bradley MD [address] [place], [address], [facility] 01/19/2025 10:11:24 05/12/2025 text/html walk in ptPt is having burning and frequency for over a week, he is currently on cipro 500mg BID x10 days. He states he on day 7 of antibiotics. PAMELLA JACOB, DIOR [address] [place], [address], [facility] 05/12/2025 14:06:15 05/27/2025 text/html ROS as noted in the HPI walk in ptPt has urinary burning, frequency and urgency that started last night. Took some antibiotics from previous discontinued treatment. Most recently on Augmentin which he stopped earlier this week. DAVID WELLS [address] [place], [address], [facility] 05/27/2025 13:37:58 05/31/2025 text/html ROS as noted in the HPI Pt is here to follow up on a UTI. Note from walk-in visit: Pt has urinary burning, frequency and urgency that started last night. Took some antibiotics from previous discontinued treatment. Most recently on Augmentin which he stopped earlier this week. He was prescribed macrobid and ciprofloxacin. He states he has been on 3-4 different antibiotics in the last 3 weeks. He is still taking ciprofloxacin. He is still having urinary frequency, burning, and urgency. He states he has been running a fever of 99-101. He has not ran a temperature for 2 days. No blood in urine or abdominal pain. He states the cipro has helped him a lot. his sx's started shortly after his recent cytoscopy (several weeks to a month ago) he keeps changing his antibiotic back and forth and did not complete his original cipro. this he resumed a few days ago. he did complete the augmentin. he quit the macrobid after a few days. so, concern for multi-resistant infection. will re-culture. Tatiana Bradley MD [address] [place] [address], [phone], [facility] [place] 05/31/2025 10:27:08
--- OUTSIDE RECORDS SUMMARY | 2025-06-02 05:30 | XMS_ITS | Clinical Summary ---
Author Organization [facility] Address [address] Attn: Epic Prelude ADT LYDIA JONES [address] Care Team Providers Care Money Laundering Investigator Name Role Phone BlakeJeramie DO Primary Care Provider Allergies No known [...] Problem Noted Date Diagnosed Date Atherosclerosis of [place] coronary artery of tomy sherri heart 07/08/2015 [...] on file Legal Sex Male 6:30 AM STOCK TRACER Gender Identity Not on file Sexual Orientation Not on file Last Filed Vital Signs Vital Sign Reading Time Taken Comments Blood Pressure 113/78 06/27/2018 8:54 AM STOCK TRACER Pulse 74 06/27/2018 8:54 AM STOCK TRACER Temperature 36.9 C (98.4 F) 06/27/2018 7:19 AM STOCK TRACER Respiratory Rate 18 06/27/2018 8:49 AM STOCK TRACER Oxygen Saturation - - Inhaled Oxygen Concentration - - Weight 86.2 kg (190 lb) 06/25/2018 9:52 AM STOCK TRACER Height 188 cm (6' 2 ) 06/25/2018 9:52 AM STOCK TRACER Body Mass Index 24.39 06/25/2018 9:52 AM STOCK TRACER Plan of Treatment Health Maintenance Due Date [...] Comments COLONOSCOPY REPORT Routine 06/27/2018 8:33 AM STOCK TRACER from Last 3 Months or Most Recently Relevant to Health Maintenance Results * COLONOSCOPY REPORT (06/27/2018 8:33 AM STOCK TRACER) 06/27/2018 8:33 AM STOCK TRACER Gm Isbell MD GI PROCEDURE ORDERABL ES Final Result [facility] from Last 3 Months or Most Recently Relevant to Health Maintenance Care Teams Money Laundering Investigator Relationship Specialty Start Date End Date Jeramie Lozano DO [facility] [place] [address] PCP - General Family Practice 02/21/12
--- OUTSIDE RECORDS SUMMARY | 2025-06-02 05:30 | XMS_ITS | Clinical Summary ---
Author Organization [facility] Address [address] [place] [address] Phone Care Team Providers Care Monotype Operator Name Role Phone LozanoJeramie hammonds DO Primary [...] Diagnosed Date Precordial pain 07/08/2015 Atherosclerosis of [place] coronary artery of tomy sherri heart 07/08/2015 Overview (07/08/2015): PCI to [...] on file Legal Sex Male 6:47 AM CHILD CARE CENTRE DIRECTOR Gender Identity Not on file Sexual Orientation Not on file Last Filed Vital Signs Vital Sign Reading Time Taken Comments Blood Pressure 113/78 06/27/2018 8:54 AM CHILD CARE CENTRE DIRECTOR Pulse 74 06/27/2018 8:54 AM CHILD CARE CENTRE DIRECTOR Temperature 36.9 C (98.4 F) 06/27/2018 7:19 AM CHILD CARE CENTRE DIRECTOR Respiratory Rate 18 06/27/2018 8:49 AM CHILD CARE CENTRE DIRECTOR Oxygen Saturation 97% 06/27/2018 8:54 AM CHILD CARE CENTRE DIRECTOR Inhaled Oxygen Concentration - - Weight 86.2 kg (190 lb) 06/25/2018 9:52 AM CHILD CARE CENTRE DIRECTOR Height 188 cm (6' 2 ) 06/25/2018 9:52 AM CHILD CARE CENTRE DIRECTOR Body Mass Index 24.39 06/25/2018 9:52 AM CHILD CARE CENTRE DIRECTOR Plan of Treatment Health Maintenance Due Date [...] Comments COLONOSCOPY REPORT 06/27/2018 8: 33 AM CHILD CARE CENTRE DIRECTOR from Last 3 Months or Most Recently Relevant to Health Maintenance Results * COLONOSCOPY REPORT (06/27/2018 8:33 AM CHILD CARE CENTRE DIRECTOR) Narrative Procedure Note Gm Isbell MD - 06/27/2018 8:33 AM CST [facility] GI Patient Name: Bob [...] No immediate complications. Procedure: Pre-Anesthesia Assessment: - [place] Protocol: - Pre-procedure Verification: Prior to the [...] was done by the physician, nurse and food safety technician using the patient's name and date. [...] Scope Out: 8:30:48 AM [address] [place], [place] Gm Isbell MD GI PROCEDURE ORDERABL ES Final Result from Last 3 Months or Most Recently Relevant to Health Maintenance [place] [address] [place] [address] Advance Directives For more information, please contact: [phone] * Full Code (Latest Code Status on File) Date Activated Date Inactivated Comments 06/27/2018 7:25 AM 06/27/2018 11:08 AM * Full Code Date Activated Date Inactivated Comments 07/08/2015 6:59 PM 07/09/2015 7:34 PM * Full Code Date Activated Date Inactivated Comments 03/31/2012 9:23 AM 03/31/2012 12:46 PM Care Teams Monotype Operator Relationship Specialty Start Date End Date Jeramie Lozano DO [address] [place] [address] PCP - General Family Practice 02/21/12
--- OUTSIDE RECORDS SUMMARY | 2025-06-02 05:30 | XMS_ITS | Continuity of Care Document ---
Author Organization LYDIA Stearns [facility] Radha, [place], [facility] ([facility]) Address [address] [place] [address] Care Team Providers Care Tie Inspector Name Role Phone TATIANA BRADLEY Primary Care [...] he will go immediately to the ER. [email or web address] Not available 05/31/2025 10:26:59 Plan of Treatment Reminders Order Date Submit Date Provider Last Modified By Organization Details Last Modified Time Details Appointments RECHECK 15 2024 08:45A M Tatiana Bradley MD Not available Not available Not available LAB 2024 09:40A M LAB Not available Not available Not available Lab urinalysi s, complete 2024 025 [facility], [address], [place], [address], 05/31/2025 11:02:58 culture, urine 2024 025 [employer] [facility], [address] [facility] [address], [place], [address], 05/31/2025 10:09:19 Referral None recorded. Procedures measureme nt of post-void ing residual urine and/or bladder capacity (PROC) [address], [address], [facility], [place], [address], 05/31/2025 11:48:39 Surgeries None recorded. Imaging US, kidney [address], [address] [facility], [place], [address], 05/31/2025 11:48:15 Medication Orders ciproflox acin 500 mg tablet 2024 [id number], [address], [place], [place], [id number], 05/31/2025 10:22:45 Patient TargetsNo targets recorded. Patient InstructionsNo instructions recorded. Reason for Referral None Reported. Results Created Date Observation Date Name Description Value Unit Range Abnormal Flag Note LastModifiedBy Organization Detail LastModifiedTime 05/12/2005/12/2025 URINA LYSIS WITH MICRO color YELLOW Not Available [facility] [address] [facility] [address], [place], [address], 05/12/2025 12:58:05 05/12/2005/12/2025 URINA LYSIS WITH MICRO clarity CLEAR Not Available [facility] [address] [facility] [address], [place], [address], 05/12/2025 12:58:05 05/12/2005/12/2025 URINA LYSIS WITH MICRO glu NEGATI VE Not Available [facility] [address] [facility] [address], [place], [address], 05/12/2025 12:58:05 05/12/20 25 05/12/2025 URINA LYSIS WITH MICRO bili NEGATI VE Not Available [facility] [address], [place], [address], 05/12/2025 12:58:05 05/12/2005/12/2025 URINA LYSIS WITH MICRO ket NEGATI VE Not Available [facility] [address], [place], [address], 05/12/2025 12:58:05 05/12/2005/12/2025 URINA LYSIS WITH MICRO S.g 1.015 1.005- 1.025 Not Available [facility] [address], [place], [address], 05/12/2025 12:58:05 05/12/2005/12/2025 URINA LYSIS WITH MICRO pH 6.0 5.0-7. 0 Not Available [facility] [address], [place], [address], 05/12/2025 12:58:05 05/12/2005/12/2025 URINA LYSIS WITH MICRO pro 1+ high Not Available [facility] [address], [place], [address], 05/12/2025 12:58:05 05/12/20 25 05/12/2025 URINA LYSIS WITH MICRO uro 0.2 E.U./D L Not Available [facility] [address], [place], [address], 05/12/2025 12:58:05 05/12/2005/12/2025 URINA LYSIS WITH MICRO nit NEGATI VE Not Available [facility] [address], [place], [address], 05/12/2025 12:58:05 05/12/20 25 05/12/2025 URINA LYSIS WITH MICRO blo 1+ high Not Available [facility] [address] [facility] [address], [place], [address], 05/12/2025 12:58:05 05/12/2005/12/2025 URINA LYSIS WITH MICRO galilea 3+ high Not Available [facility] [address] [facility] [address], [place], [address], 05/12/2025 12:58:05 05/12/2005/12/2025 URINA LYSIS WITH MICRO WBC 40-50 abnormal Not Available [facility] [address] [facility] [address], [place], [address], 05/12/2025 12:58:05 05/12/2005/12/2025 URINA LYSIS WITH MICRO RBC 10-12 abnormal Not Available [facility] [address] [facility] [address], [place], [address], 05/12/2025 12:58:05 05/12/2005/12/2025 URINA LYSIS WITH MICRO epi cells 1-2 Not Available [facility] [address] [facility] [address], [place], [address], 05/12/2025 12:58:05 05/12/2005/12/2025 URINA LYSIS WITH MICRO bacteria 1+ MIXED KAVYA abnormal Not Available [facility] [address] [facility] [address], [place], [address], 05/12/2025 12:58:05 05/12/2005/12/2025 URINA LYSIS WITH MICRO other NEGATI VE Not Available [facility] [address] [facility] [address], [place], [address], 05/12/2025 12:58:05 05/12/2005/15/2025 CULTU RE, URINE , ROUTI NE culture, urine, routine SEE NOTE abnormal CULTU RE, URINE , ROUTI NE Micro Numbe r: [id number] Test Statu s: Final Speci men [...] lexin and lorac arbef . Not Available [facility] [address] [place], [address], 05/15/2025 18:05:34 05/27/20 25 05/29/2025 CULTU RE, URINE , ROUTI NE culture, urine, routine SEE NOTE CULTU RE, URINE , ROUTI NE Micro Numbe r: [id number] Test Statu s: Final Speci men [...] Tube, is recom val d. Not Available [facility] [address] [place], [address], 05/29/2025 02:44:05 05/27/2005/27/2025 urina lysis , dipst ick Leukocytes Small Not Available [facility] ([facility]) [address] [place] [address], [phone], 05/27/2025 09:08:23 05/27/2005/27/2025 urina lysis , dipst ick Nitrite negati ve Not Available [facility] ([facility]) [address] [place] [address], [address], 05/27/2025 09:08:23 05/27/20 25 05/27/2025 urina lysis , dipst ick Urobilinogen .2 Not Available [facility] ([facility]) [address] [place] [address], [address], 05/27/2025 09:08:23 05/27/20 25 05/27/2025 urina lysis , dipst ick Protein 30 Not Available [facility] ([facility]) [address] [place] [address], [address], 05/27/2025 09:08:23 05/27/20 25 05/27/2025 urina lysis , dipst ick pH 6.5 Not Available [facility] ([facility]) [address] [place] [address], [address], 05/27/2025 09:08:23 05/27/20 25 05/27/2025 urina lysis , dipst ick Blood Small Not Available [facility] ([facility]) [address] [place], [address], 05/27/2025 09:08:23 05/27/2005/27/2025 urina lysis , dipst ick Specific Hubertus 1.015 Not Available [facility] ( [facility]) [address] [place], [address], 05/27/2025 09:08:23 05/27/20 25 05/27/2025 urina lysis , dipst ick Ketone Negati ve Not Available [facility] ([facility]) [address] [place], [address], 05/27/2025 09:08:23 05/27/20 25 05/27/2025 urina lysis , dipst ick Bilirubin Negati ve Not Available [facility] ([facility]) [address] [place], [address], 05/27/2025 09:08:23 05/27/20 25 05/27/2025 urina lysis , dipst ick Glucose Negati ve Not Available [facility] ([facility]) [address] [place], [address], 05/27/2025 09:08:23 05/27/20 25 05/27/2025 urina lysis , dipst ick Appearance Clear Not Available [facility] ([facility]) [address] [place], [address], 05/27/2025 09:08:23 05/27/2005/27/2025 urina lysis , dipst ick Color Yellow Not Available [facility] ([facility]) [address] [place], [address], 05/27/2025 09:08:23 Result Notes None recorded. Problems Name Problem SNOMED Code Status Onset Date Resolution Date Notes Provider Name and Address Organization Details Recorded Time Acute sinusiti s 76471448 Completed 202003/30/2021 SINUSITI S - Status is Inactive ; Recorded 03/30/20 8:32AM by Veronica Cam CMT, Annotati on/Emily dum; Promoted ; acuity set as *; Not Available [facility] 3 03:08:33 Bipolar I disorder 465058701 Completed 202003/30/2021 BIPOLAR AFFECTIV E DISORDER - Status is Inactive ; Recorded 03/30/20 9:36AM by DAVID Szymanski, Office Visit; Promoted ; acuity set as *; Not Available [facility] 3 03:08:33 Coronary atherosc lerosis 224880103 [facility] 08:24[facility]40 [facility] l hyperten andrews 28889060 Active 2022 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 08:39:16 Anxiety 10699512 Active 2022 [facility] 08:24:40 Liver mass 293252461 Active 2022 Radha robles [facility] 3 11:32:37 Hypergly cemia 45757712 Active 2022 [facility] 08:24:40 Mass of urinary bladder 036087072 Active 2022 Rad[facility] robles [facility] 3 11:33:05 Myocardi al infarcti on 24364761 Active 2022 CHUCK GONZALEZ null, [facility] 5 08:24:40 Dysphagi a 40656512 Active 2022 Radha Ruby null, [facility] 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 3 11:34:23 Malignan t neoplasm of prostate 833327758 Completed 202201/19/2025 CHUCK robles, [facility] 5 08:29:00 Hyperlip idemia 63020183 Active 2022 CHUCK robles, [facility] 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 5 10:01:19 Hyperten sive heart failure 32735370 Active 2024 CHUCK robles, [facility] 5 08:40:35 Congesti ve heart failure 71845836 Active 2024 CHUCK robles, [facility] 5 08:40:52 Chronic anemia 787997860 Active 2024 Tatiana Bradley MD [address] [place] [address], [address] , [facility] 5 10:01:24 History of malignan t neoplasm 063820399 Active 2024 Tatiana Bradley MD [address] [place], [address] , [facility] 10:02:38 Problem Notes None recorded. Procedures Surgical History Date Name Laterality Status Provider Name and Address Organization Details Recorded Time 03/10/20 24 echocardiography completed [facility]/19/2025 14:27:18 placement of stent in coronary artery completed [facility]ante [facility] 01/19/2025 09:37:30 insertion of carotid artery stent completed [facility]ika [facility] 01/19/2025 09:38:34 Imaging Results None recorded. Procedure [...] Available Not Available No t Available nystatin 418565 UNIT OINTMENT ,BID 03/30 completed Not Available Not Available Not Available alprazola m two times daily, as needed 07/01 completed Recorded 03/12/20 22 2:13PM by Bryn Sandoval DO, Office Visit; Refill Quantity : 10; Tablet; Not Available Not Available Not Available lisinopri l daily 12/29 completed cs/smf; 79323; Recorded 07/31/19 22 7:59AM by Komal Aragon (Authori maryam through Bryn Sandoval DO), Office Visit; Refill Quantity : 30; Tablet; Not Available Not Available Not Available Crestor daily 12/29 completed 61144; Recorded 08/31/19 23 11:17AM by Liss Chaparro (Authori frederickd through Hernesto Stanley MD), Refill Request; Refill [...] Updated DateTime 5 187.96 cm 24.9 kg/m2 22778.9 2 g 97.1 [degF] 77 /min 94 % 94 % 126/62 mm[Hg] [address] [facility] 09:55:09 Social History Question Answer Notes LastModified by TreatFeed Details LastModified Time Tobacco Smoking Status Never Smoker Chante robles [facility] 01/19/2025 09:36:24 Are You Blind Or Do You Have Difficulty Seeing? No [email or web address] Information not available 10/03/2022 Are You Deaf Or Do You Have Serious Difficulty Hearing? No [email or web address] Information not available 10/03/2022 What Was The Date Of Your Most Recent Tobacco Screening? 05/27/2025 [email or web address] Information not available 05/27/2025 Do You Have Difficulty Walking Or Climbing Stairs? No [email or web address] Information not available 10/03/2022 Sex: Unknown Functional Status Question Answer Note LastModified by TreatFeed Details LastModified Time Do you use any illicit or recreational drugs? No [email or web address] Information not available 01/19/2025 What is your level of alcohol consumption? None [email or web address] Information not available 01/19/2025 Are you able to walk independently without assistance or assistive devices? YESWOREST [email or web address] Information not available 10/03/2022 Do you have difficulty doing errands alone? No [email or web address] Information not available 10/03/2022 Are you able to care for yourself independently? Yes [email or web address] Information not available 10/03/2022 Do you have difficulty dressing, bathing, grooming, or toileting? No [email or web address] Information not available 10/03/2022 Mental Status Question [...] N Hypothyroidism N Depression N COPD N Difficulty Swallowing N Anxiety Disorder N Meniere's disease N Obesity N Arthritis N Mental Disorder N Cancer Y Stroke N High Cholesterol N Liver Disease N Fibromyalgia N Kidney Disease N Anemia N MRSA exposure N Diabetes N Tuberculosis N AIDS/HIV N Congestive Heart Failure (CHF) N Diverticulitis N Asthma N Reflux/GERD N Heart Disease N Pulmonary Embolism N Chronic Ear Infections N Hypertension N Osteoporosis N Past Encounters Encounter ID Performer Location Encounter Start Date Encounter Closed Date Diagnosis/Indication Diagnosis SNOMED-CT Code Diagnosis ICD10 Code Diagnosis IMO Codes Diagnosis Note [id number] PAMELLA JACOB APRN [facility] ([facility]) [address] [place] [address] 05/12/2025 12:37:37 05/12/2025 14:28:11 Dysuria 19571491 R30.0 38593 Acute urin patti tract infection 977878156 N39.0 916657 [id number] DAVID WELLS [facility] ([facility]) [address] [place] [address] 05/27/2025 09:03:43 05/27/2025 13:47:42 Dysuria 17346917 R30.0 42926 Discussed to take antibiotic as prescribed until [...] concernsPa tient verbalized understand ing of plan. [id number] Tatiana Bradley MD [facility] ([facility]) [address] [place] [address] 05/31/2025 09:30:20 05/31/2025 10:27:09 Dysuria 97465989 R30.0 94646 Recurrent urinary tract infection 232699232 N39.0 372104 Health Concerns Section Related Observation LastModified by Organization Detai ls LastModified Time None Recorded Concern Status LastModified by Organization Details LastModified Time None Recorded Payers Encounter Date Sequence Insurance Name Policy Number Policy Laughlin Covered Member ID Laughlin Member ID Guarantor Name 05/31/[address] 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 Tatiana Bradley MD [address] [place] [address], [phone], [facility], [place] 05/31/2025 10:27:08
--- OUTSIDE RECORDS SUMMARY | 2025-06-02 05:30 | XMS_ITS | Continuity of Care Document ---
Author Organization [facility] Portillo Stearns [facility] Radha, [place], [facility] ([facility]) Address [address] [place] [address] Care Team Providers Care Toe Lining Closer Name Role Phone TATIANA BRADLEY Primary Care Provider Unavailabl e Assessment No assessment recorded. Plan of Treatment Reminders Order Date Submit Date Provider Last Modified By Organization Details Last Modified Time Details Appointments RECHECK 15 2024 08:45A M Tatiana Bradley MD Not available Not available Not available LAB 2024 09:40A M LAB Not available Not available Not available Lab culture, urine 2024 [place] [facility], [address] [place] [address], [facility] [address] [place], [address], 05/29/2025 02:44:05 urinalysi s, dipstick 2024 025 [facility] ([facility]), [address] [place], [address], 05/27/2025 09:21:56 Referral None recorded. Procedures None recorded. Surgeries None recorded. Imaging None recorded. Medication Orders nitrofura ntoin monohydra te/macroc rystals 100 mg capsule 2024 025 [place] [id number], [address], [place], [place], [id number], 05/27/2025 09:28:24 Patient TargetsNo targets recorded. Patient InstructionsNo instructions recorded. Reason for Referral None Reported. Results Created Date Observation Date Name Description Value Unit Range Abnormal Flag Note LastModifiedBy Organization Detail LastModifiedTime 05/12/2005/12/2025 URINA LYSIS WITH MICRO color YELLOW Not Available [facility] [address], [place], [address], 05/12/2025 12:58:05 05/12/2005/12/2025 URINA LYSIS WITH MICRO clarity CLEAR Not Available [facility] [address], [place], [address], 05/12/2025 12:58:05 05/12/2005/12/2025 URINA LYSIS WITH MICRO glu NEGATI VE Not Available [facility] [address], [place], [address], 05/12/2025 12:58:05 05/12/2005/12/2025 URINA LYSIS WITH MICRO bili NEGATI VE Not Available [facility] [address], [place], [address], 05/12/2025 12:58:05 05/12/2005/12/2025 URINA LYSIS WITH MICRO ket NEGATI VE Not Available [facility] [address], [place], [address], 05/12/2025 12:58:05 05/12/2005/12/2025 URINA LYSIS WITH MICRO S.g 1.015 1.005- 1.025 Not Available [facility] [address], [place], [address], 05/12/2025 12:58:05 05/12/2005/12/2025 URINA LYSIS WITH MICRO pH 6.0 5.0-7. 0 Not Available [facility] [address], [place], [address], 05/12/2025 12:58:05 05/12/2005/12/2025 URINA LYSIS WITH MICRO pro 1+ high Not Available [facility] [address], [place], [address], 05/12/2025 12:58:05 05/12/2005/12/2025 URINA LYSIS WITH MICRO uro 0.2 E.U./D L Not Available [facility] [address], [place], [address], 05/12/2025 12:58:05 05/12/2005/12/2025 URINA LYSIS WITH MICRO nit NEGATI VE Not Available [facility] [address], [place], [address], 05/12/2025 12:58:05 05/12/2005/12/2025 URINA LYSIS WITH MICRO blo 1+ high Not Available [facility] [address], [place], [address], 05/12/2025 12:58:05 05/12/2005/12/2025 URINA LYSIS WITH MICRO galilea 3+ high Not Available [facility] [address], [place], [address], 05/12/2025 12:58:05 05/12/2005/12/2025 URINA LYSIS WITH MICRO WBC 40-50 abnormal Not Available [facility] [address], [place], [address], 05/12/2025 12:58:05 05/12/2005/12/2025 URINA LYSIS WITH MICRO RBC 10-12 abnormal Not Available [facility] [address], [place], [address], 05/12/2025 12:58:05 05/12/2005/12/2025 URINA LYSIS WITH MICRO epi cells 1-2 Not Available [facility] [address], [place], [address], 05/12/2025 12:58:05 05/12/2005/12/2025 URINA LYSIS WITH MICRO bacteria 1+ MIXED KAVYA abnormal Not Available [facility] [address], [place], [address], 05/12/2025 12:58:05 05/12/2005/12/2025 URINA LYSIS WITH MICRO other NEGATI VE Not Available [facility] [address], [place], [address], 05/12/2025 12:58:05 05/12/2005/15/2025 CULTU RE, URINE , ROUTI NE culture, urine, routine SEE NOTE abnormal CULTU RE, URINE , ROUTI NE Micro Numbe r: [id number] Test Statu s: Final Speci men [...] lexin and lorac arbef . Not Available [address] [place], [address], 05/15/2025 18:05:34 05/27/2005/29/2025 CULTU RE, URINE , ROUTI NE culture, urine, routine SEE NOTE CULTU RE, URINE , ROUTI NE Micro Numbe r: [id number] Test Statu s: Final Speci men [...] Tube, is recom val d. Not Available [address] [address] [place], [address], 05/29/2025 02:44:05 05/27/2005/27/2025 urina lysis , dipst ick Leukocytes Small Not Available [facility] ([facility]) [address] [place] [address], [address], 05/27/2025 09:08:23 05/27/2005/27/2025 urina lysis , dipst ick Nitrite negati ve Not Available [facility] ([facility]) [address] [place], [address], 05/27/2025 09:08:23 05/27/2005/27/2025 urina lysis , dipst ick Urobilinogen .2 Not Available [facility] ([facility]) [address] [place], [address], 05/27/2025 09:08:23 05/27/2005/27/2025 urina lysis , dipst ick Protein 30 Not Available [facility] ([facility]) [address] [place], [address], 05/27/2025 09:08:23 05/27/2005/27/2025 urina lysis , dipst ick pH 6.5 Not Available [facility] ([facility]) [address] [place], [address], 05/27/2025 09:08:23 05/27/2005/27/2025 urina lysis , dipst ick Blood Small Not Available [facility] ([facility]) [address] [place], [address], 05/27/2025 09:08:23 05/27/2005/27/2025 urina lysis , dipst ick Specific Vest 1.015 Not Available [facility] ( [facility]) [address] [place], [address], 05/27/2025 09:08:23 05/27/2005/27/2025 urina lysis , dipst ick Ketone Negati ve Not Available [facility] ([facility]) [address] [place], [address], 05/27/2025 09:08:23 05/27/2005/27/2025 urina lysis , dipst ick Bilirubin Negati ve Not Available [facility] ([facility]) [address] [place], [address], 05/27/2025 09:08:23 05/27/20 25 05/27/2025 urina lysis , dipst ick Glucose Negati ve Not Available [facility] ([facility]) [address] [place], [address], 05/27/2025 09:08:23 05/27/20 25 05/27/2025 urina lysis , dipst ick Appearance Clear Not Available [facility] ([facility]) [address] [place], [address], 05/27/2025 09:08:23 05/27/2005/27/2025 urina lysis , dipst ick Color Yellow Not Available [facility] ([facility]) [address] [place], [address], 05/27/2025 09:08:23 Result Notes None recorded. Problems Name Problem SNOMED Code Status Onset Date Resolution Date Notes Provider Name and Address Organization Details Recorded Time Acute sinusiti s 31922762 Completed 202003/30/2021 SINUSITI S - Status is Inactive ; Recorded 03/30/20 8:32AM by Veronica Cam CMT, Annotati on/Adden dum; Promoted ; acuity set as *; Not Available [facility] 3 03:08:33 Bipolar I disorder 911571749 Completed 202003/30/2021 BIPOLAR AFFECTIV E DISORDER - Status is Inactive ; Recorded 03/30/20 21 9:36AM by DAVID Szymanski, Office Visit; Promoted ; acuity set as *; Not Available [facility] 3 03:08:33 Coronary atherosc lerosis 596809921 Active 2021 [facility]UCK robles [facility] 5 08:24:40 [facility] l hyperten andrews 08243721 Active 2022 CHUCK robles [facility] 5 08:24:40 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 07813893 Completed 202201/19/2025 CHUCK robles, [facility] 5 08:39:16 Anxiety 42973021 Active 2022 CHUCK GONZALEZ null, [facility] 5 08:24:40 Liver mass 305593428 Active 2022 Radha Ruby null, [facility] 3 11:32:37 Hypergly cemia 18479891 Active 2022 CHUCK robles, [facility] 5 08:24:40 Mass of urinary bladder 281053140 Active 2022 Radha robles, [facility] 3 11:33:05 Myocardi al infarcti on 38959026 Active 2022 CHUCK robles, [facility] 5 08:24:40 Dysphagi a 95715059 Active 2022 Radha robles, [facility] 3 11:34:05 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 3 11:34:23 Malignan t neoplasm of prostate 969953070 Completed 202201/19/2025 CHUCK robles, [facility] 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 01524578 Active 2024 Tatiana Bradley MD [address] [place] [address], [address] , [facility], [place] 10:01:19 Hyperten sive heart failure 65556216 Active 2024 CHUCK robles [facility], [place] 08:40:35 Congesti ve heart failure 75728114 Active 2024 CHUCK robles [facility], [place] 5 08:40:52 Chronic anemia 828100594 Active 2024 Tatiana Bradley MD [address] [place] [address], [address] , [facility], [place] 10:01:24 History of malignan t neoplasm 465490809 Active 2024 Tatiana Bradley MD [address] [place] [address], [address] , [facility], [place] 10:02:38 Problem Notes None recorded. Procedures Surgical History Date Name Laterality Status Provider Name and Address Organization Details Recorded Time 03/10/20 24 echocardiography completed CHUCK GONZALEZ [facility] [place] Garcia 01/19/2025 14:27:18 placement of stent in coronary artery [facility] 09:37:30 insertion of carotid artery stent [facility] 09:38:34 Imaging Results None recorded. Procedure [...] Available Not Available No t Available nystatin [id number] UNIT OINTMENT ,BID 03/30 completed Not Available Not Available Not Available alprazola m two times daily, as needed 07/01 completed Recorded 03/12/20 22 2:13PM by Bryn Sandoval DO, Office Visit; Refill Quantity : 10; Tablet; Not Available Not Available Not Available lisinopri l daily 12/29 completed cs/smf; 18652; Recorded 07/31/19 22 7:59AM by Komal Aragon (Authori zed through Bryn Sandoval DO), Office Visit; Refill Quantity : 30; Tablet; Not Available Not Available Not Available Crestor daily 12/29 completed 76030; Recorded 08/31/19 23 11:17AM by Liss Chaparro [...] Updated DateTime 5 187.96 cm 25.2 kg/m2 34297.1 g 98.1 [degF] 73 /min 96 % 96 % 136/72 mm[Hg] Beverly Chase [facility] 09:17:33 Social History Question Answer Notes LastModified by Organizat ion Details LastModified Time Tobacco Smoking Status Never Smoker Chante Cyril robles [facility] 01/19/2025 09:36:24 Are You Blind Or Do You Have Difficulty Seeing? No [email or web address] Information not available 10/03/2022 Are You Deaf Or Do You Have Serious Difficulty Hearing? No [email or web address] Information not available 10/03/2022 What Was The Date Of Your Most Recent Tobacco Screening? 05/27/2025 [email or web address] Information not available 05/27/2025 Do You Have Difficulty Walking Or Climbing Stairs? No [email or web address] Information not available 10/03/2022 Sex: Unknown Functional Status Question Answer Note LastModified by Organizat ion Details LastModified Time Do you use any illicit or recreational drugs? No [email or web address] Information not available 01/19/2025 What is your level of alcohol consumption? None [email or web address] Information not available 01/19/2025 Are you able to walk independently without assistance or assistive devices? YESWOREST [email or web address] Information not available 10/03/2022 Do you have difficulty doing errands alone? No Information not available 10/03/2022 Are you able to care for yourself independently? Yes [email or web address] Information not available 10/03/2022 Do you have difficulty dressing, bathing, grooming, or toileting? No [email or web address] Information not available 10/03/2022 Mental Status Question Answer Note LastModified by Organization D etails LastModified Time Do you have difficulty concentrating, remembering or making decisions? No [email or web address] Information no t available 10/03/2022 Family History [...] ICD10 Code Diagnosis IMO Codes Diagnosis Note [id number] PAMELLA JACOB APRN [facility] ([facility]) [address] [place] [address] 05/12/2025 12:37:37 05/12/2025 14:28:11 Dysuria 37673710 R30.0 03017 Acute urin patti tract infection 906007768 N39.0 059825 [id number] DAVID WELLS [facility] ([facility]) [address] [place] [address] 05/27/2025 09:03:43 05/27/2025 13:47:42 Dysuria 31282191 R30.0 62588 Discussed to take antibiotic as prescribed until [...] concernsPa tient verbalized understand ing of plan. Health Concerns Section Related Observation LastModified by Organization Detai ls LastModified Time None Recorded Concern Status LastModified by Organization Details LastModified Time None Recorded Payers Encounter Date Sequence Insurance Name Policy Number Policy Laughlin Covered Member ID Laughlin Member ID Guarantor Name 05/27/2025 1 [facility] (MEDICARE REPLACEMENT/A DVANTAGE - PPO) [id number] Bob Barreto [id number] Bob Barreto Notes Date Note Type Note Provider Name and Address Organization Details Recorded Time 05/27/2025 text/html ROS as noted in the HPI walk in ptPt has urinary burning, frequency and urgency that started last night. Took some antibiotics from previous discontinued treatment. Most recently on Augmentin which he stopped earlier this week. DAVID WELLS [address] [place] [address], [phone], [facility] 05/27/2025 13:37:58
== END 2025-06-02 04:20 | disposition home or self-care (01) ==
PROVIDERS: Physician Assistant; Emergency Provider Student in an Organized Health Care Education/Training Program; PCP Family Medicine
DX: I25.118 Atherosclerotic heart disease of native coronary artery with other forms of angina pectoris (principal); N39.0 Urinary tract infection, site not specified; Z79.82 Long term (current) use of aspirin; E78.5 Hyperlipidemia, unspecified; I11.0 Hypertensive heart disease with heart failure; I50.20 Unspecified systolic (congestive) heart failure; Z85.51 Personal history of malignant neoplasm of bladder
CPT/HCPCS: 36415; 80053; 83735; 83880; 84100; 84484; 85025; 85651; 86141; 93005; 99285

== ENCOUNTER → 2025-06-25 10:11 | Outpatient (BNVA) | payer MEDICARE, SELFPAY | PROVIDERS: PCP Family Medicine; Visit Provider Internal Medicine Cardiovascular Disease | DX: I11.0 Hypertensive heart disease with heart failure (principal); I50.20 Unspecified systolic (congestive) heart failure; I25.10 Atherosclerotic heart disease of native coronary artery without angina pectoris; E78.5 Hyperlipidemia, unspecified; F41.9 Anxiety disorder, unspecified | CPT/HCPCS: 99214 ==